=== PATIENT | male | born 2000 | race Caucasian/White ===

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

== ENCOUNTER 2020-02-19 11:04 | Inpatient (IN) | payer MEDICAID, SELFPAY ==
[2020-02-19 11:08] VITALS: BP 160/73; PULSE 89; RESP 16; TEMP 36.8; O2SAT 99
--- NOTE | 2020-02-19 11:28 | CMSP_ITS ---
- If Service Date Differs Date of service: 02/19/20 Time of Service: 11:28 Care Management Safety Plan Chief Complaint: Skyler is a 19 year old male who presents in the emergency department for suicidal and homicidal ideation. Skyler has diagnoses of record of conduct disorder, depressed mood, drug abuse, and insomnia. He was hospitalized at the [facility] for suicidal ideation in January of 2019. Skyler is pleasant and talkative when meets with him. He talks in great detail about his view of himself, others and the world. During the conversation, he mentions he was involved in a relationship with a young woman who recently moved out of state and shares that the loss of this relationship is contributing to his suicidal thoughts. Skyler was assessed by Jania [facility] crisis screener, and found to meet criteria for a voluntary psychiatric hospitalization. A referral is faxed to [facility] for review. All other [facility] are full at this time and not accepting referrals. VOLUNTARY FOR INPATIENT PSYCHIATRIC STABILIZATION. Patient is appropriate in all interactions since arriving at [facility]; Pt has demonstrated appropriate coping and communication skills, has articulated his needs and concerns and is fully engaged during staff interactions. Safety plan has been established with patient, and care team, to adhere to patient goals, identify restrictions based on behavioral status, address nutrition, and determine allowed personal belongings, tools for hygiene and personal care. Determine level of activity including ambulation, level of supervision, visitors, and determine privileges based on behaviors and level of engagement by pt. SAFETY PLAN: 1. Will remain on suicide precautions and in paper clothes. 2. Will remain in room under direct supervision of one-on-one staff at all times provided by CPSO, HOOKER LASTER, SUPPORT ASSOCIATE roll scale worker. 3. May have paper cups, plates, finger foods as well as a cardboard spoon with which to eat meals. 4. Follow [facility] Management of the Admitted Behavioral Health Patient policy. 5. Comfort bath system only while in the ED. If moved to Med/Surg, patient will be allowed to shower at nursing discretion. 6. No personal belongings 7. Visitors: No visitors at this time. 8. Activities: Soft tip markers, paper, television if available, and other activities at nursing discretion. He enjoys talking to people and likes to draw. 8. No telephone privileges at this time. 9. Due to VOLUNTARY status, if patient wishes to leave [facility], the [facility] plaster and stucco worker must be contacted to re-evaluate patient prior to patient exiting the building. If deemed appropriate for inpatient psychiatric care, safety plan will be established with patient, and care team, to adhere to patient goals, identify restrictions based on behavioral status, address nutrition, and determine allowed personal belongings, tools for hygiene and personal care. As well plan will determine level of activity including ambulation, level of supervision, visitors, and determine privileges based on level of acuity, behaviors and level of engagement by patient.
[2020-02-19 12:02] LABS: Abs Immature Grans 0.08 10^3/uL (0.0-0.06); Absolute Basophil Count 0.05 10^3/uL (0.0-0.2); Absolute Eosinophil Count 0.15 10^3/uL (0.0-0.7); Absolute Lymphocyte Count 1.96 10^3/uL (1.2-3.4); Absolute Monocyte Count 0.58 10^3/uL (0.1-0.8); Absolute Neutrophil Count 4.43 10^3/uL (1.2-6.7); Basophils % 0.7; Eosinophils % 2.1; HCT 47.9 % (40.0-50.0); HGB 16.1 g/dL (13.5-17.5); Immature Grans % 1.1; MCH 31.7 pg (27.0-33.0); MCHC 33.6 % (32.0-36.0); MCV 94.3 fL (80-95); MPV 9.6 fL (8.0-11.0); Neutrophils % 61.1; Nucleated RBC 0 %; Platelet Count 274 10^3/uL (130-400); RBC 5.08 10^6/uL (4.36-5.78); RDW 11.9 % (11.8-14.1); RDW-SD 42.1 fL; WBC 7.25 10^3/uL (4.4-10.8)
[2020-02-19 12:26] LABS: ALT 61 U/L (16-63); AST 30 U/L (15-37); Albumin 4.4 g/dL (3.4-5.0); Alkaline Phosphatase 78 U/L (46-116); Anion Gap 9.1 mmol/L (3-11); BUN 13 mg/dL (7-18); Bilirubin, Total 0.5 mg/dL (0.2-1.0); CO2 27.9 mmol/L (21.0-32.0); CREATININE 1.05 mg/dL (0.70-1.30); Calcium 9.6 mg/dL (8.5-10.1); Chloride 101 mmol/L (98-107); Glucose 106 mg/dL (74-106); Potassium 3.8 mmol/L (3.5-5.1); Sodium 138 mmol/L (136-145); TSH 2.15 uIU/mL (0.52-4.13); Total Protein 7.8 g/dL (6.4-8.2)
--- NOTE | 2020-02-19 12:34 | PDOC.MHCN_ITS ---
Date of service: 02/19/20 Time of Service: 12:00 Mental Health Crisis Note Presenting Issue How did you arrive at the ED and why did you come: Client arrived by himself to the ED Precipitating Factors Client endorsed SI and HI but describes them as intrusive thoughts and that he would not act on them. Disposition BEHAVIOR: Client was cooperative but presented with apprehension. EYE CONTACT: Client was able to maintain an appropriate level of eye contact. MOOD: Client presented with euthymic mood. AFFECT: Client presented with blunted affect APPETITE: Client stated he his appetite was okay. SLEEP(trouble falling/staying asleep: Client reported he had not slept for 2 days Plan Client is has agreed to go inpatient on voluntary status. Client is to stay at [facility] till he gets placement. Signature Clinician's Name/Title: Jania Mcdaniel Emergency Services Clinician
--- NOTE | 2020-02-19 12:34 | NUR.NOTE ---
Nursing Note: offered food. Pt states he is fasting and declines food at this time. Pt states he is gluten free and only eats meat or vegetables.
[2020-02-19 12:37] LABS: ETHANOL BLOOD < 3.0 mg/dL (<3)
[2020-02-19 12:43] LABS: Bilirubin Negative (Negative); Blood Negative (Negative); Clarity Clear (Clear); Glucose Negative (Negative); Ketones Negative (Negative); Leukocyte Esterase Negative (Negative); Nitrite Negative (Negative); Specific Gravity 1.025 (1.005-1.025); Urobilinogen 0.2 EU/dL (Up TO 0.2)
[2020-02-19 12:54] LABS: *AMPHETAMINES SCREEN URINE Negative (Negative); *BARBITURATES SCREEN URINE Negative (Negative); *BENZODIAZEPINES SCREEN URINE Negative (Negative); Cannabinoids THC POSITIVE (Negative); Cocaine Screen,Urine Negative (Negative); METHADONE URINE SCREEN Negative (Negative); OPIATES URINE SCREEN Negative (Negative); Tricyclic Antidepressants Negative (Negative)
--- NOTE | 2020-02-19 12:57 | PDOC.MHCN ---
Date of service: 02/23/20 Time of Service: 09:40 Mental Health Crisis Note Presenting Issue How did you arrive at the ED and why did you come: Client arrived to ED via self Precipitating Factors Client endorsed SI but no HI. Client described this as intrusive thoughts and that he would not act on them. Disposition BEHAVIOR: Client presented as cooperative but uninterested in talking EYE CONTACT: Client made no eye contact. Client had his eyes closed the whole time MOOD: Client presented with dysphoric mood AFFECT: Client presented with flat affect APPETITE: Client reported he had good appetite SLEEP(trouble falling/staying asleep: Client reported he had
--- NOTE | 2020-02-19 13:02 | W.ED.GENAD ---
Discharge Plan Disposition Patient Disposition: OTHER Condition: Serious Discharge Details Chief Complaint: PsychEval Clinical Impression: Suicidal ideation, Homicidal ideation Primary Care Provider: Laron Smith ED Provider: Neo Coles Home Meds and New Rx's Prescriptions: No Action omeprazole 20 mg capsule,delayed release(DR/EC) 20 mg PO DAILY Qty: 90 RF: 2 Medical Decision Making 18-year-old gentleman with slightly unclear psychiatric history, not taking any psychiatric medications, presents to the ER reporting suicidal and homicidal ideations. He reports that he is a high school dropout, lives on food stamps, a female friend recently moved away, all causing increased stress. He denies any self-harm today. He denies homicidal ideations to anyone in particular. Denies recent illness or trauma. No medical complaints at this time. I have placed a consultation to care management, mental health, and placed a CPSO. Patient is calm and cooperative here in the ER. Clinically I believe that he is medically cleared but given he is requesting inpatient hospitalization I will obtain laboratory values for medically clearing at a psychiatric facility. COVID also pending Laboratory values do not reveal any obvious emergent process. TSH 2.15 urine tox screen positive for THC, alcohol less than 3. [facility], [facility] human services, evaluated the patient. Please see their note. They are going to initiate a search for voluntary placement. He will need a negative COVID prior to placement. Given this we will speak with the hospitalist team to admit to our facility until psychiatric placement can be found. Medical Records Medical records reviewed: Yes I reviewed the patient's medical records. Lab Data Lab results reviewed: Yes I reviewed the patient's lab results. Lab results narrative: Laboratory Tests Range/Units 02/19/20 02/19/20 02/19/20 11:55 11:55 12:25 WBC (4.4-10.8) 10^3/uL 7.25 RBC (4.36-5.78) 10^6/uL 5.08 Hgb (13.5-17.5) g/dL 16.1 Hct (40.0-50.0) % 47.9 MCV (80-95) fL 94.3 MCH (27.0-33.0) pg 31.7 MCHC (32.0-36.0) % 33.6 RDW (11.8-14.1) % 11.9 Plt Count (130-400) 10^3/uL 274 MPV (8.0-11.0) fL 9.6 Immature Gran % 1.1 Neutrophils % 61.1 Lymphocytes % 27.0 Monocytes % 8.0 Eosinophils % 2.1 Basophils % 0.7 Nucleated RBC % % 0 Absolute Neutrophils (1.2-6.7) 10^3/uL 4.43 Absolute Lymphocytes (1.2-3.4) 10^3/uL 1.96 Absolute Monocytes (0.1-0.8) 10^3/uL 0.58 Absolute Eosinophils (0.0-0.7) 10^3/uL 0.15 Absolute Basophils (0.0-0.2) 10^3/uL 0.05 Sodium (136-145) mmol/L 138 Potassium (3.5-5.1) mmol/L 3.8 Chloride (98-107) mmol/L 101 Carbon Dioxide (21.0-32.0) mmol/L 27.9 Anion Gap (3-11) mmol/L 9.1 BUN (7-18) mg/dL 13 Creatinine (0.70-1.30) mg/dL 1.05 Estimated GFR/1.73 m2 (mL/min/1.73m2) >= 60.00 Glucose (74-106) mg/dL 106 Calcium (8.5-10.1) mg/dL 9.6 Total Bilirubin (0.2-1.0) mg/dL 0.5 AST (15-37) U/L 30 ALT (16-63) U/L 61 Alkaline Phosphatase (46-116) U/L 78 Total Protein (6.4-8.2) g/dL 7.8 Albumin (3.4-5.0) g/dL 4.4 TSH (0.52-4.13) uIU/mL 2.15 Urine Color (Yellow) Urine Clarity (Clear) Urine pH (5-8) Ur Specific [place] (1.005-1.025) Urine Protein (Negative) mg/dL Urine Ketones (Negative) mg/dL Urine Blood (Negative) Urine Nitrite (Negative) Urine Bilirubin (Negative) Urine Urobilinogen (Up TO 0.2) EU/dL Ur Leukocyte Esterase (Negative) Urine Glucose (Negative) mg/dL Urine Opiates Screen (Negative) Negative Urine Methadone Screen (Negative) Negative Ur Barbiturates Screen (Negative) Negative Ur Tricyclics Screen (Negative) Negative Ur Amphetamines Screen (Negative) Negative U Benzodiazepines Scrn (Negative) Negative Urine Cocaine Screen (Negative) Negative Ur THC Screen (Negative) Positive A Ethyl Alcohol (<3) mg/dL < 3.0 Range/Units 02/19/20 12:25 WBC (4.4-10.8) 10^3/uL RBC (4.36-5.78) 10^6/uL Hgb (13.5-17.5) g/dL Hct (40.0-50.0) % MCV (80-95) fL MCH (27.0-33.0) pg MCHC (32.0-36.0) % RDW (11.8-14.1) % Plt Count (130-400) 10^3/uL MPV (8.0-11.0) fL Immature Gran % Neutrophils % Lymphocytes % Monocytes % Eosinophils % Basophils % Nucleated RBC % % Absolute Neutrophils (1.2-6.7) 10^3/uL Absolute Lymphocytes (1.2-3.4) 10^3/uL Absolute Monocytes (0.1-0.8) 10^3/uL Absolute Eosinophils (0.0-0.7) 10^3/uL Absolute Basophils (0.0-0.2) 10^3/uL Sodium (136-145) mmol/L Potassium (3.5-5.1) mmol/L Chloride (98-107) mmol/L Carbon Dioxide (21.0-32.0) mmol/L Anion Gap (3-11) mmol/L BUN (7-18) mg/dL Creatinine (0.70-1.30) mg/dL Estimated GFR/1.73 m2 (mL/min/1.73m2) Glucose (74-106) mg/dL Calcium (8.5-10.1) mg/dL Total Bilirubin (0.2-1.0) mg/dL AST (15-37) U/L ALT (16-63) U/L Alkaline Phosphatase (46-116) U/L Total Protein (6.4-8.2) g/dL Albumin (3.4-5.0) g/dL TSH (0.52-4.13) uIU/mL Urine Color (Yellow) Yellow Urine Clarity (Clear) Clear Urine pH (5-8) 6.0 Ur Specific [place] (1.005-1.025) 1.025 Urine Protein (Negative) mg/dL Negative Urine Ketones (Negative) mg/dL Negative Urine Blood (Negative) Negative Urine Nitrite (Negative) Negative Urine Bilirubin (Negative) Negative Urine Urobilinogen (Up TO 0.2) EU/dL 0.2 Ur Leukocyte Esterase (Negative) Negative Urine Glucose (Negative) mg/dL Negative Urine Opiates Screen (Negative) Urine Methadone Screen (Negative) Ur Barbiturates Screen (Negative) Ur Tricyclics Screen (Negative) Ur Amphetamines Screen (Negative) U Benzodiazepines Scrn (Negative) Urine Cocaine Screen (Negative) Ur THC Screen (Negative) Ethyl Alcohol (<3) mg/dL HPI General Mode of arrival: ambulatory. Date/Time Provider Initiated Documentation: 02/19/20 11:18. Limitations to Documentation: no limitations. Information obtained by: patient. HPI Narrative: This is a 19-year-old male who presents to the ER feeling both suicidal and homicidal. He reports that has been going on for quite some time but worse over the last week. A female neighbor recently moved and this was a stressor. He admits to a history of anxiety, depression, possibly bipolar. He tells me that he questions if he may have ADHD. He is not on any medications for any psychiatric disorders. He denies recent illness or trauma. Although he is feeling both suicidal and homicidal he does not want to act upon either of these feelings. He admits to having self cut in the past but never a true suicide attempt. He admits to smoking cigarettes, occasional alcohol, and polysubstance abuse whenever he has the opportunity. He did not do anything today to harm himself. He is requesting a voluntary inpatient psychiatric placement. He does have an outpatient counselor but he has not talked to them today. He tells me that he has been doing some of his own research and wonders if gabapentin may be an appropriate medication for him. Related Data Home Medications Medication Instructions Recorded Confirmed omeprazole 20 mg capsule,delayed 20 mg PO DAILY #90 cap 12/21/19 02/19/20 release Previous Rx's Medication Instructions Recorded omeprazole 20 mg capsule,delayed 20 mg PO DAILY #90 cap 12/21/19 release Allergies Allergy/AdvReac Type Severity Reaction Status Date / Time ampicillin Allergy Skin Rash Verified 02/19/20 11:15 ampicillin sodium Allergy Skin Rash Verified 02/19/20 11:15 [From Unasyn] sulbactam sodium Allergy Skin Rash Verified 02/19/20 11:15 [From Unasyn] sulfamethoxazole Allergy Skin Rash Verified 02/19/20 11:15 [From Bactrim] trimethoprim [From Bactrim] Allergy Skin Rash Verified 02/19/20 11:15 acetaminophen [From Tylenol] AdvReac Intermediate head fog Verified 02/19/20 11:15 amitriptyline AdvReac Intermediate Agitation Verified 02/19/20 11:15 trazodone AdvReac Intermediate Agitation Verified 02/19/20 11:15 diphenhydramine AdvReac Other (See Verified 02/19/20 11:15 [From Benadryl] Comment) General Stated Complaint: PsychEval RADHA: 2 Review of Systems Constitutional Constitutional: Denies fatigue, Denies fever(s) and Denies headache(s) Eyes Eyes: Denies change in vision ENT Ears, Nose, Mouth, and Throat: Denies headache(s) and Denies neck pain Cardiovascular Cardiovascular: Denies chest pain and Denies dyspnea Respiratory Respiratory: Denies dyspnea Gastrointestinal Gastrointestinal: Denies abdominal pain, Denies nausea and Denies vomiting Musculoskeletal Musculoskeletal: Denies neck pain, Denies numbness and Denies tingling Integumentary/Breasts Skin/Breast: Denies rash Neurologic Neurologic: Denies headache(s), Denies numbness and Denies tingling Psychiatric Psychiatric: Reports anxiety, Reports depression, Reports homicidal ideation and Reports suicidal ideation Endocrine Endocrine: Denies fatigue [facility] Medical History Conduct disorder (Acute) Depressed mood (Chronic) Drug abuse (Acute) Primary insomnia (Acute) Surgical History S/P appendectomy (Acute ~06/17/10) Family History Father Substance abuse Depression Mother Anxiety Sister Anxiety Depression Social History Smoking/Tobacco Use Status: Current-Occasional Tobacco: How many years used: 1 Alcohol Intake: current Alcohol Intake frequency: a few times a month Drug use: Never Substance use type: marijuana and hallucinogens Details: Pt has used various illicit hallucinigens in the past but denies using them currently Adopted: No Caregiver/Support person: No Foster care: No Household members: none Housing: other Do you need help understanding health information?: Rarely current occupation: UnEmployed Sexually active: Yes Do you think of yourself as: straight/heterosexual Current gender identity: male Do you feel safe at home: No Do you feel safe in your relationship?: No Exam Const General: cooperative, healthy appearing, comfortable and no acute distress Orientation: alert, awake and oriented x3 HENMT Head: normal to inspection, normocephalic and atraumatic Face and sinus: normal facial exam Mouth: moist mucous membranes Throat: posterior oropharynx normal Eyes General: appearance normal, both eyes and all related structures Alignment and Position: alignment normal Periorbital: periorbital findings normal Eyelids: eyelids normal Conjunctivae: conjunctivae normal Sclera: sclerae normal Cornea: corneas normal Pupils: PERRL EOM: EOM intact bilaterally Direct ophthalmoscopy: normal light reflex Neck Neck: normal visual inspection, full ROM, no meningeal signs, trachea midline and supple Resp Effort & Inspection: normal respiratory effort and able to speak in complete sentences Auscultation: clear to auscultation bilaterally Cardio Rate: regular rate Rhythm: regular rhythm GI Palpation: soft and nontender Back/Spine/Pelvis Back: No back tenderness Skin General skin exam: no rashes or lesions noted Neuro General: patient alert, patient awake, patient oriented x3, moves all extremities and no focal motor deficits Cranial Nerves: CN's II-XI intact bilaterally Speech: speech normal Gait: normal gait Motor: muscle tone normal throughout Sensory Exam: no sensory deficits noted Extrem General: normal to inspection, full ROM and capillary refill normal Psych Appearance: grossly normal Mental Status: mental status grossly normal Speech and Movement: speech and movement normal Mood: dysthymic mood Affect: sad Attitude: cooperative Thought Content: homicidality and suicidality Insight: fair Judgment: fair Course Vital Signs Vital signs: Vital Signs Temperature 36.8 C 02/19/20 11:08 Pulse 89 02/19/20 11:08 Respiratory Rate 16 02/19/20 11:08 Blood Pressure 160/73 H 02/19/20 11:08 Pulse Oximetry 99 02/19/20 11:08 Temperature 36.8 C 02/19/20 11:08 Temperature Source Tympanic 02/19/20 11:08 Pulse 89 02/19/20 11:08 Respiratory Rate 16 02/19/20 11:08 Respiratory Effort Non-Labored 02/19/20 11:48 Blood Pressure 160/73 H 02/19/20 11:08 Blood Pressure Position Sitting 02/19/20 11:08 Pulse Oximetry 99 02/19/20 11:08 Oxygen Delivery Method Room Air 02/19/20 11:08 Oxygen Flow Rate 0 02/19/20 11:08 Pain Level 4 02/19/20 11:08 Comment 02/19/20 11:08 Lab/Test Results Lab/Test Results: Laboratory Tests Range/Units 02/19/20 02/19/20 02/19/20 11:55 11:55 12:25 WBC (4.4-10.8) 10^3/uL 7.25 RBC (4.36-5.78) 10^6/uL 5.08 Hgb (13.5-17.5) g/dL 16.1 Hct (40.0-50.0) % 47.9 MCV (80-95) fL 94.3 MCH (27.0-33.0) pg 31.7 MCHC (32.0-36.0) % 33.6 RDW (11.8-14.1) % 11.9 Plt Count (130-400) 10^3/uL 274 MPV (8.0-11.0) fL 9.6 Immature Gran % 1.1 Neutrophils % 61.1 Lymphocytes % 27.0 Monocytes % 8.0 Eosinophils % 2.1 Basophils % 0.7 Nucleated RBC % % 0 Absolute Neutrophils (1.2-6.7) 10^3/uL 4.43 Absolute Lymphocytes (1.2-3.4) 10^3/uL 1.96 Absolute Monocytes (0.1-0.8) 10^3/uL 0.58 Absolute Eosinophils (0.0-0.7) 10^3/uL 0.15 Absolute Basophils (0.0-0.2) 10^3/uL 0.05 Sodium (136-145) mmol/L 138 Potassium (3.5-5.1) mmol/L 3.8 Chloride (98-107) mmol/L 101 Carbon Dioxide (21.0-32.0) mmol/L 27.9 Anion Gap (3-11) mmol/L 9.1 BUN (7-18) mg/dL 13 Creatinine (0.70-1.30) mg/dL 1.05 Estimated GFR/1.73 m2 (mL/min/1.73m2) >= 60.00 Glucose (74-106) mg/dL 106 Calcium (8.5-10.1) mg/dL 9.6 Total Bilirubin (0.2-1.0) mg/dL 0.5 AST (15-37) U/L 30 ALT (16-63) U/L 61 Alkaline Phosphatase (46-116) U/L 78 Total Protein (6.4-8.2) g/dL 7.8 Albumin (3.4-5.0) g/dL 4.4 TSH (0.52-4.13) uIU/mL 2.15 Urine Color (Yellow) Urine Clarity (Clear) Urine pH (5-8) Ur Specific [place] (1.005-1.025) Urine Protein (Negative) mg/dL Urine Ketones (Negative) mg/dL Urine Blood (Negative) Urine Nitrite (Negative) Urine Bilirubin (Negative) Urine Urobilinogen (Up TO 0.2) EU/dL Ur Leukocyte Esterase (Negative) Urine Glucose (Negative) mg/dL Urine Opiates Screen (Negative) Negative Urine Methadone Screen (Negative) Negative Ur Barbiturates Screen (Negative) Negative Ur Tricyclics Screen (Negative) Negative Ur Amphetamines Screen (Negative) Negative U Benzodiazepines Scrn (Negative) Negative Urine Cocaine Screen (Negative) Negative Ur THC Screen (Negative) Positive A Ethyl Alcohol (<3) mg/dL < 3.0 Range/Units 02/19/20 12:25 WBC (4.4-10.8) 10^3/uL RBC (4.36-5.78) 10^6/uL Hgb (13.5-17.5) g/dL Hct (40.0-50.0) % MCV (80-95) fL MCH (27.0-33.0) pg MCHC (32.0-36.0) % RDW (11.8-14.1) % Plt Count (130-400) 10^3/uL MPV (8.0-11.0) fL Immature Gran % Neutrophils % Lymphocytes % Monocytes % Eosinophils % Basophils % Nucleated RBC % % Absolute Neutrophils (1.2-6.7) 10^3/uL Absolute Lymphocytes (1.2-3.4) 10^3/uL Absolute Monocytes (0.1-0.8) 10^3/uL Absolute Eosinophils (0.0-0.7) 10^3/uL Absolute Basophils (0.0-0.2) 10^3/uL Sodium (136-145) mmol/L Potassium (3.5-5.1) mmol/L Chloride (98-107) mmol/L Carbon Dioxide (21.0-32.0) mmol/L Anion Gap (3-11) mmol/L BUN (7-18) mg/dL Creatinine (0.70-1.30) mg/dL Estimated GFR/1.73 m2 (mL/min/1.73m2) Glucose (74-106) mg/dL Calcium (8.5-10.1) mg/dL Total Bilirubin (0.2-1.0) mg/dL AST (15-37) U/L ALT (16-63) U/L Alkaline Phosphatase (46-116) U/L Total Protein (6.4-8.2) g/dL Albumin (3.4-5.0) g/dL TSH (0.52-4.13) uIU/mL Urine Color (Yellow) Yellow Urine Clarity (Clear) Clear Urine pH (5-8) 6.0 Ur Specific [place] (1.005-1.025) 1.025 Urine Protein (Negative) mg/dL Negative Urine Ketones (Negative) mg/dL Negative Urine Blood (Negative) Negative Urine Nitrite (Negative) Negative Urine Bilirubin (Negative) Negative Urine Urobilinogen (Up TO 0.2) EU/dL 0.2 Ur Leukocyte Esterase (Negative) Negative Urine Glucose (Negative) mg/dL Negative Urine Opiates Screen (Negative) Urine Methadone Screen (Negative) Ur Barbiturates Screen (Negative) Ur Tricyclics Screen (Negative) Ur Amphetamines Screen (Negative) U Benzodiazepines Scrn (Negative) Urine Cocaine Screen (Negative) Ur THC Screen (Negative) Ethyl Alcohol (<3) mg/dL
[2020-02-19 14:00] VITALS: BP 127/82; PULSE 69; RESP 18; TEMP 35.8; O2SAT 100
--- NOTE | 2020-02-19 14:54 | HPE_ITS ---
Date of service: 02/19/20 Time of Service: 14:55 Assessment and Plan Assessment and plan (1) Depressed mood: Start date: 02/19/20 Start time: 15:14 Status: Chronic Assessment and plan: Reports to ED for thoughts of harming self and others, no active plans. Worsening depression from recent stressors. Not actively suicidal at this time. He is awaiting placement with COVID pending. Clinical observer present, cleared by the ED, made him voluntary for admission. Not currently on any medications for mood. (2) Homicidal ideation: Start date: 02/19/20 Start time: 15:15 Status: Acute Assessment and plan: As above Above case discussed with Dr. Ta who is in agreement. History of Present Illness History of Present Illness Chief Complaint: Psych Narrative: 19 y.o male presents to ED today with thoughts of Suicide and Homicide. Unclear on psychiatric history he does endorse previous stay at [facility] though he is not on any medications at this time. He denies self harm at this time. In the past he states he has been on an SSRI, other antonio he noah with stressors by using ketamin and LSD, last use was last week. Smokes marijuana and cigarettes daily. Currently he is not receiving psych assistance per him but has in the past. In the ED labs obtained unremarkable, urine tox screen positive for THC. COVID pending. He was asked to be admitted under hospitalist service while waiting bed placement. Review of Systems All systems reviewed & are unremarkable except as noted in HPI and below PFSH Medical History (Updated 02/19/20 @ 15:11 by Gypsy Boyce NP) Acne (Inactive) Anxiety (Inactive) Conduct disorder (Inactive) Depressed mood (Chronic) Drug abuse (Inactive) Encounter to establish care (Inactive) Poor appetite (Inactive) Primary insomnia (Inactive) Suicidal ideation (Inactive) Surgical History S/P appendectomy (Acute ~06/17/10) Family History Father Substance abuse Depression Mother Anxiety Sister Anxiety Depression Social History Smoking/Tobacco Use Status: Current-Occasional Tobacco: How many years used: 1 Alcohol Intake: current Alcohol Intake frequency: a few times a month Drug use: Never Substance use type: marijuana and hallucinogens Details: Pt has used various illicit hallucinigens in the past but denies using them currently Adopted: No Caregiver/Support person: No Foster care: No Household members: none Housing: other Do you need help understanding health information?: Rarely current occupation: UnEmployed Sexually active: Yes Do you think of yourself as: straight/heterosexual Current gender identity: male Do you feel safe at home: No Do you feel safe in your relationship?: No Meds Home Medications and Allergies Home Medications Medication Instructions Recorded Confirmed Type omeprazole 20 mg capsule,delayed 20 mg PO DAILY #90 cap 12/21/19 02/19/20 Rx release Allergies Allergy/AdvReac Type Severity Reaction Status Date / Time ampicillin Allergy Skin Rash Verified 02/19/20 11:15 ampicillin sodium Allergy Skin Rash Verified 02/19/20 11:15 [From Unasyn] sulbactam sodium Allergy Skin Rash Verified 02/19/20 11:15 [From Unasyn] sulfamethoxazole Allergy Skin Rash Verified 02/19/20 11:15 [From Bactrim] trimethoprim [From Bactrim] Allergy Skin Rash Verified 02/19/20 11:15 acetaminophen [From Tylenol] AdvReac Intermediate head fog Verified 02/19/20 11:15 amitriptyline AdvReac Intermediate Agitation Verified 02/19/20 11:15 trazodone AdvReac Intermediate Agitation Verified 02/19/20 11:15 diphenhydramine AdvReac Other (See Verified 02/19/20 11:15 [From Benadryl] Comment) Exam Const General: cooperative and no acute distress Nutritional Appearance: thin Orientation: alert, awake and oriented x3 HENMT Head: normal to inspection, normocephalic and atraumatic Mouth: moist mucous membranes Eyes General: appearance normal, both eyes and all related structures Conjunctivae: conjunctivae normal Sclera: sclerae normal Cornea: corneas normal Pupils: PERRL EOM: EOM intact bilaterally Neck Neck: normal visual inspection, full ROM and no JVD Chest Chest: normal inspection of the chest Resp Effort & Inspection: normal respiratory effort and able to speak in complete sentences Auscultation: clear to auscultation bilaterally Cardio Jugular venous pressure: no JVD Rate: regular rate Rhythm: regular rhythm Heart Sounds: S1 normal and S2 normal GI Inspection: normal to inspection Palpation: soft and no hepatosplenomegaly General: deferred Back/Spine/Pelvis Back: no CVA tenderness Thoracic/Lumbar Spine: thoracic and lumbar spine normal to inspection Skin General skin exam: no rashes or lesions noted Neuro General: patient alert, patient awake and patient oriented x3 Extrem General: normal to inspection, full ROM and no clubbing, cyanosis or edema Psych Speech and Movement: speech and movement normal Mood: expansive Affect: animated Attitude: avoids eye contact Thought Process: illogical Thought Content: ideas of reference Insight: poor Judgment: poor Results Labs Result diagrams: 02/19/20 11:55 02/19/20 11:55 Labs: Laboratory Results - last 24 hr 02/19/20 02/19/20 02/19/20 11:55 11:55 12:25 WBC 7.25 RBC 5.08 Hgb 16.1 Hct 47.9 MCV 94.3 MCH 31.7 MCHC 33.6 RDW 11.9 Plt Count 274 MPV 9.6 Immature Gran % 1.1 Neutrophils % 61.1 Lymphocytes % 27.0 Monocytes % 8.0 Eosinophils % 2.1 Basophils % 0.7 Nucleated RBC % 0 Absolute Neutrophils 4.43 Absolute Lymphocytes 1.96 Absolute Monocytes 0.58 Absolute Eosinophils 0.15 Absolute Basophils 0.05 Sodium 138 Potassium 3.8 Chloride 101 Carbon Dioxide 27.9 Anion Gap 9.1 BUN 13 Creatinine 1.05 Estimated GFR/1.73 m2 >= 60.00 Glucose 106 Calcium 9.6 Total Bilirubin 0.5 AST 30 ALT 61 Alkaline Phosphatase 78 Total Protein 7.8 Albumin 4.4 TSH 2.15 Urine Color Urine Clarity Urine pH Ur Specific [place] Urine Protein Urine Ketones Urine Blood Urine Nitrite Urine Bilirubin Urine Urobilinogen Ur Leukocyte Esterase Urine Glucose Urine Opiates Screen Negative Urine Methadone Screen Negative Ur Barbiturates Screen Negative Ur Tricyclics Screen Negative Ur Amphetamines Screen Negative U Benzodiazepines Scrn Negative Urine Cocaine Screen Negative Ur THC Screen Positive A Ethyl Alcohol < 3.0 02/19/20 12:25 WBC RBC Hgb Hct MCV MCH MCHC RDW Plt Count MPV Immature Gran % Neutrophils % Lymphocytes % Monocytes % Eosinophils % Basophils % Nucleated RBC % Absolute Neutrophils Absolute Lymphocytes Absolute Monocytes Absolute Eosinophils Absolute Basophils Sodium Potassium Chloride Carbon Dioxide Anion Gap BUN Creatinine Estimated GFR/1.73 m2 Glucose Calcium Total Bilirubin AST ALT Alkaline Phosphatase Total Protein Albumin TSH Urine Color Yellow Urine Clarity Clear Urine pH 6.0 Ur Specific [place] 1.025 Urine Protein Negative Urine Ketones Negative Urine Blood Negative Urine Nitrite Negative Urine Bilirubin Negative Urine Urobilinogen 0.2 Ur Leukocyte Esterase Negative Urine Glucose Negative Urine Opiates Screen Urine Methadone Screen Ur Barbiturates Screen Ur Tricyclics Screen Ur Amphetamines Screen U Benzodiazepines Scrn Urine Cocaine Screen Ur THC Screen Ethyl Alcohol Last Vital Signs Temp 35.8 C L 02/19/20 14:00 Pulse 69 02/19/20 14:00 Resp 18 02/19/20 14:00 BP 127/82 02/19/20 14:00 Pulse Ox 100 02/19/20 14:00 COVID-19 Screening Have you,or household,traveled outside [place] in last 14 days?: No Had IN PERSON contact w/suspected or confirmed C-19 person: No
[2020-02-19 22:13] LABS: COVID-19 RT-PCR UVMMC Result Negative (Negative)
[2020-02-20 00:08] VITALS: BP 117/73; PULSE 72; RESP 18; TEMP 36.9; O2SAT 99
[2020-02-20] MEDS: busPIRone 5 MG TAB (01:05)
[2020-02-20 08:36] VITALS: BP 110/68; PULSE 67; RESP 16; TEMP 35.7; O2SAT 98
--- NOTE | 2020-02-20 09:34 | PGE_ITS ---
Date of Service Date of service: 02/20/20 Time of Service: 09:34 Assessment and Plan Assessment and plan (1) Depressed mood: Start date: 02/20/20 Start time: 09:34 Status: Chronic Assessment and plan: Did request something for anxiety last night, specifically klonipin. He was given a dose of buspar. No anxious at this time. He is not having active thoughts of SI/HI 1:1 patient observer Awaiting bed placement. (2) Homicidal ideation: Start date: 02/20/20 Start time: 09:45 Status: Acute Assessment and plan: As above Above case discussed with Dr. Wharton who is in agreement. Subjective Subjective Patient reports: no new complaints Interval history since last seen: Lying in bed, no active thought SI/HI Exam Const General: cooperative and no acute distress Nutritional Appearance: thin Orientation: alert, awake and oriented x3 HENMT Head: normal to inspection, normocephalic and atraumatic Mouth: moist mucous membranes Eyes General: appearance normal, both eyes and all related structures Conjunctivae: conjunctivae normal Sclera: sclerae normal Cornea: corneas normal Pupils: PERRL EOM: EOM intact bilaterally Neck Neck: normal visual inspection, full ROM and no JVD Chest Chest: normal inspection of the chest Resp Effort & Inspection: normal respiratory effort and able to speak in complete sentences Auscultation: clear to auscultation bilaterally Cardio Jugular venous pressure: no JVD Rate: regular rate Rhythm: regular rhythm Heart Sounds: S1 normal and S2 normal GI Inspection: normal to inspection Palpation: soft and no hepatosplenomegaly General: deferred Back/Spine/Pelvis Back: no CVA tenderness Thoracic/Lumbar Spine: thoracic and lumbar spine normal to inspection Skin General skin exam: no rashes or lesions noted Neuro General: patient alert, patient awake and patient oriented x3 Extrem General: normal to inspection, full ROM and no clubbing, cyanosis or edema Psych Speech and Movement: speech and movement normal Mood: expansive Affect: animated Attitude: avoids eye contact Thought Process: illogical Thought Content: ideas of reference Insight: poor Judgment: poor Objective Objective Clinical Data: Abnormal lab results 02/19/20 Range/Units 12:25 Ur THC Screen Positive A (Negative) Vital Signs Temperature 35.7 C L 02/20/20 08:36 Temperature Source Tympanic 02/20/20 08:36 Pulse 67 02/20/20 08:36 Pulse Rhythm Regular 02/20/20 00:00 Respiratory Rate 16 02/20/20 08:36 Respiratory Effort 02/20/20 00:00 Respiratory Depth Normal 02/20/20 00:00 Respiratory Pattern Normal 02/20/20 00:00 Blood Pressure 110/68 02/20/20 08:36 Blood Pressure Position Sitting 02/19/20 11:08 Pulse Oximetry 98 02/20/20 08:36 Oxygen Delivery Method Room Air 02/20/20 08:36 Oxygen Flow Rate 0 02/20/20 08:36 Pain Level 0 02/20/20 08:36 Comment 02/19/20 11:08 Intake & Output 02/19/20 02/19/20 02/20/20 11:59 23:59 11:59 Intake Total 150 / 150 Balance 150 / 150 Weight 66.678 kg 66.678 kg Intake: Oral 150 / 150 Other: Voiding Methods Toilet Laboratory Results WBC 7.25 10^3/uL (4.4-10.8) 02/19/20 11:55 RBC 5.08 10^6/uL (4.36-5.78) 02/19/20 11:55 Hgb 16.1 g/dL (13.5-17.5) 02/19/20 11:55 Hct 47.9 % (40.0-50.0) 02/19/20 11:55 MCV 94.3 fL (80-95) 02/19/20 11:55 MCH 31.7 pg (27.0-33.0) 02/19/20 11:55 MCHC 33.6 % (32.0-36.0) 02/19/20 11:55 RDW 11.9 % (11.8-14.1) 02/19/20 11:55 Plt Count 274 10^3/uL (130-400) 02/19/20 11:55 MPV 9.6 fL (8.0-11.0) 02/19/20 11:55 Immature Gran % 1.1 02/19/20 11:55 Neutrophils % 61.1 02/19/20 11:55 Lymphocytes % 27.0 02/19/20 11:55 Monocytes % 8.0 02/19/20 11:55 Eosinophils % 2.1 02/19/20 11:55 Basophils % 0.7 02/19/20 11:55 Nucleated RBC % 0 % 02/19/20 11:55 Absolute Neutrophils 4.43 10^3/uL (1.2-6.7) 02/19/20 11:55 Absolute Lymphocytes 1.96 10^3/uL (1.2-3.4) 02/19/20 11:55 Absolute Monocytes 0.58 10^3/uL (0.1-0.8) 02/19/20 11:55 Absolute Eosinophils 0.15 10^3/uL (0.0-0.7) 02/19/20 11:55 Absolute Basophils 0.05 10^3/uL (0.0-0.2) 02/19/20 11:55 Sodium 138 mmol/L (136-145) 02/19/20 11:55 Potassium 3.8 mmol/L (3.5-5.1) 02/19/20 11:55 Chloride 101 mmol/L (98-107) 02/19/20 11:55 Carbon Dioxide 27.9 mmol/L (21.0-32.0) 02/19/20 11:55 Anion Gap 9.1 mmol/L (3-11) 02/19/20 11:55 BUN 13 mg/dL (7-18) 02/19/20 11:55 Creatinine 1.05 mg/dL (0.70-1.30) 02/19/20 11:55 Estimated GFR/1.73 m2 >= 60.00 (mL/min/1.73m2) 02/19/20 11:55 Glucose 106 mg/dL (74-106) 02/19/20 11:55 Calcium 9.6 mg/dL (8.5-10.1) 02/19/20 11:55 Total Bilirubin 0.5 mg/dL (0.2-1.0) 02/19/20 11:55 AST 30 U/L (15-37) 02/19/20 11:55 ALT 61 U/L (16-63) 02/19/20 11:55 Alkaline Phosphatase 78 U/L (46-116) 02/19/20 11:55 Total Protein 7.8 g/dL (6.4-8.2) 02/19/20 11:55 Albumin 4.4 g/dL (3.4-5.0) 02/19/20 11:55 TSH 2.15 uIU/mL (0.52-4.13) 02/19/20 11:55 Urine Color Yellow (Yellow) 02/19/20 12:25 Urine Clarity Clear (Clear) 02/19/20 12:25 Urine pH 6.0 (5-8) 02/19/20 12:25 Ur Specific [place] 1.025 (1.005-1.025) 02/19/20 12:25 Urine Protein Negative mg/dL (Negative) 02/19/20 12:25 Urine Ketones Negative mg/dL (Negative) 02/19/20 12:25 Urine Blood Negative (Negative) 02/19/20 12:25 Urine Nitrite Negative (Negative) 02/19/20 12:25 Urine Bilirubin Negative (Negative) 02/19/20 12:25 Urine Urobilinogen 0.2 EU/dL (Up TO 0.2) 02/19/20 12:25 Ur Leukocyte Esterase Negative (Negative) 02/19/20 12:25 Urine Glucose Negative mg/dL (Negative) 02/19/20 12:25 Urine Opiates Screen Negative (Negative) 02/19/20 12:25 Urine Methadone Screen Negative (Negative) 02/19/20 12:25 Ur Barbiturates Screen Negative (Negative) 02/19/20 12:25 Ur Tricyclics Screen Negative (Negative) 02/19/20 12:25 Ur Amphetamines Screen Negative (Negative) 02/19/20 12:25 U Benzodiazepines Scrn Negative (Negative) 02/19/20 12:25 Urine Cocaine Screen Negative (Negative) 02/19/20 12:25 Ur THC Screen Positive (Negative) A 02/19/20 12:25 Ethyl Alcohol < 3.0 mg/dL (<3) 02/19/20 11:55 COVID-19 PCR Negative (Negative) 02/19/20 12:35 Nasopharyn COVID-19 PCR Not Applicable 02/19/20 12:35 Ref Test Perform Site [facility] 02/19/20 12:35
--- NOTE | 2020-02-20 10:27 | PDOC.MHCN ---
Date of service: 02/20/20 Time of Service: 10:27 Mental Health Crisis Note Presenting Issue How did you arrive at the ED and why did you come: Skyler came to the ER yesterday seeking a voluntary placement for thoughts of SI and HI. Precipitating Factors Skyler reported that he still has SI and HI when he is awake. Disposition BEHAVIOR: Skyler is asleep when I arrive. He wakes slightly to interact but is not real engaged. He is reported to be asking for Valium. EYE CONTACT: Eye contact is minimal. MOOD: Skyler reports he is still depressed. AFFECT: Skyler's affect is flat and tired. APPETITE: Skyler reported that he is eating. SLEEP(trouble falling/staying asleep: Skyler reported that he just wants to catch up on his sleep that he has not been getting. Plan Skyler is still seeking a voluntary placement. [facility] will continue to seek placement. Signature Clinician's Name/Title: Anabel Erickson MS, [facility] Emergency Services Clinician
--- NOTE | 2020-02-20 11:55 | PHA.REVIEW ---
Pharmacy Admission Review - Admission Clinical Review (Last Updated 02/19/20 @ 15:11 by Gypsy Boyce NP) Homicidal ideation (Acute) ampicillin Allergy (Verified 02/19/20 11:15) Skin Rash ampicillin sodium [From Unasyn] Allergy (Verified 02/19/20 11:15) Skin Rash sulbactam sodium [From Unasyn] Allergy (Verified 02/19/20 11:15) Skin Rash sulfamethoxazole [From Bactrim] Allergy (Verified 02/19/20 11:15) Skin Rash trimethoprim [From Bactrim] Allergy (Verified 02/19/20 11:15) Skin Rash acetaminophen [From Tylenol] Adverse Reaction (Intermediate, Verified 02/19/20 11:15) head fog amitriptyline Adverse Reaction (Intermediate, Verified 02/19/20 11:15) Agitation trazodone Adverse Reaction (Intermediate, Verified 02/19/20 11:15) Agitation diphenhydramine [From Benadryl] Adverse Reaction (Verified 02/19/20 11:15) Other (See Comment) Height 6 ft Weight 66.678 kg - Renal Dosing Renal Dosing: BUN 13 mg/dL (7-18) 02/19/20 11:55 Creatinine 1.05 mg/dL (0.70-1.30) 02/19/20 11:55 Medications needing adjustments: Reviewed (Crcl ~106.7 mL/min current meds okay) - Anticoagulation Anticoagulation: Hgb 16.1 g/dL (13.5-17.5) 02/19/20 11:55 Hct 47.9 % (40.0-50.0) 02/19/20 11:55 Plt Count 274 10^3/uL (130-400) 02/19/20 11:55 Creatinine 1.05 mg/dL (0.70-1.30) 02/19/20 11:55 DVT Prohphylaxis: N/A Therapeutic Anticoagulation: N/A - Opiate Usage Evaluate Pain Scale/Pains Meds: N/A - Relevant Labs Sodium 138 mmol/L (136-145) 02/19/20 11:55 Potassium 3.8 mmol/L (3.5-5.1) 02/19/20 11:55 Chloride 101 mmol/L (98-107) 02/19/20 11:55 Electrolytes, C-Reactive P, ESR: Reviewed - DM Control DM Control: Glucose 106 mg/dL (74-106) 02/19/20 11:55 Insulin Dosing: N/A - Heart Failure/[place] EF%, JA's, B-Blockers, Diuretics: N/A - BP Control BP Control: Blood Pressure 110/68 Blood Pressure 117/73 If elevated: N/A - Qtc Review If Elevated: N/A - IV to PO Switch IV Medications: Reviewed - Home Meds Home Med List reviewed: Reviewed Relevent Home Meds Not ordered & why?: home med ordered - Current meds Current Medication Order Review: Reviewed - Comments Comments/Follow Ups: Waiting for placement. Watch VS, labs and for med changes.
--- NOTE | 2020-02-20 17:26 | CMSP_ITS ---
- If Service Date Differs Date of service: 02/20/20 Time of Service: 17:27 Care Management Safety Plan VOLUNTARY FOR INPATIENT PSYCHIATRIC STABILIZATION. Patient is appropriate in all interactions since arriving at [facility]; Pt has demonstrated appropriate coping and communication skills, has articulated his needs and concerns and is fully engaged during staff interactions. Safety plan has been established with patient, and care team, to adhere to patient goals, identify restrictions based on behavioral status, address nutrition, and determine allowed personal belongings, tools for hygiene and personal care. Determine level of activity including ambulation, level of supervision, visitors, and determine privileges based on behaviors and level of engagement by pt. Huddle individually with CPSO, primary nurse, provider and [facility], review of safety plan. CM updated RN supervisor dimension warehouse. Referrals to [facility]. SAFETY PLAN: 1. Will remain on suicide precautions and in paper clothes. 2. Will remain in room under direct supervision of one-on-one staff at all times provided by CPSO, RESIDENT BUYER, ASSET RECOVERY SPECIALIST supervisor coin machine. 3. May have paper cups, plates, finger foods as well as a cardboard spoon with which to eat meals. 4. Follow [facility] Management of the Admitted Behavioral Health Patient policy. 5. Comfort wipes, or shower with appropriate supervision. 6. Skyler may have his deodorant, books, note pad, sketch pad, soft tip markers and playing cards. 7. Visitors: Skyler does not identify any support people at this time. 8. Activities: Soft tip markers, paper, books, cards, television if available, and other activities at nursing discretion. He enjoys talking to people and likes to draw. 8. With supervision. 9. Due to VOLUNTARY status, if patient wishes to leave [facility], the [facility] convention worker must be contacted to re-evaluate patient prior to patient exiting the building. If deemed appropriate for inpatient psychiatric care, safety plan will be established with patient, and care team, to adhere to patient goals, identify restrictions based on behavioral status, address nutrition, and determine allowed personal belongings, tools for hygiene and personal care. As well plan will determine level of activity including ambulation, level of supervision, visitors, and determine privileges based on level of acuity, behaviors and level of engagement by patient.
--- NOTE | 2020-02-20 17:31 | CMPROGNOTE_ITS ---
- If Service Date Differs Date of service: 02/20/20 Time of Service: 17:31 Care Management Progress Note S/O: CM met with Skyler at length, he is an intelligent young man able to carry on a conversation and describe insight into his current situation. Skyler lives in youth housing with a roommate through the [employer] program. He has been there less than a year. He describes his difficult relationship with his Mother and his Father and not feeling supportive throughout his life. Skyler has been in foster care in the past, he does have a therapist in the community. He is concerned that he may have ADHD, he states he has difficulty completing task and finishing projects. He describes his struggles throughout his school years which became much worse as he got older to the point of not finishing high school. Skyler struggles with relationships and finding others with common values. He is hopeful that if he can learn to control his thoughts he would like to be an artist and is interested in the abstract art. Early in the afternoon he was restless in the room and began doing push ups and chanting. He admits that there is not enough stimulation for him in the room. CM did request maintenance fix the television which is not currently working. CM reviewed the plan with Skyler and updates on bed status. Skyler is open and honest with this investment underwriter, he talks about his friend that by suicide and his feelings related to his friends . Skyler is polite, engaged and appropriate throughout the interaction with CM. He discusses his housing goals and feel that if he can have his own place and manage his symptoms he will be able to do what he enjoys including art, music and dance. A: Skyler is a 19 year old male admitted with SI and symptoms of depression P: Referrals pending at [facility]. CM reviewed the safety plan with Skyler and made requested changes after review with the care team. Skyler will be transported via credit assessment analyst at time of discharge. Disposition to be determined.
[2020-02-20 21:30] VITALS: BP 122/70; PULSE 63; RESP 17; TEMP 35.8; O2SAT 98
[2020-02-21] MEDS: busPIRone 5 MG TAB 10 MG PO (01:49)
[2020-02-21 08:35] VITALS: BP 97/60; PULSE 73; RESP 16; TEMP 36.7; O2SAT 98
--- NOTE | 2020-02-21 11:53 | PGE_ITS ---
Date of Service Date of service: 02/21/20 Time of Service: 11:53 Assessment and Plan Assessment and plan (1) Depressed mood: Start date: 02/21/20 Start time: 12:06 Status: Chronic Assessment and plan: Did request something for anxiety last night. He was given a dose of buspar. Not anxious at this time. He is not having active thoughts of SI/HI 1:1 patient observer Awaiting bed placement. (2) Homicidal ideation: Start date: 02/21/20 Start time: 12:07 Status: Acute Assessment and plan: As above Above case discussed with Dr. Wharton who is in agreement. Subjective Subjective Patient reports: other Interval history since last seen: Continues to have racing thoughts. Wants treatment for ADHD. Will defer for further treatment to for ADHD Exam Const General: cooperative and no acute distress Nutritional Appearance: thin Orientation: alert, awake and oriented x3 HENMT Head: normal to inspection, normocephalic and atraumatic Mouth: moist mucous membranes Eyes General: appearance normal, both eyes and all related structures Conjunctivae: conjunctivae normal Sclera: sclerae normal Cornea: corneas normal Pupils: PERRL EOM: EOM intact bilaterally Neck Neck: normal visual inspection, full ROM and no JVD Chest Chest: normal inspection of the chest Resp Effort & Inspection: normal respiratory effort and able to speak in complete sentences Auscultation: clear to auscultation bilaterally Cardio Jugular venous pressure: no JVD Rate: regular rate Rhythm: regular rhythm Heart Sounds: S1 normal and S2 normal GI Inspection: normal to inspection Palpation: soft and no hepatosplenomegaly General: deferred Back/Spine/Pelvis Back: no CVA tenderness Thoracic/Lumbar Spine: thoracic and lumbar spine normal to inspection Skin General skin exam: no rashes or lesions noted Neuro General: patient alert, patient awake and patient oriented x3 Extrem General: normal to inspection, full ROM and no clubbing, cyanosis or edema Psych Speech and Movement: speech and movement normal Mood: expansive Affect: animated Attitude: avoids eye contact Thought Process: illogical Thought Content: ideas of reference Insight: poor Judgment: poor Objective Objective Clinical Data: Vital Signs Temperature 35.8 C L 02/20/20 21:30 Temperature Source Tympanic 02/20/20 21:30 Pulse 63 02/20/20 21:30 Pulse Rhythm Regular 02/20/20 00:00 Respiratory Rate 17 02/20/20 21:30 Respiratory Effort Non-Labored 02/21/20 01:26 Respiratory Depth Normal 02/21/20 01:26 Respiratory Pattern Normal 02/21/20 01:26 Blood Pressure 122/70 02/20/20 21:30 Blood Pressure Position Sitting 02/19/20 11:08 Pulse Oximetry 98 02/20/20 21:30 Oxygen Delivery Method Room Air 02/20/20 21:30 Oxygen Flow Rate 0 02/20/20 21:30 Pain Level 0 02/20/20 21:30 Comment 02/19/20 11:08 Intake & Output 02/20/20 02/20/20 02/21/20 11:59 23:59 11:59 Intake Total 150 / 780 630 / 780 Balance 150 / 780 630 / 780 Intake: Oral 150 / 780 630 / 780 Laboratory Results WBC 7.25 10^3/uL (4.4-10.8) 02/19/20 11:55 RBC 5.08 10^6/uL (4.36-5.78) 02/19/20 11:55 Hgb 16.1 g/dL (13.5-17.5) 02/19/20 11:55 Hct 47.9 % (40.0-50.0) 02/19/20 11:55 MCV 94.3 fL (80-95) 02/19/20 11:55 MCH 31.7 pg (27.0-33.0) 02/19/20 11:55 MCHC 33.6 % (32.0-36.0) 02/19/20 11:55 RDW 11.9 % (11.8-14.1) 02/19/20 11:55 Plt Count 274 10^3/uL (130-400) 02/19/20 11:55 MPV 9.6 fL (8.0-11.0) 02/19/20 11:55 Immature Gran % 1.1 02/19/20 11:55 Neutrophils % 61.1 02/19/20 11:55 Lymphocytes % 27.0 02/19/20 11:55 Monocytes % 8.0 02/19/20 11:55 Eosinophils % 2.1 02/19/20 11:55 Basophils % 0.7 02/19/20 11:55 Nucleated RBC % 0 % 02/19/20 11:55 Absolute Neutrophils 4.43 10^3/uL (1.2-6.7) 02/19/20 11:55 Absolute Lymphocytes 1.96 10^3/uL (1.2-3.4) 02/19/20 11:55 Absolute Monocytes 0.58 10^3/uL (0.1-0.8) 02/19/20 11:55 Absolute Eosinophils 0.15 10^3/uL (0.0-0.7) 02/19/20 11:55 Absolute Basophils 0.05 10^3/uL (0.0-0.2) 02/19/20 11:55 Sodium 138 mmol/L (136-145) 02/19/20 11:55 Potassium 3.8 mmol/L (3.5-5.1) 02/19/20 11:55 Chloride 101 mmol/L (98-107) 02/19/20 11:55 Carbon Dioxide 27.9 mmol/L (21.0-32.0) 02/19/20 11:55 Anion Gap 9.1 mmol/L (3-11) 02/19/20 11:55 BUN 13 mg/dL (7-18) 02/19/20 11:55 Creatinine 1.05 mg/dL (0.70-1.30) 02/19/20 11:55 Estimated GFR/1.73 m2 >= 60.00 (mL/min/1.73m2) 02/19/20 11:55 Glucose 106 mg/dL (74-106) 02/19/20 11:55 Calcium 9.6 mg/dL (8.5-10.1) 02/19/20 11:55 Total Bilirubin 0.5 mg/dL (0.2-1.0) 02/19/20 11:55 AST 30 U/L (15-37) 02/19/20 11:55 ALT 61 U/L (16-63) 02/19/20 11:55 Alkaline Phosphatase 78 U/L (46-116) 02/19/20 11:55 Total Protein 7.8 g/dL (6.4-8.2) 02/19/20 11:55 Albumin 4.4 g/dL (3.4-5.0) 02/19/20 11:55 TSH 2.15 uIU/mL (0.52-4.13) 02/19/20 11:55 Urine Color Yellow (Yellow) 02/19/20 12:25 Urine Clarity Clear (Clear) 02/19/20 12:25 Urine pH 6.0 (5-8) 02/19/20 12:25 Ur Specific [place] 1.025 (1.005-1.025) 02/19/20 12:25 Urine Protein Negative mg/dL (Negative) 02/19/20 12:25 Urine Ketones Negative mg/dL (Negative) 02/19/20 12:25 Urine Blood Negative (Negative) 02/19/20 12:25 Urine Nitrite Negative (Negative) 02/19/20 12:25 Urine Bilirubin Negative (Negative) 02/19/20 12:25 Urine Urobilinogen 0.2 EU/dL (Up TO 0.2) 02/19/20 12:25 Ur Leukocyte Esterase Negative (Negative) 02/19/20 12:25 Urine Glucose Negative mg/dL (Negative) 02/19/20 12:25 Urine Opiates Screen Negative (Negative) 02/19/20 12:25 Urine Methadone Screen Negative (Negative) 02/19/20 12:25 Ur Barbiturates Screen Negative (Negative) 02/19/20 12:25 Ur Tricyclics Screen Negative (Negative) 02/19/20 12:25 Ur Amphetamines Screen Negative (Negative) 02/19/20 12:25 U Benzodiazepines Scrn Negative (Negative) 02/19/20 12:25 Urine Cocaine Screen Negative (Negative) 02/19/20 12:25 Ur THC Screen Positive (Negative) A 02/19/20 12:25 Ethyl Alcohol < 3.0 mg/dL (<3) 02/19/20 11:55 COVID-19 PCR Negative (Negative) 02/19/20 12:35 Nasopharyn COVID-19 PCR Not Applicable 02/19/20 12:35 Ref Test Perform Site [place] [facility] 02/19/20 12:35
--- NOTE | 2020-02-21 12:03 | MHPN_ITS ---
Date of service: 02/21/20 Time of Service: 12:03 Mental Health Crisis Note Presenting Issue How did you arrive at the ED and why did you come: Skyler arrived to the ER this past Saturday for SI and HI. Precipitating Factors Skyler reported that he has not been able to stay awake enough to think about SI or HI. There are no signs of delusions observed today. Disposition BEHAVIOR: Skyler has not been a behavior since being at the hospital but cooperative and respectful. He is asleep today when I arrive but wakes without issue when I arrive. He stated that circadian rhythm is way off since being here. He is pleasant and answers questions although answers are short without a lot of detail. EYE CONTACT: Eye contact is not good today. MOOD: Skyler presents as depressed and low energy. AFFECT: Skyler's affect appears depressed and tired. APPETITE: Skyler reports that he is eating. SLEEP(trouble falling/staying asleep: Skyler reports that his circadian rhythm id off and he feels he can not get enough sleep. Plan We will continue to seek placement for Skyler. He continues to be voluntary. Signature Clinician's Name/Title: Anabel Erickson MS, [facility] Emergency Services Clinician
--- NOTE | 2020-02-21 12:56 | PDOC.CMSAFE ---
- If Service Date Differs Date of service: 02/21/20 Time of Service: 12:56 Care Management Safety Plan VOLUNTARY FOR INPATIENT PSYCHIATRIC STABILIZATION. Patient is appropriate in all interactions since arriving at [facility]; Pt has demonstrated appropriate coping and communication skills, has articulated his needs and concerns and is fully engaged during staff interactions. Safety plan has been established with patient, and care team, to adhere to patient goals, identify restrictions based on behavioral status, address nutrition, and determine allowed personal belongings, tools for hygiene and personal care. Determine level of activity including ambulation, level of supervision, visitors, and determine privileges based on behaviors and level of engagement by pt. Referrals to [facility]. SAFETY PLAN: 1. Will remain on suicide precautions and in paper clothes. 2. Will remain in room under direct supervision of one-on-one staff at all times provided by CPSO, SEAM RUBBING MACHINE OPERATOR, PREPARATOR oral and maxillofacial surgery resident. 3. May have paper cups, plates, finger foods as well as a cardboard spoon with which to eat meals. 4. Follow [facility] Management of the Admitted Behavioral Health Patient policy. 5. Comfort wipes, or shower with appropriate supervision. 6. Skyler may have his deodorant, books, note pad, sketch pad, soft tip markers and playing cards. 7. Visitors: Skyler does not identify any support people at this time. 8. Activities: Soft tip markers, paper, books, cards, television if available, and other activities at nursing discretion. He enjoys talking to people and likes to draw. 8. With supervision. 9. Due to VOLUNTARY status, if patient wishes to leave [facility], the [facility] drug abuse social worker must be contacted to re-evaluate patient prior to patient exiting the building. If deemed appropriate for inpatient psychiatric care, safety plan will be established with patient, and care team, to adhere to patient goals, identify restrictions based on behavioral status, address nutrition, and determine allowed personal belongings, tools for hygiene and personal care. As well plan will determine level of activity including ambulation, level of supervision, visitors, and determine privileges based on level of acuity, behaviors and level of engagement by patient.
--- NOTE | 2020-02-21 14:52 | PDOC.CMPRO ---
- If Service Date Differs Date of service: 02/21/20 Time of Service: 14:52 Care Management Progress Note S/O: No change in status today [place] continues to review referral as well as [place]. CM faxed updates to [facility] including updated COVID results. Skyler has been sleeping a lot today he did meet with [facility] and remains voluntary at this time. A: Skyler is a 19 year old male admitted with SI and symptoms of depression P: [facility] [place] [facility] CM reviewed the safety plan with Skyler and made requested changes after review with the care team. Skyler will be transported via step down specialist at time of discharge. Disposition to be determined.
[2020-02-21 15:57] VITALS: BP 116/70; PULSE 74; RESP 18; TEMP 37; O2SAT 99
--- NOTE | 2020-02-21 16:04 | W.NUTRFU ---
Date of service: 02/21/20 Time of Service: 16:04 Nutritional Follow up NOTE: Met with Skyler today after reviewing in chart that he has hx of eating disorder. Skyler admitted voluntarily for mental health issues, awaiting transfer to [place]. Estimated needs: [id number] kcal, 70-75 g protein. BMI wnl, on lower end. Skyler reports he follows a ketogenic diet and that he suffering from binge eating disorder. Reviewed nutrient needs and encouraged that he consider a less restrictive eating pattern to provide 100% nutrient and explained the relationship between restrictive diets/binging. Explained how ketogenic diet are not recommended, especially for thin individuals as himself. Skyler states he has more clarity when he avoids carbohydrates, however, tends to have episodes of binging on carbohydrates. At this time, Cherri did not want more information on adequate nutrient needs for his age, weight. Will provide meal preferences and will provide carbohydrates in forms of milk, cottage cheese, yogurt, fruit. Following regular meal plan with 100% meal completion. will continue to follow. Time Spent in Nutritional Counseling and Treatment: 20 min face to face
[2020-02-21] MEDS: hydrOXYzine HCL 50 MG TAB PO (18:20)
[2020-02-21 20:57] VITALS: BP 118/75; PULSE 79; RESP 16; TEMP 36.5; O2SAT 95
[2020-02-22] MEDS: busPIRone 5 MG TAB 20 MG PO (00:42)
[2020-02-22 07:37] VITALS: BP 118/57; PULSE 57; RESP 17; TEMP 36.8; O2SAT 96
--- NOTE | 2020-02-22 11:18 | PGE_ITS ---
Date of Service Date of service: 02/22/20 Time of Service: 11:33 Assessment and Plan Assessment and plan (1) Depressed mood: Start date: 02/22/20 Start time: 11:35 Status: Chronic Assessment and plan: He is not having active thoughts of SI/HI 1:1 patient observer Awaiting bed placement. (2) Homicidal ideation: Start date: 02/22/20 Start time: 11:36 Status: Acute Assessment and plan: As above Above case discussed with Dr. Wharton who is in agreement. Subjective Subjective Patient reports: no new complaints Interval history since last seen: Had an outburst last night threw food on floor. No outbursts today cooperative. Continues to await placement. 1:1 patient observer. Exam Const General: cooperative and no acute distress Nutritional Appearance: thin Orientation: alert, awake and oriented x3 HENMT Head: normal to inspection, normocephalic and atraumatic Mouth: moist mucous membranes Eyes General: appearance normal, both eyes and all related structures Conjunctivae: conjunctivae normal Sclera: sclerae normal Cornea: corneas normal Pupils: PERRL EOM: EOM intact bilaterally Neck Neck: normal visual inspection, full ROM and no JVD Chest Chest: normal inspection of the chest Resp Effort & Inspection: normal respiratory effort and able to speak in complete sentences Auscultation: clear to auscultation bilaterally Cardio Jugular venous pressure: no JVD Rate: regular rate Rhythm: regular rhythm Heart Sounds: S1 normal and S2 normal GI Inspection: normal to inspection Palpation: soft and no hepatosplenomegaly General: deferred Back/Spine/Pelvis Back: no CVA tenderness Thoracic/Lumbar Spine: thoracic and lumbar spine normal to inspection Skin General skin exam: no rashes or lesions noted Neuro General: patient alert, patient awake and patient oriented x3 Extrem General: normal to inspection, full ROM and no clubbing, cyanosis or edema Psych Speech and Movement: speech and movement normal Mood: expansive Affect: animated Attitude: avoids eye contact Thought Process: illogical Thought Content: ideas of reference Insight: poor Judgment: poor Objective Objective Clinical Data: Vital Signs Temperature 36.8 C 02/22/20 07:37 Temperature Source Temporal Artery Scan 02/22/20 07:37 Pulse 57 L 02/22/20 07:37 Pulse Rhythm Regular 02/20/20 00:00 Respiratory Rate 17 02/22/20 07:37 Respiratory Effort Non-Labored 02/22/20 02:26 Respiratory Depth Normal 02/22/20 02:26 Respiratory Pattern Normal 02/22/20 02:26 Blood Pressure 118/57 L 02/22/20 07:37 Blood Pressure Position Sitting 02/19/20 11:08 Pulse Oximetry 96 02/22/20 07:37 Oxygen Delivery Method Room Air 02/22/20 07:37 Oxygen Flow Rate 0 02/22/20 07:37 Pain Level 0 02/22/20 07:37 Comment 02/19/20 11:08 Intake & Output 02/21/20 02/21/20 02/22/20 11:59 23:59 11:59 Other: Voiding Methods Toilet Laboratory Results WBC 7.25 10^3/uL (4.4-10.8) 02/19/20 11:55 RBC 5.08 10^6/uL (4.36-5.78) 02/19/20 11:55 Hgb 16.1 g/dL (13.5-17.5) 02/19/20 11:55 Hct 47.9 % (40.0-50.0) 02/19/20 11:55 MCV 94.3 fL (80-95) 02/19/20 11:55 MCH 31.7 pg (27.0-33.0) 02/19/20 11:55 MCHC 33.6 % (32.0-36.0) 02/19/20 11:55 RDW 11.9 % (11.8-14.1) 02/19/20 11:55 Plt Count 274 10^3/uL (130-400) 02/19/20 11:55 MPV 9.6 fL (8.0-11.0) 02/19/20 11:55 Immature Gran % 1.1 02/19/20 11:55 Neutrophils % 61.1 02/19/20 11:55 Lymphocytes % 27.0 02/19/20 11:55 Monocytes % 8.0 02/19/20 11:55 Eosinophils % 2.1 02/19/20 11:55 Basophils % 0.7 02/19/20 11:55 Nucleated RBC % 0 % 02/19/20 11:55 Absolute Neutrophils 4.43 10^3/uL (1.2-6.7) 02/19/20 11:55 Absolute Lymphocytes 1.96 10^3/uL (1.2-3.4) 02/19/20 11:55 Absolute Monocytes 0.58 10^3/uL (0.1-0.8) 02/19/20 11:55 Absolute Eosinophils 0.15 10^3/uL (0.0-0.7) 02/19/20 11:55 Absolute Basophils 0.05 10^3/uL (0.0-0.2) 02/19/20 11:55 Sodium 138 mmol/L (136-145) 02/19/20 11:55 Potassium 3.8 mmol/L (3.5-5.1) 02/19/20 11:55 Chloride 101 mmol/L (98-107) 02/19/20 11:55 Carbon Dioxide 27.9 mmol/L (21.0-32.0) 02/19/20 11:55 Anion Gap 9.1 mmol/L (3-11) 02/19/20 11:55 BUN 13 mg/dL (7-18) 02/19/20 11:55 Creatinine 1.05 mg/dL (0.70-1.30) 02/19/20 11:55 Estimated GFR/1.73 m2 >= 60.00 (mL/min/1.73m2) 02/19/20 11:55 Glucose 106 mg/dL (74-106) 02/19/20 11:55 Calcium 9.6 mg/dL (8.5-10.1) 02/19/20 11:55 Total Bilirubin 0.5 mg/dL (0.2-1.0) 02/19/20 11:55 AST 30 U/L (15-37) 02/19/20 11:55 ALT 61 U/L (16-63) 02/19/20 11:55 Alkaline Phosphatase 78 U/L (46-116) 02/19/20 11:55 Total Protein 7.8 g/dL (6.4-8.2) 02/19/20 11:55 Albumin 4.4 g/dL (3.4-5.0) 02/19/20 11:55 TSH 2.15 uIU/mL (0.52-4.13) 02/19/20 11:55 Urine Color Yellow (Yellow) 02/19/20 12:25 Urine Clarity Clear (Clear) 02/19/20 12:25 Urine pH 6.0 (5-8) 02/19/20 12:25 Ur Specific [place] 1.025 (1.005-1.025) 02/19/20 12:25 Urine Protein Negative mg/dL (Negative) 02/19/20 12:25 Urine Ketones Negative mg/dL (Negative) 02/19/20 12:25 Urine Blood Negative (Negative) 02/19/20 12:25 Urine Nitrite Negative (Negative) 02/19/20 12:25 Urine Bilirubin Negative (Negative) 02/19/20 12:25 Urine Urobilinogen 0.2 EU/dL (Up TO 0.2) 02/19/20 12:25 Ur Leukocyte Esterase Negative (Negative) 02/19/20 12:25 Urine Glucose Negative mg/dL (Negative) 02/19/20 12:25 Urine Opiates Screen Negative (Negative) 02/19/20 12:25 Urine Methadone Screen Negative (Negative) 02/19/20 12:25 Ur Barbiturates Screen Negative (Negative) 02/19/20 12:25 Ur Tricyclics Screen Negative (Negative) 02/19/20 12:25 Ur Amphetamines Screen Negative (Negative) 02/19/20 12:25 U Benzodiazepines Scrn Negative (Negative) 02/19/20 12:25 Urine Cocaine Screen Negative (Negative) 02/19/20 12:25 Ur THC Screen Positive (Negative) A 02/19/20 12:25 Ethyl Alcohol < 3.0 mg/dL (<3) 02/19/20 11:55 COVID-19 PCR Negative (Negative) 02/19/20 12:35 Nasopharyn COVID-19 PCR Not Applicable 02/19/20 12:35 Ref Test Perform Site [place] [facility] 02/19/20 12:35
--- NOTE | 2020-02-22 11:37 | W.INMHPGNOTE ---
Date of service: 02/22/20 Time of Service: 11:38 Mental Health Crisis Note Presenting Issue How did you arrive at the ED and why did you come: Skyler brought himself to the ER Saturday wiht persistent thoughts of SI and HI. Precipitating Factors Skyler reported that his thoughts are less this am but states that last night they were overwhelming. He does not seem to show signs of delusions. Disposition BEHAVIOR: Skyler has been cooperative and engaged more so today than in day's past. He has showered and communicates much more effectively. EYE CONTACT: Skyler makes good eye contact. MOOD: Skyler still presents slightly depressed. AFFECT: Skyler's affect is a little more appropriate today than it has been in the last two days. APPETITE: Skyler reports that he does not typically eat in the am and tends to eat later in the evenings as a norm so the schedule for meals at the hospital are not his typical cycle. SLEEP(trouble falling/staying asleep: Skyler reported that his circadian rhythm seems to be improving. Plan Skyler is still seeking a voluntary admission to help him figure out what is going on and get him back on track. Signature Clinician's Name/Title: Anabel Erickson MS, [facility] Emergency Services Clinician
[2020-02-22 16:12] VITALS: BP 117/70; PULSE 78; RESP 17; TEMP 37; O2SAT 99
--- NOTE | 2020-02-22 17:00 | PDOC.CMSAFE ---
- If Service Date Differs Date of service: 02/22/20 Time of Service: 17:00 Care Management Safety Plan VOLUNTARY FOR INPATIENT PSYCHIATRIC STABILIZATION. Patient is appropriate in all interactions since arriving at [facility]; Pt has demonstrated appropriate coping and communication skills, has articulated his needs and concerns and is fully engaged during staff interactions. Safety plan has been established with patient, and care team, to adhere to patient goals, identify restrictions based on behavioral status, address nutrition, and determine allowed personal belongings, tools for hygiene and personal care. Determine level of activity including ambulation, level of supervision, visitors, and determine privileges based on behaviors and level of engagement by pt. Referrals to [place] and [facility] [place]. [facility] has no beds and [facility] has declined Skyler as they do not feel he meets [facility] level of care based on clinicals sent. SAFETY PLAN: 1. Will remain on suicide precautions and in paper clothes. 2. Will remain in room under direct supervision of one-on-one staff at all times provided by CPSO, CARE PROGRAM RESIDENT, BRIQUETTE MOLDER consumer studies professor. 3. May have paper cups, plates, finger foods as well as a cardboard spoon with which to eat meals. 4. Follow [facility] Management of the Admitted Behavioral Health Patient policy. 5. Comfort wipes, or shower with appropriate supervision. 6. Skyler may have his deodorant, books, note pad, sketch pad, soft tip markers and playing cards. 7. Visitors: Skyler does not identify any support people at this time. 8. Activities: Soft tip markers, paper, books, cards, television if available, and other activities at nursing discretion. He enjoys talking to people and likes to draw. 8. With supervision. 9. Due to VOLUNTARY status, if patient wishes to leave [facility], the [facility] hot worker must be contacted to re-evaluate patient prior to patient exiting the building. If deemed appropriate for inpatient psychiatric care, safety plan will be established with patient, and care team, to adhere to patient goals, identify restrictions based on behavioral status, address nutrition, and determine allowed personal belongings, tools for hygiene and personal care. As well plan will determine level of activity including ambulation, level of supervision, visitors, and determine privileges based on level of acuity, behaviors and level of engagement by patient. cc:
--- NOTE | 2020-02-22 17:02 | CMPROGNOTE_ITS ---
- If Service Date Differs Date of service: 02/22/20 Time of Service: 17:02 Care Management Progress Note S/O: [facility] continues to review referral but has no beds and [facility] has determined that Skyler does not meet [facility] level of care. Skyler met with [facility] and remains voluntary at this time. This afternoon met with Skyler and he shared a lot of information about his feelings of poor self worth and the high expectations his parents have had for him. He describes his thoughts as being chaotic and his emotional pain as severe. He denies depression but states that he has been suicidal since age 13. Skyler also shared the fact that his best friend committed suicide on 02/25/17 and cited the fact that no one listened to him. He also stated that he feels that no one takes his SI seriously because he presents so well. He admitted that he has no support in the community. It appears that he does not have a close relationship with his parents or step sister and states he has no friends with whom he can talk. He identified that he feels he needs intensive psychotherapy to get at the root of his emotional issues and feelings. A: Skyler is a 19 year old male admitted with SI and symptoms of depression P: VOLUNTARY FOR INPATIENT PSYCHIATRIC STABILIZATION. Patient is appropriate in all interactions since arriving at [facility]; Pt has demonstrated appropriate coping and communication skills, has articulated his needs and concerns and is fully engaged during staff interactions. Safety plan has been established with patient, and care team, to adhere to patient goals, identify restrictions based on behavioral status, address nutrition, and determine allowed personal belongings, tools for hygiene and personal care. Determine level of activity including ambulation, level of supervision, visitors, and determine privileges based on behaviors and level of engagement by pt. Referrals to [facility] and [facility] [place]. [facility] has no beds and [facility] has declined Skyler as they do not feel he meets [facility] level of care based on clinicals sent. SAFETY PLAN: 1. Will remain on suicide precautions and in paper clothes. 2. Will remain in room under direct supervision of one-on-one staff at all times provided by CPSO, RUG CUTTER HELPER, FEDERAL JUDGE painter decorator. 3. May have paper cups, plates, finger foods as well as a cardboard spoon with which to eat meals. 4. Follow [facility] Management of the Admitted Behavioral Health Patient policy. 5. Comfort wipes, or shower with appropriate supervision. 6. Skyler may have his deodorant, books, note pad, sketch pad, soft tip markers and playing cards. 7. Visitors: Skyler does not identify any support people at this time. 8. Activities: Soft tip markers, paper, books, cards, television if available, and other activities at nursing discretion. He enjoys talking to people and likes to draw. 8. With supervision. 9. Due to VOLUNTARY status, if patient wishes to leave [facility], the [facility] repack room worker must be contacted to re-evaluate patient prior to patient exiting the building. If deemed appropriate for inpatient psychiatric care, safety plan will be established with patient, and care team, to adhere to patient goals, identify restrictions based on behavioral status, address nutrition, and determine allowed personal belongings, tools for hygiene and personal care. As well plan will determine level of activity including ambulation, level of supervision, visitors, and determine privileges based on level of acuity, behaviors and level of engagement by patient.
[2020-02-22] MEDS: hydrOXYzine HCL 50 MG TAB PO (20:23)
[2020-02-22 20:29] VITALS: BP 117/75; PULSE 79; RESP 16; TEMP 37.1; O2SAT 97
[2020-02-22] MEDS: Nicotine 2 MG GUM CH (20:44)
[2020-02-23 08:25] VITALS: BP 100/63; PULSE 69; RESP 18; TEMP 36.4; O2SAT 100
--- NOTE | 2020-02-23 10:09 | CMPROGNOTE_ITS ---
- If Service Date Differs Date of service: 02/23/20 Time of Service: 10:09 Care Management Progress Note S/O: A: Skyler is a 19 year old male admitted with SI and symptoms of depression P: Referrals pending at [facility]. CM reviewed the safety plan with Skyler and made requested changes after review with the care team. Skyler will be transported via transmitter engineer in charge at time of discharge. Disposition to be determined.
--- NOTE | 2020-02-23 11:54 | W.PM.DS.N ---
Date of service: 02/23/20 Time of Service: 11:54 DS: Diagnosis Discharge Diagnosis (1) Depressed mood: Status: Chronic (2) Homicidal ideation: Status: Acute Discharge Plan Disposition Patient Disposition: [facility] Condition: Poor Discharge Details Chief Complaint: PsychEval Clinical Impression: Suicidal ideation, Homicidal ideation Reason For Visit: PSYCH ADMISSION Admit Date/Time: 02/20/20 13:55 Admit Provider: Heather Ta Attending Provider: Heather Ta Primary Care Provider: Laron Smith ED Provider: Neo Coles Hospital Course Hospital Course: This is a 19-year-old male patient with a past medical history of substance abuse anxiety and depression suicidal ideation with previous inpatient psychiatric admissions who presents to the emergency department with thoughts of suicide and homicide. He admits to using ketamine and LSD last week. He smokes marijuana and cigarettes daily. He is not currently under psychiatric care but has been in the past. His medical screening in the emergency department was unremarkable urine tox did show positive for THC. Mental health has been consulted and initially the plan was for him to discharge home with an outpatient follow-up appointment but he became disruptive when he realized he was not going to be treated inpatient. His COVID screening was negative. Referrals have been placed and [facility] was [facility]. He has remained medically stable and had not been a behavioral issue up until right before discharge. He now is calm and cooperative and in agreement with the transfer. discharge plan discussed with DR Wharton. Home Meds and New Rx's Prescriptions: Continued omeprazole 20 mg capsule,delayed release(DR/EC) 20 mg PO DAILY Qty: 90 RF: 2 Discharge Instructions Instructions: Depression (DC), Suicide Prevention (DC) Additional Instructions: Continue safety plan as discussed. Keep scheduled follow up appointment. Call sooner for worsening symptoms. Referrals: Davie Martinez [ NON-[facility] STAFF PHYSICIAN] - 03/01/20 10:30 am Activity:: Activity as Tolerated Equipment/Supplies:: No Equipment Needed Diet:: As Tolerated Discharge Orders Discharge Orders: Discharge Order (Routine); Ordered 02/23/20 Ordered By: Bridgette Ramirez DS: Summary Status at Discharge Functional status at discharge: independent ambulation Overall status at discharge: patient is not back to baseline Mental Status: other (agitated) Speech and Movement: agitated and pressured speech Mood: labile mood, angry, irritable mood and other (agitated) Affect: hostile Exam Const General: in distress other (Agitated, throwing lunch tray and bedding in the room. ), anxious and frail appearing Nutritional Appearance: thin Orientation: alert and awake Limitations: behavioral limitations HENMT Head: normal to inspection, normocephalic and atraumatic Mouth: oral mucosae normal Resp Effort & Inspection: normal respiratory effort Cardio Jugular venous pressure: other Other: Appears pink dry and well perfused Neuro General: moves all extremities Extrem General: normal to inspection, full ROM and no pedal edema Psych Mental Status: other (agitated) Speech and Movement: agitated and pressured speech Mood: labile mood, angry, irritable mood and other (agitated) Affect: hostile DS: Data Vitals/I&O Vitals and I&O: Vital Signs Temperature 36.4 C L 02/23/20 08:25 Temperature Source Tympanic 02/23/20 08:25 Pulse 69 02/23/20 08:25 Pulse Rhythm Regular 02/20/20 00:00 Respiratory Rate 18 02/23/20 08:25 Respiratory Effort Non-Labored 02/22/20 20:48 Respiratory Depth Normal 02/22/20 20:48 Respiratory Pattern Normal 02/22/20 20:48 Blood Pressure 100/63 02/23/20 08:25 Blood Pressure Position Sitting 02/19/20 11:08 Pulse Oximetry 100 02/23/20 08:25 Oxygen Delivery Method Room Air 02/23/20 08:25 Oxygen Flow Rate 0 02/23/20 08:25 Pain Level 0 02/23/20 08:25 Comment 02/23/20 09:06 Intake & Output 02/22/20 02/22/20 02/23/20 11:59 23:59 11:59 Other: Comment independant Voiding Methods Toilet [facility] Medical History (Updated 02/19/20 @ 15:11 by Gypsy Boyce NP) Acne (Inactive) Anxiety (Inactive) Conduct disorder (Inactive) Depressed mood (Chronic) Drug abuse (Inactive) Encounter to establish care (Inactive) Poor appetite (Inactive) Primary insomnia (Inactive) Suicidal ideation (Inactive) Surgical History S/P appendectomy (Acute ~06/17/10) Family History Father Substance abuse Depression Mother Anxiety Sister Anxiety Depression Social History Smoking/Tobacco Use Status: Current-Occasional Tobacco: How many years used: 1 Alcohol Intake: current Alcohol Intake frequency: a few times a month Drug use: Never Substance use type: marijuana and hallucinogens Details: Pt has used various illicit hallucinigens in the past but denies using them currently Adopted: No Caregiver/Support person: No Foster care: No Household members: none Housing: other Do you need help understanding health information?: Rarely current occupation: UnEmployed Sexually active: Yes Do you think of yourself as: straight/heterosexual Current gender identity: male Do you feel safe at home: No Do you feel safe in your relationship?: No
--- NOTE | 2020-02-23 14:07 | NUR.NOTE ---
report called to F[facility]. Nursing Note:
--- NOTE | 2020-02-23 15:19 | CMDISCH_ITS ---
- If Service Date Differs Date of service: 02/23/20 Time of Service: 14:00 LACE Index Scoring Tool - Questions: Length of Stay (in days): 4 - 6 Acuity (Admit via E.D.?): Yes E.D. Visits: 1 - Answers: Total Score: 8 Risk of Readmission: Low Risk Care Management Discharge Reason for Hospitalization: Psychiatric placement for SI Discharge Plan: Skyler is being discharged to [facility] by [employer] Sur[employer] Cal[employer]. [facility] was told the patient agreed to safety plan and return home. However when CM met with Skyler he did not know he was being discharged home and became upset. When CM left the room Skyler began yelling and throwing his food and bedding around the room. Skyler yells I am going to fucking kill myself. a code tramaine was called [facility]MO ws able to desculate the patient and called mental health. Per mental health patient was not told during assessment that he would be going home with a safety plan. CM requested mental health do another assessment, contacted [facility] and confirmed that patient still needed a psychiatric bed and is ready for transfer. [facility] agreed to take the patient in transfer. Patient/Family Education Needs: Discharge information, transfer and education realted to transfer. Services Needed at Discharge: Psychiatric Facility, Transportation - MH Services (Omit if N/A) Current MH Services: Psychiatric Inp
[2020-02-24 08:30] LABS: COVID-19 RT-PCR UVMMC Result Negative (Negative)
== END 2020-02-23 13:48 | disposition short-term general hospital (02) | DRG 881 ==
LOC: ER 13:42 → MS 13:57
PROVIDERS: Nurse Practitioner Acute Care; Admitting Provider Internal Medicine; Emergency Provider Physician Assistant; PCP Family Medicine; Visit Provider Internal Medicine
DX: F32.9 Major depressive disorder, single episode, unspecified (principal); R45.851 Suicidal ideations; R45.850 Homicidal ideations; Z11.59 Encounter for screening for other viral diseases; F41.9 Anxiety disorder, unspecified; F91.9 Conduct disorder, unspecified; F51.01 Primary insomnia; F19.10 Other psychoactive substance abuse, uncomplicated
CPT/HCPCS: 36415; 80053; 80307; 99220; 99233; 99239; 99285; U0003; 80320; 81003; 84443; 85025; 99284; G0378; J3490

== ENCOUNTER 2021-01-12 19:25 | Emergency (ER) | payer MEDICAID, SELFPAY ==
[2021-01-12 19:27] VITALS: BP 150/79; PULSE 107; RESP 24; TEMP 36.6; O2SAT 98
[2021-01-12 20:02] LABS: Abs Immature Grans 0.03 10^3/uL (0.0-0.06); Absolute Basophil Count 0.05 10^3/uL (0.0-0.2); Absolute Eosinophil Count 0.07 10^3/uL (0.0-0.7); Absolute Lymphocyte Count 2.43 10^3/uL (1.2-3.4); Absolute Monocyte Count 0.72 10^3/uL (0.1-0.8); Absolute Neutrophil Count 6.24 10^3/uL (1.2-6.7); Basophils % 0.5; Eosinophils % 0.7; HCT 44.1 % (40.0-50.0); HGB 14.7 g/dL (13.5-17.5); Immature Grans % 0.3; Lymphocytes % 25.5; MCH 31.1 pg (27.0-33.0); MCHC 33.3 % (32.0-36.0); MCV 93.2 fL (80-95); MPV 9.6 fL (8.0-11.0); Monocytes % 7.5; Neutrophils % 65.5; Nucleated RBC 0 %; Platelet Count 301 10^3/uL (130-400); RBC 4.73 10^6/uL (4.36-5.78); RDW 11.9 % (11.8-14.1); RDW-SD 41.2 fL; WBC 9.54 10^3/uL (4.4-10.8)
[2021-01-12 20:20] LABS: ALT 19 U/L (16-63); AST 10 U/L (15-37); Albumin 4.6 g/dL (3.4-5.0); Alkaline Phosphatase 72 U/L (46-116); Anion Gap 11.1 mmol/L (3-11); BUN 15 mg/dL (7-18); Bilirubin, Total 0.4 mg/dL (0.2-1.0); CO2 26.9 mmol/L (21.0-32.0); CREATININE 0.9 mg/dL (0.70-1.30); Calcium 9.1 mg/dL (8.5-10.1); Chloride 105 mmol/L (98-107); Glucose 101 mg/dL (74-106); Potassium 3.6 mmol/L (3.5-5.1); Sodium 143 mmol/L (136-145); TSH (W/Ref FT4) 0.54 uIU/mL (0.36-3.74); Total Protein 7.6 g/dL (6.4-8.2)
[2021-01-12 20:32] LABS: ETHANOL BLOOD < 3.0 mg/dL (<3)
[2021-01-12 20:33] LABS: Salicylate < 2.8 mg/dL (<2.8)
[2021-01-12 20:41] LABS: Acetaminophen < 2 ug/mL (10-30)
--- NOTE | 2021-01-12 20:44 | ED.GENADUL_ITS ---
Discharge Plan Disposition Patient Disposition: [facility] Condition: Serious Discharge Details Clinical Impression: Bipolar disorder with severe hayder Primary Care Provider: Laron Smith ED Provider: Marty Alves Home Meds and New Rx's Prescriptions: No Action quetiapine 25 mg tablet 25 mg PO QHS Qty: 60 RF: 1 gabapentin 600 mg tablet 600 mg PO TID RF: 0 trazodone 50 mg tablet 50 mg PO HS RF: 0 lamotrigine [Lamictal] 100 mg tablet 100 mg PO BID RF: 0 Discharge Data Discharge Date/Time-TO BE ENTERED AT DEPARTURE: 01/17/21 11:42 Medical Decision Making <JOHNATHAN Acosta - Last Filed: 01/16/21 09:43> This is a 20-year-old male brought to the ER via local law enforcement on a warrant. Patient has no acute medical concerns or complaints. He admits to marijuana use but denies any drugs or alcohol. Patient appears delusional, paranoid, tangential thinking. HPI and examination are limited secondary to his presentation. He is willing to let us obtain laboratory values. I will place a care plan, mental health consultation, CPSO, and obtain laboratory values for mental health placement. Mental health evaluation has taken place, please see their note. They are requ esting that he be an involuntary hold and they will begin placement search. Laboratory values do not reveal any obvious emergent process, pending drug screen and urinalysis. Patient remains talkative in exam room 9 but is cooperative. Offered dinner, only ate a small amount. Requesting a nicotine lozenge, ordered 2 mg. It is now 10 PM, patient is awake, pressured speech, shows no signs of slowing down, tiredness, etc. Plan is to provide the patient with 10 p.o. Zyprexa. Patient initially declined any oral medication, only wants a nicotine lozenge Medical Records Medical records reviewed: Yes I reviewed the patient's medical records. Lab Data Lab results reviewed: Yes I reviewed the patient's lab results. Labs: Laboratory Tests Range/Units 01/12/21 01/12/21 01/12/21 19:55 19:55 19:55 WBC (4.4-10.8) 10^3/uL 9.54 RBC (4.36-5.78) 10^6/uL 4.73 Hgb (13.5-17.5) g/dL 14.7 Hct (40.0-50.0) % 44.1 MCV (80-95) fL 93.2 MCH (27.0-33.0) pg 31.1 MCHC (32.0-36.0) % 33.3 RDW (11.8-14.1) % 11.9 Plt Count (130-400) 10^3/uL 301 MPV (8.0-11.0) fL 9.6 Immature Gran % 0.3 Neutrophils % 65.5 Lymphocytes % 25.5 Monocytes % 7.5 Eosinophils % 0.7 Basophils % 0.5 Nucleated RBC % % 0 Absolute Neutrophils (1.2-6.7) 10^3/uL 6.24 Absolute Lymphocytes (1.2-3.4) 10^3/uL 2.43 Absolute Monocytes (0.1-0.8) 10^3/uL 0.72 Absolute Eosinophils (0.0-0.7) 10^3/uL 0.07 Absolute Basophils (0.0-0.2) 10^3/uL 0.05 Sodium (136-145) mmol/L 143 Potassium (3.5-5.1) mmol/L 3.6 Chloride (98-107) mmol/L 105 Carbon Dioxide (21.0-32.0) mmol/L 26.9 Anion Gap (3-11) mmol/L 11.1 H BUN (7-18) mg/dL 15 Creatinine (0.70-1.30) mg/dL 0.9 Estimated GFR/1.73 m2 (mL/min/1.73m2) >= 60.00 Glucose (74-106) mg/dL 101 Calcium (8.5-10.1) mg/dL 9.1 Total Bilirubin (0.2-1.0) mg/dL 0.4 AST (15-37) U/L 10 L ALT (16-63) U/L 19 Alkaline Phosphatase (46-116) U/L 72 Total Protein (6.4-8.2) g/dL 7.6 Albumin (3.4-5.0) g/dL 4.6 TSH (0.36-3.74) uIU/mL 0.54 Salicylates (<2.8) mg/dL < 2.8 Acetaminophen (10-30) ug/mL < 2 Ethyl Alcohol (<3) mg/dL < 3.0 COVID-19 Source Range/Units 01/12/21 20:35 WBC (4.4-10.8) 10^3/uL RBC (4.36-5.78) 10^6/uL Hgb (13.5-17.5) g/dL Hct (40.0-50.0) % MCV (80-95) fL MCH (27.0-33.0) pg MCHC (32.0-36.0) % RDW (11.8-14.1) % Plt Count (130-400) 10^3/uL MPV (8.0-11.0) fL Immature Gran % Neutrophils % Lymphocytes % Monocytes % Eosinophils % Basophils % Nucleated RBC % % Absolute Neutrophils (1.2-6.7) 10^3/uL Absolute Lymphocytes (1.2-3.4) 10^3/uL Absolute Monocytes (0.1-0.8) 10^3/uL Absolute Eosinophils (0.0-0.7) 10^3/uL Absolute Basophils (0.0-0.2) 10^3/uL Sodium (136-145) mmol/L Potassium (3.5-5.1) mmol/L Chloride (98-107) mmol/L Carbon Dioxide (21.0-32.0) mmol/L Anion Gap (3-11) mmol/L BUN (7-18) mg/dL Creatinine (0.70-1.30) mg/dL Estimated GFR/1.73 m2 (mL/min/1.73m2) Glucose (74-106) mg/dL Calcium (8.5-10.1) mg/dL Total Bilirubin (0.2-1.0) mg/dL AST (15-37) U/L ALT (16-63) U/L Alkaline Phosphatase (46-116) U/L Total Protein (6.4-8.2) g/dL Albumin (3.4-5.0) g/dL TSH (0.36-3.74) uIU/mL Salicylates (<2.8) mg/dL Acetaminophen (10-30) ug/mL Ethyl Alcohol (<3) mg/dL COVID-19 Source Nasal/Nares <Lillie Franco DO - Last Filed: 01/14/21 12:06> 01/13/21 0730 --please see previous providers notes for initial presentation, exam, course and plan. Case endorsed to follow-up with mental health this morning. 0930 --mental health evaluated patient at bedside and plan is for evaluation by psychiatrist for second certificate at 11 AM. 1145 --plan is for inpatient psychiatric hospitalization as second certificate was completed by psychiatrist. Discussed with mental health and likely no bed availability today. Patient will likely remain here over the weekend. 01/14/21 0900 --pt talkative with pressured speech. Noted to be talking to himself at times. Frequently walking toward the CPSO with pressured speech. Discussed patient's medication regimen with him and he states he has not taken medication for months. He is willing to take gabapentin but states he will not take the Lamictal. Discussed that trazodone is on his allergy list and also on his medication list. He states he will not take trazodone as he does not believe in SSRIs. 1130 --patient had a telehealth visit with [facility] psychiatrist Dr. Vanessa. The monitor screen for the video visit was not working and patient had a telephone eval I discussed with Dr. Vanessa over the phone and he states patient is having an acute manic episode in context of bipolar with psychotic features. He is recommending olanzapine 10 mg p.o. twice daily but is aware that patient will likely refuse this but recommends to continue offering it to patient. In terms of emergency medication, agrees with plan for IM Haldol and IM Ativan, or solely IM Zyprexa. He states that of subdissociative doses of ketamine can actually make psychosis worse and does not recommend this. He states that patient does have the right to access to legal billing coordinator through the [employer]. Patient can contact [place] Enforcement Manager to discuss this -- He will provide the number in his note but likely they will not be available over the weekend. Pt is refusing to take the olanzapine at this time and states there is nothing wrong with my thoughts and feelings. It is you people that do not feel comfortable with it. I am a fallen Bobby and I am not from this place. <Marty Alves MD - Last Filed: 01/18/21 16:27> 1700 --I contacted to request routine consultation. 1839 --while speaking with mental health electrical lineworker, patient became violent and aggressive throwing hot coffee in the room threatening staff, wilber giraldo called, de-escalation attempts were unsuccessful. Patient demanding to leave. Patient became extremely violent and aggressive. [facility] police did respond to assist in restraint application and ensure safety of staff and the patient. Patient was able to safely be transitioned to stretcher and physical restraints were applied for his own protection of the protection abundance. Chemical restraint also administered as antipsychotic and anxiolytic treatment. 1918 --patient continued to have agitation and observed by nursing that is twisting in restraint and may injure his right arm. Attempted de-escalation techniques and patient remains quite labile, screaming and threatening at times. Initial plan to give additional sedative for his own protection. Nursing went to administer medicine and patient had calm down and was tolerating restraint without complication. Ketamine held. ---- 01/17/21 8:00 -- Patient signed out. Awaiting psych placement. Patient noted to have not slept welll overnight. Refusing medications. 9:32 --I recommended to patient that he take Zyprexa and Ativan and he is refusing. Patient is exhibiting escalating behavior. De-escalation techniques being utilized. Patient requesting nicotine losenge which was provided. -- Patient transferred to [facility] - offered doc to doc and was declined. Patient stable at time of transfer. <León Ruth MD - Last Filed: 01/15/21 17:57> Assumed care of the patient for the day shift of January 15. He has been coopera tive with staff and redirectable. He remains on involuntary psychiatric hold pending appropriate psychiatric disposition. <Natalia Alves MD - Last Filed: 01/16/21 10:10> 01/16/[address] Barrientos at time of shift change, patient pending inpatient placement. Per signout report, patient has been calm and cooperative receiving Valium and gabapentin, has refused p.o. olanzapine. Patient is resting in the emergency department. 10:[address] Grewal of [facility] requesting update. I did update him that patient has remained calm and cooperative while receiving gabapentin and Valium. Dr. Vanessa stated that these medications are appropriate for continued use in the short-term, however they are not treating his underlying psychiatric issues. States that when patient does become inpatient, may need court ordered medication to treat his hayder and psychosis. Recommend IM Haldol/Ativan/Benadryl or IM olanzapine should patient become severely agitated. No further acute intervention recommended at this time. We continue to await placement. Medical Records Medical records reviewed: Yes I reviewed the patient's medical records. HPI <JOHNATHAN Acosta - Last Filed: 01/16/21 09:43> General Mode of arrival: ambulatory . Date/Time Provider Initiated Documentation: 01/12/21 19:41 . Limitations to Documentation: altered mental status . Information obtained by: patient and police . HPI Narrative: This is a 20-year-old male who presents to the ER in police custody, having had a warrant, for a psychiatric evaluation. Apparently he had locked himself in his apartment, would not come out for police or mental health. Presents now stating I am speaking too fast, this is too spiritual for you, you cannot even begin to understand. Patient elicits historian and will not answer many of my questions directly. Patient denies any homicidal ideation, tells me they told me I was suicidal. He admits to marijuana use but denies drugs or alcohol. He denies recent illness or trauma. He has no acute medical concerns or complaints at this time. Patient states that he is going through a spiritual journey and no one can truly understand. Patient also is reporting concern about government conspiracies but will not give me any specific details. He denies being on any oral medications currently. He denies trying to harm himself today. Related Data Home Medications Medication Instructions Recorded Confirmed quetiapine 25 mg tablet 25 mg PO QHS #60 tab 07/29/20 07/29/20 gabapentin 600 mg PO TID 01/13/21 01/13/21 lamotrigine [Lamictal] 100 mg PO BID 01/13/21 01/13/21 trazodone 50 mg PO HS 01/13/21 01/13/21 Previous Rx's Medication Instructions Recorded quetiapine 25 mg tablet 25 mg PO QHS #60 tab 07/29/20 Allergies Allergy/AdvReac Type Severity Reaction Status Date / Time ampicillin Allergy Skin Rash Verified 02/19/20 11:15 ampicillin sodium Allergy Skin Rash Verified 02/19/20 11:15 [From Unasyn] sulbactam sodium Allergy Skin Rash Verified 02/19/20 11:15 [From Unasyn] sulfamethoxazole Allergy Skin Rash Verified 02/19/20 11:15 [From Bactrim] trimethoprim [From Bactrim] Allergy Skin Rash Verified 02/19/20 11:15 acetaminophen [From Tylenol] AdvReac Intermediate head fog Verified 02/19/20 11:15 amitriptyline AdvReac Intermediate Agitation Verified 02/19/20 11:15 trazodone AdvReac Intermediate Agitation Verified 02/19/20 11:15 diphenhydramine AdvReac Other (See Verified 02/19/20 11:15 [From Benadryl] Comment) gluten AdvReac Other (See Unverified 02/22/20 22:30 Comment) General Stated Complaint: PsychEval RADHA: 2 Review of Systems <JOHNATHAN Acosta - Last Filed: 01/16/21 09:43> Unobtainable due to mental condition PFSH <JOHNATHAN Acosta - Last Filed: 01/16/21 09:43> Medical History Acne Anxiety Conduct disorder Depressed mood Drug abuse Encounter to establish care Poor appetite Primary insomnia Suicidal ideation Surgical History S/P appendectomy (~06/17/10) Family History Father Substance abuse Depression Mother Anxiety Sister Anxiety Depression Social History Smoking/Tobacco Use Status: Current-Occasional Tobacco: How many years used: 1 Smoking risk assessment performed?: Yes Alcohol Intake: current Alcohol Intake frequency: a few times a month Drug use: Never Substance use type: marijuana and hallucinogens Details: Pt has used various illicit hallucinigens in the past but denies using them currently Adopted: No Caregiver/Support person: No Foster care: No Household members: none Housing: other Do you need help understanding health information?: Rarely current occupation: UnEmployed Sexually active: Yes Do you think of yourself as: straight/heterosexual Current gender identity: male Do you feel safe at home: No Do you feel safe in your relationship?: No Exam <JOHNATHAN Acosta - Last Filed: 01/16/21 09:43> Const General: anxious Orientation: alert, awake, oriented to person and oriented to place [facility] Head: normal to inspection, normocephalic and atraumatic Face and sinus: normal facial exam Mouth: moist mucous membranes Throat: posterior oropharynx normal Eyes General: appearance normal, both eyes and all related structures Alignment and Position: alignment normal Periorbital: periorbital findings normal Eyelids: eyelids normal Conjunctivae: conjunctivae normal Sclera: sclerae normal Cornea: corneas normal Pupils: PERRL EOM: EOM intact bilaterally Direct ophthalmoscopy: normal light reflex Neck Neck: normal visual inspection, full ROM, no lymphadenopathy, no meningeal signs, trachea midline, supple and nontender Resp Effort & Inspection: normal respiratory effort and able to speak in complete sentences Auscultation: clear to auscultation bilaterally Cardio Rate: regular rate Rhythm: regular rhythm GI Palpation: soft and nontender Back/Spine/Pelvis Back: No back tenderness Skin General skin exam: no rashes or lesions noted Neuro General: patient alert, patient awake, moves all extremities and no focal motor deficits Speech: speech normal Gait: normal gait Motor: muscle tone normal throughout Sensory Exam: no sensory deficits noted Psych Appearance: disheveled Mental Status: mental status grossly normal Speech and Movement: pressured speech Mood: paranoid Affect: animated Attitude: cooperative Thought Process: flight of ideas and tangential Thought Content: delusions and no homicidality Insight: poor Judgment: poor Course <JOHNATHAN Acosta - Last Filed: 01/16/21 09:43> Vital Signs Vital signs: Vital Signs Temperature 36.6 C 01/12/21 19:27 Pulse 107 H 01/12/21 19:27 Respiratory Rate 24 01/12/21 19:27 Blood Pressure 150/79 H 01/12/21 19:27 Pulse Oximetry 98 01/12/21 19:27 Temperature 36.6 C 01/12/21 19:27 Temperature Source Oral 01/12/21 19:27 Pulse 107 H 01/12/21 19:27 Respiratory Rate 24 01/12/21 19:27 Respiratory Effort Non-Labored 01/12/21 19:31 Blood Pressure 150/79 H 01/12/21 19:27 Blood Pressure Position Sitting 01/12/21 19:27 Pulse Oximetry 98 01/12/21 19:27 Oxygen Delivery Method Room Air 01/12/21 19:27 Oxygen Flow Rate 0 01/12/21 19:27 Pain Level 0 01/12/21 19:27 Lab/Test Results Lab/Test Results: Laboratory Tests Range/Units 01/12/21 01/12/21 01/12/21 19:55 19:55 19:55 WBC (4.4-10.8) 10^3/uL 9.54 RBC (4.36-5.78) 10^6/uL 4.73 Hgb (13.5-17.5) g/dL 14.7 Hct (40.0-50.0) % 44.1 MCV (80-95) fL 93.2 MCH (27.0-33.0) pg 31.1 MCHC (32.0-36.0) % 33.3 RDW (11.8-14.1) % 11.9 Plt Count (130-400) 10^3/uL 301 MPV (8.0-11.0) fL 9.6 Immature Gran % 0.3 Neutrophils % 65.5 Lymphocytes % 25.5 Monocytes % 7.5 Eosinophils % 0.7 Basophils % 0.5 Nucleated RBC % % 0 Absolute Neutrophils (1.2-6.7) 10^3/uL 6.24 Absolute Lymphocytes (1.2-3.4) 10^3/uL 2.43 Absolute Monocytes (0.1-0.8) 10^3/uL 0.72 Absolute Eosinophils (0.0-0.7) 10^3/uL 0.07 Absolute Basophils (0.0-0.2) 10^3/uL 0.05 Sodium (136-145) mmol/L 143 Potassium (3.5-5.1) mmol/L 3.6 Chloride (98-107) mmol/L 105 Carbon Dioxide (21.0-32.0) mmol/L 26.9 Anion Gap (3-11) mmol/L 11.1 H BUN (7-18) mg/dL 15 Creatinine (0.70-1.30) mg/dL 0.9 Estimated GFR/1.73 m2 (mL/min/1.73m2) >= 60.00 Glucose (74-106) mg/dL 101 Calcium (8.5-10.1) mg/dL 9.1 Total Bilirubin (0.2-1.0) mg/dL 0.4 AST (15-37) U/L 10 L ALT (16-63) U/L 19 Alkaline Phosphatase (46-116) U/L 72 Total Protein (6.4-8.2) g/dL 7.6 Albumin (3.4-5.0) g/dL 4.6 TSH (0.36-3.74) uIU/mL 0.54 Salicylates (<2.8) mg/dL < 2.8 Acetaminophen (10-30) ug/mL < 2 Ethyl Alcohol (<3) mg/dL < 3.0 <Marty Alves MD - Last Filed: 01/18/21 16:27> Time of Face to Face Face to Face: Time of Face to Face: 18:42 Patient's Immediate Situation Requiring Restraints/Seclusion: Harm to Patient Patient Response to Restraints: Tolerating without Problems Need for Continuation of Restraints Has Been Assessed: Restraints Continued 2nd Face to Face: Patient's Immediate Situation Requiring Restraints/Seclusion: Harm to Patient Patient Response to Restraints: Tolerating without Problems Patient's Medical & Behavioral Condition: Patient recently labile, plan to continue restraints and monitor closely Need for Continuation of Restraints Has Been Assessed: Restraints Continued Sign Out <JOHNATHAN Acosta - Last Filed: 01/16/21 09:43> Sign Out Data: Sign Out Comment: Patient presented with police on a warrant for a psychiatric evaluation. Patient with pressured speech, paranoid, tangential thinking, etc. Mental health evaluation completed, emergency involuntary paperwork completed and placement is attempting to be found. Medical screening examination and laboratory values did not reveal any obvious emergent process. Last updated by Neo Coles PA at 01/12/21 22:00 Sign Out Comment: Involuntary admission, pressured speech, paranoid, tangential thinking throughout the night, patient otherwise remained stable. No interventions. Last updated by Calvin Barrientos DO at 01/13/21 06:08 Sign Out Comment: Second certificate completed today. Patient otherwise cooperative. Likely no bed availability today for transfer for inpatient hospitalization. Continue to hold in the ED at this time while awaiting placement. Last updated by Lillie Franco DO at 01/13/21 14:53 Sign Out Comment: Patient is here on EE. He did have episode of extreme agitation and violence that required chemical and physical restraint application. Patient now relaxed and cooperative. [facility] Last updated by Marty Alves MD at 01/13/21 22:59 Sign Out Comment: Involuntary patient, pending inpatient bed placement at outside psychiatric facility. Patient stable throughout the night. Patient slept, and required no intervention Last updated by Calvin Barrientos DO at 01/14/21 04:54 Sign Out Comment: Pt evaluated by [facility] psychiatrist Dr. Vanessa today who recommended olanzapine 10 mg p.o. BID which patient has declined. Otherwise patient cooperative and no acute events today. Last updated by Lillie Franco DO at 01/14/21 19:58 Sign Out Comment: Involuntary placement. Pending inpatient bed placement. Patient slept well throughout the night. No interventions were required. Last updated by Calvin Barrientos DO at 01/15/21 04:36 Sign Out Comment: Awaits final disposition. Requested Ativan 1mg approximately 630pm for anxiety Last updated by León Ruth MD at 01/15/21 19:31 Sign Out Comment: Involuntary admission, requested Valium at night to sleep. Patient stable throughout the night. Pending inpatient placement Last updated by Calvin Barrientos DO at 01/16/21 08:02 Sign Out Comment: Patient signed out to Dr. Ruth at time of shift change with placement at outside psychiatric facility pending, Patient's status remains involuntary. Last updated by Natalia Alves MD at 01/16/21 15:23 Sign Out Comment: Patient remains involuntary awaiting final placement Last updated by León Ruth MD at 01/16/21 22:31 Sign Out Comment: Pt requested gabapentin for sleep but stayed awake all night long. Tony has requested his paperwork 3 times in 3 days, including last night. He has otherwise been cooperative. Awaiting placement. Last updated by Lillie Franco DO at 01/17/21 07:06
[2021-01-12 20:54] LABS: Source Nasal/Nares
[2021-01-12 22:07] LABS: COVID-19 PCR Negative (Negative)
[2021-01-12] MEDS: Nicotine 2 MG LOZG SUC (22:08)
--- NOTE | 2021-01-12 23:45 | PDOC.MHCN_ITS ---
Date of service: 01/12/21 Time of Service: 19:45 Mental Health Crisis Note Presenting Issue How did you arrive at the ED and why did you come: The client was transported to [facility] ED via [facility] on a mental health warrant. Refer to warrant / EE application for additional information. Precipitating Factors The client presents in paper garments lying down with half his body dangling from the edge of the hospital bed. Appearance is mildly disheveled, otherwise unremarkable. 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 He is behaviorally calm, no apparent non-verbal indicators of acute distress or volatility. Mood reported as It's all an artistic thing, finding meaning and God. Fuck society. Affect is flat / subdued, some emotional lability with alexithymic features noted as client raises his voice and shifts about in apparent response to verbal exchange / report. Thought process appears highly tangential with loose associations requiring frequent redirection, however he is able to offer some coherent responses. He presents with some delusional and paranoid thought content, citing evils of societal psychosis and referencing himself as a transcendent deity or 'God' seeking spiritual attunement while exploring altered states of consciousness and reality. Unable to verify history or presenting manifestation of A/V/O/S - client states I don't know if I hear voices. and dismissively laughs when asked if he experiences hallucinatory sy mptoms. He reports taking no medication and states I refuse to take medications. The client does not explicitly endorse SI/HI/SIB, intent or plan at time assessment and reports By your definition of suicidal or homicidal ideation, no. He is unable or unwilling to comment on presenting for voluntary treatment at this time. Assessment tools not completed due to client's inability to offer completely coherent responses. Disposition BEHAVIOR: Calm EYE CONTACT: Fair MOOD: It's all an artistic thing, finding meaning and God. Fuck society. AFFECT: Mixed (refer to above) APPETITE: N/A SLEEP(trouble falling/staying asleep: N/A Plan In agreement with attending medical provider the client will remain on invuluntary status, This clinician has notified [facility] and faxed requisite documents accordingly - 2nd certification process is planned for Saturday 7 in the AM. Signature Clinician's Name/Title: ALBIN Keys clinician / [facility]
[2021-01-13] MEDS: Nicotine 2 MG LOZG SUC ×3 (01:01→15:21)
[2021-01-13 02:30] LABS: Bilirubin Negative (Negative); Blood Negative (Negative); Clarity Clear (Clear); Glucose Negative (Negative); Ketones Negative (Negative); Leukocyte Esterase Negative (Negative); Nitrite Negative (Negative); Specific Gravity >= 1.030 (1.005-1.025); Urobilinogen 0.2 EU/dL (Up TO 0.2)
[2021-01-13 02:41] LABS: *AMPHETAMINES SCREEN URINE Negative (Negative); *BARBITURATES SCREEN URINE Negative (Negative); *BENZODIAZEPINES SCREEN URINE Negative (Negative); Cannabinoids THC Positive (Negative); Cocaine Screen,Urine Negative (Negative); METHADONE URINE SCREEN Negative (Negative); OPIATES URINE SCREEN Negative (Negative); Tricyclic Antidepressants Negative (Negative)
--- NOTE | 2021-01-13 09:22 | PDOC.MHCN ---
Date of service: 01/13/21 Time of Service: 09:22 Mental Health Crisis Note Presenting Issue How did you arrive at the ED and why did you come: Pt arrived to the ER on 01.12.2021 via VSP after this clinician executed a mental health Warrant. Precipitating Factors Pt did not disclose any SI or HI today however, did tell his CPSO this am that it is his right to do suicide if he chooses. That we are going against his rights keeping him here. Pt also did not disclose any HI however also has continued to make references to school shooters and bombers. His thoughts are disorganized and tangential. Disposition BEHAVIOR: Pt is lying n his bed with his eyes closed but not asleep. He acknowledges this clinician's presence however, is agitated by it as well Go fuck yourself. He keeps referencing his rights jainism and otherwise don't tread on me. I wanna go home. He has no insight or judgment to his words and how they are affecting his current situation. EYE CONTACT: Eye contact is fair. MOOD: Pt is agitated and unsettled. AFFECT: Affect is flat and blunted. APPETITE: Pt has been eating some while here. SLEEP(trouble falling/staying asleep: Pt has not slept since his arrival on 01.12.2021. Plan Pt will remain on EE status and will have a second certification at some point today. Placement will be sought and until such time as his symptoms dissipate where he can safely return to his daily functioning or placement is found Pt will be screened twice daily by [facility] and remain at [facility]. All hospitals were called today with no available beds. [facility], [facility] and [facility]. Signature Clinician's Name/Title: Anabel Erickson MS, [facility] Emergency Services Clinician, [facility]
--- NOTE | 2021-01-13 10:18 | NUR.NOTE ---
Patient talking about school shooters and saying that the world pushes people into becoming shooters.
--- NOTE | 2021-01-13 14:22 | CMSP_ITS ---
- If Service Date Differs Date of service: 01/13/21 Time of Service: 09:45 Care Management Safety Plan Status: Involuntary - Reason for Wait Reason for Wait: Inpatient Admission CM will respond to ED to assess patient after patient has been medically cleared and assessed by screener. If screener deems patient meets criteria for psychiatric stabilization CM will facilitate interdepartmental huddle with [facility] screener for safety planning considerations and meet with patient to review [facility] policy and safety plan, establish individual wishes for treatment and maintain patient rights. In the interim; please note safety plan below to guide patient care while awaiting further assessment in the ED. SAFETY PLAN: 1. Will remain on suicide precautions and in paper clothes. 2. Will remain in room under direct supervision of one-on-one staff at all times provided by HERI, RETURN CHECKER motor lodge clerk. 3. May have paper cups, plates, finger foods as well as a cardboard spoon with which to eat meals. 4. Follow [facility] Management of the Admitted Behavioral Health Patient policy. 5. Comfort bath system only. 6. No personal belongings 7. No visitors. 8. Phone contact limited to?.. 9. Due to VOLUNTARY status, if patient wishes to leave [facility], staff will contact [facility] Crisis Screener ([phone]) and On-Call Restaurant Area Manager ([phone]) as soon as possible. In the event of elopement, notify [facility] Police ). If deemed appropriate for inpatient psychiatric care, safety plan will be established with patient, and care team, to adhere to patient goals, identify restrictions based on behavioral status, address nutrition, and determine allowed personal belongings, tools for hygiene and personal care. As well plan will determine level of activity including ambulation, level of supervision, visitors, and determine privileges based on level of acuity, behaviors and level of engagement by patient.
--- NOTE | 2021-01-13 14:37 | CMSP_ITS ---
- If Service Date Differs Date of service: 01/13/21 Time of Service: 14:37 Care Management Safety Plan Status: Involuntary INVOLUNTARY FOR INPATIENT PSYCHIATRIC STABILIZATION. Skyler is a 20 year old young man who presented to the ED accompanied by VSP on a warrant. Since October the [facility] team has received several calls from family as well as other [facility] workers indicating that Skyler has been making concerning statement, but they had not reached the level where intervention was indicated. On 01/11/21 Skyler had a text message interchange with a clinician where his statements were threatening and a determination was made that at this time an intervention was needed. A warrant was obtained and he was transported to the hospital. Safety plan has been established to meet the needs of the patient, and consideration of the care team, to adhere to patient goals, identify restrictions based on behavioral status, address nutrition, and determine allowed personal belongings, tools for hygiene and personal care. Determine level of activity including ambulation, level of supervision, visitors, and determine privileges based on behaviors and level of engagement by pt. SAFETY PLAN: 1. Will remain on SI/HI precautions. In Paper Clothes 2. Will remain in room under direct supervision of one-on-one staff at all times provided by CPSO; HERI, PUBLIC HEALTH POLICY ANALYST adz worker. 3. May have paper cups, plates, finger foods as well as a cardboard spoon 4. Follow [facility] Management of the Admitted Behavioral Health Patient policy. 5. Comfort bath system only. 6. No personal belongings 7. Visitors: none at this time 8. Activities: may have limited soft items from activity cart such as coloring books, paper and crayons. 9. Bathroom privileges with supervision 10. Phone: None at this time 11. Due to INVOLUNTARY status, patient is being held at [facility] by the Department of Mental Health ([facility]) until 2nd certification by [facility] Psychiatrist can be performed (within 24 hours). Staff will provide de-escalation support (CPI) as n eeded. If patient wishes to leave [facility], staff will contact [facility] Crisis Screener ([phone]) and On-Call Machinist Bench ([phone]) as soon as possible. In the event of elopement, notify [facility] Police ([phone]). Patient is currently involuntarily at [facility]. [facility] Frontline Director Hr Communications will continue seeking placement. Please contact the Acid Plant Helper Machinist Bench ([phone]) for any needed changes to Safety Plan. Safety plan has been provided to interdepartmental care team. Patient will be transported by net web application developer at time of discharge.
[2021-01-13] MEDS: diphenhydrAMINE 50 MG/ML VIAL 25 MG IM (18:30)
[2021-01-13] MEDS: Haloperidol 5 MG/ML VIAL IM (18:30)
[2021-01-13] MEDS: Midazolam 2 MG/2 ML VIAL 4 MG IM (18:30)
--- NOTE | 2021-01-13 20:15 | PDOC.MHCN ---
Date of service: 01/13/21 Time of Service: 18:00 Mental Health Crisis Note Presenting Issue How did you arrive at the ED and why did you come: The patient is on involuntary status as of 01.12.21 w/r/t manic psychosis episode. He is seen for planned assessment following completion of 2nd certification process. Precipitating Factors The patient is observed to be sitting on a bed and aggressively crumpling up paper sheets and throwing them against wall repeatedly. He makes brief eye contact and then continues shuffling paper about while fidgeting with nearby bedside tray. This clinician attempted to complete assessment process, however the patient is not cooperative and becomes increasingly agitated. On SI/HI/SIB inquiry he states ?I?m having thoughts of going home and having a nap. I just want to go home and sleep in my fucking apartment. Fuck you asshole. Ya?ll motherfuckers are wasting my time. Maybe you?re the one who planted the idea into my head, maybe you?re the agent who produced it.? Patient at this point is observed to stand up, throw a styrofoam beverage container full of liquid onto wall with verbal hysterics while adopting an aggressive/threatening posture directed towards this clinician. This clinician attempted to de-escalate patient, however at this juncture it was necessary to leave the room due to safety concerns. Disposition BEHAVIOR: Uncooperative, agitated, dysregulated EYE CONTACT: N/A MOOD: N/A AFFECT: Agitated / aggressive APPETITE: N/A SLEEP(trouble falling/staying asleep: N/A Plan A code giraldo was initiated and the patient was placed in physical and chemical restraints. The patient will remain on involuntary status until suitable psychiatric in-patient placement can be secured. Per passover from daytime [facility] clinician, RJ has potential opening at [place] [id number] 01.14.21. Updated labs and completed EE packet has been faxed accordingly. Signature Clinician's Name/Title: Denilson Knox [facility] clinician / HP
[2021-01-14] MEDS: Nicotine 2 MG LOZG SUC ×3 (08:58→21:33)
[2021-01-14] MEDS: Gabapentin 300 MG CAP 600 MG PO ×2 (10:27→22:28)
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
--- NOTE | 2021-01-14 12:37 | PDOC.MHCN ---
Date of service: 01/14/21 Time of Service: 12:10 Mental Health Crisis Note Presenting Issue How did you arrive at the ED and why did you come: Client has been boarding at [facility] since 01/11/21 as a result of a warrant written by another clinician. Precipitating Factors Client states that he is not a threat to himself or another person; however he presents as though he is in a psychotic state, he lacks rationale, his mind lives in a fantasy world referring to himself as the phoenix. Client reports that he believes he is superior to all humans and lives in a biblical world where he only answers to God. Client exhibits futuristic goals as he would like to write a book and memorize all forms/editions of every bible written. Client refuses all medication; however he states previous medications have proven to be effective. Client states he does not require medication as he is on the high/low, and love/hate walking the razor's edge. Client has no sense of reality, but extremely intelligent as he describes his alternate world. Disposition BEHAVIOR: Cooperative EYE CONTACT: made good eye contact and engaged in conversation (although in a fantasy world) MOOD: happy when describing himself as being a phoenix in his world and reproting directly to god AFFECT: full range APPETITE: struggles to eat consistently SLEEP(trouble falling/staying asleep: sleep disturbane Plan Client will remain at [facility] awaiting involuntary placement. Signature Clinician's Name/Title: Gail Burger Emergency Communications Billing Analyst
[2021-01-14] MEDS: Ibuprofen 600 MG TAB PO (14:18)
[2021-01-14 21:30] VITALS: BP 121/76; PULSE 87; RESP 16; TEMP 37; O2SAT 98
[2021-01-15] MEDS: Nicotine 2 MG LOZG SUC (10:27)
[2021-01-15] MEDS: LORazepam 1 MG TAB (18:40)
[2021-01-15] MEDS: Gabapentin 300 MG CAP 600 MG PO (21:34)
[2021-01-16] MEDS: diazePAM 5 MG TAB PO (02:16)
[2021-01-16 02:47] VITALS: TEMP 36.8
[2021-01-16 02:54] VITALS: BP 124/78; PULSE 77; RESP 18; TEMP 36.8; O2SAT 96
--- NOTE | 2021-01-16 08:48 | MHPN_ITS ---
Date of service: 01/16/21 Time of Service: 08:50 Mental Health Progress Note Progress Note Progress Note: Presenting Issue: Client is currently awaiting involuntary placement after a warrant was executed on 01/12/21. Precipitating Factors Client sent concerning text messages, and an audio recording of client was presented to [facility] emergency services. Disposition * Behavior: Client presents as tangential with disorganized thoughts and paranoia. Client denies SI/HI, but states, I know there's a fear that what I want to do micht be harmful. Whatever I want to do will be in my best interest. *Eye Contact: Consistent, intense *Mood: Agitated *Affect: congruent *Appetite: Did not assess *Sleep(troubel falling/staying asleep): Client reports he is not sleeping Plan(please elaborate and include that physician is consulted with plan and/or placement): Client will continue to await placement on involuntary status. Clinician's Name , Title, and Signature Rebecca REED Clinician Make sure that you are photocopying and submitting this to [facility] records Dept. to be scanned into chart.
--- NOTE | 2021-01-16 11:01 | PDOC.MHCN_ITS ---
Date of service: 01/16/21 Time of Service: 11:01 Mental Health Crisis Note Presenting Issue How did you arrive at the ED and why did you come: Pt arrived on 01.12.2021 via VSP after this clinician executed a Mental Health Warrant due to safety concerns. Precipitating Factors Pt denied SI and HI stating I haven't been since I arrived here. He is not showing signs of delusions however, his thoughts are still tangential and loose. Disposition BEHAVIOR: Pt is asleep when this clinician arrived. He woke up and did interact with this clinician and was pleasant however, Pt is one to get agitated quickly at times but to this clinicians knowledge has never been aggressive toward any one in particular. He asked to speak to the Virgilio and when he was informed this would be requested he laughed oddly as this clinician left the room. EYE CONTACT: Eye contact is fair. MOOD: Mood is labile. AFFECT: Affect is innapropirate. APPETITE: Pt stated that he is eating. SLEEP(trouble falling/staying asleep: Pt reported good sleep. Plan Pt will remain at [facility] pending admission. Based on his potential level of impulsively and lack of insight and judgment to his current symptoms it is this clinician's professional belief that he remain on EE status. A huddle was had with his treatment team at [facility] and safety plan updated. All hospital's were called and all denied bed availability today. Until a bed is found or the Pt has had significant decrease in symptoms where he could safety plan back to his daily functioning Pt will be assessed twice daily. Signature Clinician's Name/Title: Anabel Erickson MS, [facility] Emergency Services Clinician, [facility]
--- NOTE | 2021-01-16 11:37 | PDOC.CMSAFED ---
- If Service Date Differs Date of service: 01/16/21 Time of Service: 11:37 Care Management Safety Plan Status: Involuntary - Reason for Wait Reason for Wait: Inpatient Admission INVOLUNTARY FOR INPATIENT PSYCHIATRIC STABILIZATION. Skyler is a 20 year old young man who presented to the ED accompanied by VSP on a warrant. Since October the [facility] team has received several calls from family as well as other [facility] workers indicating that Skyler has been making concerning statement, but they had not reached the level where intervention was indicated. On 01/11/21 Skyler had a text message interchange with a clinician where his statements were threatening and a determination was made that at this time an intervention was needed. A warrant was obtained and he was transported to the hospital. A huddle is done today at approximately 11:[address] Gonzalo Alves, ED provider, Faviola, nursing supervisors, Joy, charge nurse, SRIRAM Hays, Anabel, [facility], and COSMO Hatch, in attendance. Safety plan has been established to meet the needs of the patient, and consideration of the care team, to adhere to patient goals, identify restrictions based on behavioral status, address nutrition, and determine allowed personal belongings, tools for hygiene and personal care. Determine level of activity including ambulation, level of supervision, visitors, and determine privileges based on behaviors and level of engagement by pt. SAFETY PLAN: 1. Will remain on SI/HI precautions. In Paper Clothes 2. Will remain in room under direct supervision of one-on-one staff at all times provided by CPSO, GENERATOR TECHNICIAN, ENGINE ASSEMBLER professor of languages. 3. May have paper cups, plates, finger foods as well as a cardboard spoon with which to eat meals. 4. Follow [facility] Management of the Admitted Behavioral Health Patient policy. 5. Comfort bath system only. 6. No personal belongings. 7. Visitors: none at this time. 8. Activities: soft items from activity cart such as coloring books, paper and crayons, music tablet and cordless headphones, and other activities at RN discretion. 9. Bathroom privileges with escort. 10. Phone: None at this time 11. Due to INVOLUNTARY status, patient is being held at [facility] by the Department of Mental Health ([facility]). The 2nd certification by [facility] Psychiatrist was performed on 01/13/21 and the EE was upheld and certified. Staff will provide de-escalation support (CPI) as needed. If patient wishes to leave [facility], staff will contact [facility] Crisis Screener ([phone]) and On-Call Duct Layer ([phone]) as soon as possible. In the event of elopement, notify [facility] Police ([phone]). Patient is currently involuntarily at [facility]. [facility] Frontline Seismic Prospecting Observer will continue seeking placement. Please contact the Press Operator Apprentice Duct Layer ([phone]) for any needed changes to Safety Plan. Safety plan has been provided to interdepartmental care team. Patient will be transported by podiatric technician at time of discharge.
--- NOTE | 2021-01-16 11:46 | CMPROGNOTE_ITS ---
- If Service Date Differs Date of service: 01/16/21 Time of Service: 11:46 Care Management Progress Note S/O: Skyler is reported to have had a good weekend. He is interacting with CPSOs appropriately and there have been no behavioral issues since Saturday. Skyler does, however, continue to refuse to take his prescribed medication. He continues to be tangential in his thought process and is denying suicidal or homicidal ideation. Skyler met with AYDIN Little crisis screener, today. Referrals were faxed to [facility] and [facility] for [facility]. A: Skyler remains at [facility] awaiting an involuntary psychiatric placement. P: There are no available psychiatric beds at this time but ALBIN Little, reports that [facility] is expecting a discharge later on today and the hope is that they will consider accepting Skyler at that time. Skyler will remain at [facility] on involuntary status while [facility] continues to seek placement for him. CM will continue to follow.
--- NOTE | 2021-01-16 12:21 | NUR.NOTE ---
Nursing Note: Patient awake, just ordered lunch. Pacing in room. States I hate it here, I hate it here. States he does not have a wish, but someone thought he did because of what he said. Amanda Nielsen
[2021-01-16] MEDS: Nicotine 2 MG LOZG SUC (20:24)
[2021-01-17] MEDS: Gabapentin 300 MG CAP (02:43)
--- NOTE | 2021-01-17 03:17 | NUR.NOTE ---
Assumed care of pt from SRIRAM Hays at 1900. Pt has been awake and talkative with CPSOs. Pt requested medication to help me sleep. RN attempted to administer Ativan 1mg PO as it was a standing PRN order. RN offered it to pt, pt states Ativan, no no I cant take that it messes with my sleep. It knocks me out but I dont get any REM sleep. You know what I mean? RN asked pt what he usually takes to help him sleep and pt stated Gabapentin. RN obtained verbal order from Joan STEVENS and administered 300mg PO Gabapentin. Will continue to monitor. Nursing Note:
[2021-01-17 07:30] VITALS: BP 117/75; PULSE 66; RESP 16; TEMP 37.1; O2SAT 99
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
[2021-01-17] MEDS: Nicotine 2 MG LOZG SUC (09:37)
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
--- NOTE | 2021-01-17 13:54 | PDOC.ERCMPRO ---
- If Service Date Differs Date of service: 01/17/21 Time of Service: 13:54 Care Management Progress Note Skyler is accepted for an involuntary admission by [facility]. He is transported by [facility]. Upon discharge from [facility], Skyler will follow up with his therapist and [facility] services on an outpatient basis. - MH Services (Omit if N/A) Current MH Services: Psychiatric Inp - Status Status: Involuntary - Reason for Wait Reason for Wait: Inpatient Admission ([facility])
== END 2021-01-17 11:42 | disposition short-term general hospital (02) ==
PROVIDERS: Physician Assistant; Emergency Provider Student in an Organized Health Care Education/Training Program; PCP Family Medicine
DX: F31.2 Bipolar disorder, current episode manic severe with psychotic features (principal); F17.210 Nicotine dependence, cigarettes, uncomplicated; Z20.822 Contact with and (suspected) exposure to COVID-19; Z75.1 Person awaiting admission to adequate facility elsewhere
CPT/HCPCS: 80053; 80307; 87635; 96372; 99285; 80320; 80329; 81003; 84443; 85025; J1200; J1630; J2250

== ENCOUNTER 2022-07-27 18:34 | Emergency (ER) | payer MEDICAID, SELFPAY ==
[2022-07-27 18:41] VITALS: BP 164/97; PULSE 100; RESP 18; TEMP 36.6; O2SAT 97
--- NOTE | 2022-07-27 18:43 | NUR.NOTE ---
patient changed into blue safety scrubs, belongings have been bagged. [facility] police and security standing by.
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
--- NOTE | 2022-07-27 19:09 | NUR.NOTE ---
Per Hermila from [employer] plan is to write an emergency hold for pt. Per EVANGELISTA Nguyen he is refusing meds and if he becomes violent he can leave and will contact PD.
[2022-07-27 19:33] LABS: Abs Immature Grans 0.03 10^3/uL (0.0-0.06); Absolute Basophil Count 0.06 10^3/uL (0.0-0.2); Absolute Eosinophil Count 0.04 10^3/uL (0.0-0.7); Absolute Lymphocyte Count 1.78 10^3/uL (1.2-3.4); Absolute Monocyte Count 0.48 10^3/uL (0.1-0.8); Absolute Neutrophil Count 7.12 10^3/uL (1.2-6.7); Basophils % 0.6; Eosinophils % 0.4; HCT 43.8 % (40.0-50.0); HGB 14.8 g/dL (13.5-17.5); Immature Grans % 0.3; Lymphocytes % 18.7; MCH 31.6 pg (27.0-33.0); MCHC 33.8 % (32.0-36.0); MCV 94 fL (80-95); MPV 10.1 fL (8.0-11.0); Platelet Count 308 10^3/uL (130-400); RBC 4.68 10^6/uL (4.36-5.78); RDW 11.9 % (11.8-14.1); RDW-SD 40.9 fL; WBC 9.51 10^3/uL (4.4-10.8)
[2022-07-27 19:52] LABS: Salicylate < 2.8 mg/dL (<2.8)
[2022-07-27 19:53] LABS: Acetaminophen < 2 ug/mL (10-30)
[2022-07-27 19:56] LABS: ALT 17 U/L (16-63); AST 15 U/L (15-37); Albumin 4.9 g/dL (3.4-5.0); Alkaline Phosphatase 71 U/L (46-116); Anion Gap 10.5 mmol/L (3-11); BUN 11 mg/dL (7-18); Bilirubin, Total 0.5 mg/dL (0.2-1.0); CO2 26.5 mmol/L (21.0-32.0); CREATININE 0.9 mg/dL (0.70-1.30); Calcium 9.4 mg/dL (8.5-10.1); Chloride 103 mmol/L (98-107); ETHANOL BLOOD < 3.0 mg/dL (<10); Estimated GFR 123.84 (mL/min/1.73m2); Glucose 147 mg/dL (74-106); Potassium 3.6 mmol/L (3.5-5.1); Sodium 140 mmol/L (136-145); Total Protein 7.6 g/dL (6.4-8.2)
[2022-07-27] MEDS: Nicotine 2 MG GUM CH (20:05)
[2022-07-27 22:00] LABS: Bilirubin Negative (Negative); Blood Negative (Negative); Clarity Clear (Clear); Glucose Negative (Negative); Ketones Negative (Negative); Leukocyte Esterase Negative (Negative); Nitrite Negative (Negative); Specific Gravity <= 1.005 (1.005-1.025); Urobilinogen 0.2 EU/dL (Up TO 0.2)
[2022-07-27 22:08] LABS: Tricyclic Antidepressants Negative (Negative)
[2022-07-27 22:16] LABS: *AMPHETAMINES SCREEN URINE Negative (Negative); *BARBITURATES SCREEN URINE Negative (Negative); *BENZODIAZEPINES SCREEN URINE Negative (Negative); Cannabinoids THC Positive (Negative); Cocaine Screen,Urine Negative (Negative); METHADONE URINE SCREEN Negative (Negative); OPIATES URINE SCREEN Negative (Negative)
--- NOTE | 2022-07-27 22:47 | NUR.NOTE ---
@2100- COMPLEX DIRECTOR eval completed by Lenora. Per COMPLEX DIRECTOR pt remains on voluntary status. If pt chooses to leave they request update and will notify PD. Pt continues to endorse SI and HI in certain situations Pt continues to be cooperative. Refusing PRN Ativan and gets defensive when offered.
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
[2022-07-28] MEDS: Nicotine 4 MG GUM CH (03:11)
--- NOTE | 2022-07-28 12:48 | PDOC.CMSAFED ---
- If Service Date Differs Date of service: 07/28/22 Time of Service: 12:48 Care Management Safety Plan Status: Voluntary - Reason for Wait Reason for Wait: Inpatient Admission VOLUNTARY FOR INPATIENT PSYCHIATRIC STABILIZATION. Patient is appropriate in all interactions since arriving at [facility]; Pt has demonstrated appropriate coping and communication skills, has articulated his or her needs and concerns and is fully engaged during staff interactions. Safety plan has been established with patient, and care team, to adhere to patient goals, identify restrictions based on behavioral status, address nutrition, and determine allowed personal belongings, tools for hygiene and personal care. Determine level of activity including ambulation, level of supervision, visitors, and determine privileges based on behaviors and level of engagement by pt. SAFETY PLAN: 1. Will remain on suicide precautions. In Paper Clothes 2. Will remain in room under direct supervision of one-on-one staff at all times provided by [employer]; HERI, DIGITAL DESIGN ENGINEER rigging supervisor. 3. May have paper cups, plates, finger foods as well as a cardboard spoon with which to eat meals. 4. Follow [facility] Management of the Admitted Behavioral Health Patient policy. 5. Comfort bath system only, shower permitted with escort at RN discretion. 6. No personal belongings-soft items permitted at RN discretion. 7. Visitors-none at this time. 8. Activities: soft cart items approved per RN discretion. 9. Bathroom privileges with escort in the ED, available in room without limitation on M/S. 10. Phone: no phone privileges at this time. 11. Due to VOLUNTARY status, if patient wishes to leave [facility], staff will contact [facility] Crisis Screener ([phone]) and On-Call Top Ironer ([phone]) as soon as possible. In the event of elopement, notify [facility] Police ([phone]). Patient is currently voluntarily at [facility] and seeking inpatient admission when a bed becomes available. [facility] Frontline Billet Examiner will continue seeking placement. Please contact the Inventory Representative Top Ironer ([phone]) and [facility] Billet Examiner ([phone]) for any needed changes in the Safety Plan. Safety plan has been provided to interdepartmental care team.
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
--- NOTE | 2022-07-28 13:10 | PDOC.MHCN ---
Date of service: 07/28/22 Time of Service: 10:25 PHQ-9 Over the last 2 weeks, how often have you been bothered by any of the following problems? 1. Little interest or pleasure in doing things: not at all 2. Feeling down, depressed, or hopeless: not at all 3. Trouble falling or staying asleep, or sleeping too much: several days 4. Feeling tired or having little energy: not at all 5. Poor appetite or overeating: not at all 6. Feeling bad about yourself - or that you are a failure or have let yourself and your family down: not at all 7. Trouble concentrating on things, such as reading the newspaper or watching television: not at all 8. Moving or speaking so slowly that other people could have noticed? - Or the opposite - being so fidgety or restless that you have been moving around a lot more than usual: not at all 9. Thoughts that you would be better off or of hurting yourself in some way: not at all Total score: 1 If you checked off any problems, how difficult have these problems made it for you to do your work, take care of things at home, or get along with other people?: extremely difficult Source: Developed by Drs. Piero Zaman, Doreen Power, Khari Duque and colleagues, with an educational rosa from [employer]. Suicide Severity Rate CSSRS Have you wished you were or wished you could go to sleep and not wake up?: Yes Have you actually had any thoughts of killing yourself?: Yes CSSRS2 Have you been thinking about how you might do this?: No Have you had these thoughts and had some intention of acting on them?: Yes Have you started to work out or worked out the details of how to kill yourself? Do you intend to carry out this plan?: No CSSRS3 Have you ever done anything, started to do anything or prepared to do anything to end your life?: No CSSRS4 Was this within the past three months?: No Screening Score Total Score: 4 Screening: Positive Mental Health Emergency Note Release [facility] release signed:: Yes Reason for Visit Skyler presented to [facility] on 07/27 due to increased suicidal ideation and needing a safe space. In the last 2 weeks has the pt presented for ES prior to today?: Unknown Client Information Client is: TONYA Well Housed: No,status: Homeless Non Suicidal Self Injury Current: No History: No Risk: Does risk to harm exist?: yes. Access to means: No. Risk: Moderate Risk Duty to warn indicated: No Asssessment/Mental Status Appearance: Unremarkable Attitude: Cooperative and Guarded Behavior: Poor impulse control Speech: Normal Affect: Cogruent with mood Mood: Stressed and Anxious Thought process: Unremarkable Hallucinations: No evidence Delusions: No evidence Attention: Unremarkable Perception: Not impaired Orientation: Fully orientated Memory: Intact Insight: Fair Judgement: Fair Neurovegetative Symptoms Sleep: No change Appetitie: No change Interests: No change Energy: No change Libido: Not applicable Substance Use: Do you use nicotine?: Yes Have you used substances in the last 7 days?: yes, Skyler reports smoking marijuana, but is attempting to stop. Additional Issues: Assaultive/Threatening Behavior: No Medical Concerns: No Client engaged in active self harm w/weapon: No Threatening to run away: No Child reported abuse/neglect: No Voluntarily presenting for services: Yes Domestic violence is a concern: No Extreme Psychosis or extreme behavior is present: No Impression Skyler reports he presented to [facility] due to his suicidal ideation. Skyler reports not having intention or plan behind these thoughts but he did not feel he could keep himself safe.Skyler reports the same sleep and appetite. Skyler is hoping to be transported to an inpatient facility to gather his thoughts and get extra support. Plan/Disposition Recommended Disposition: Hospitalization facilities contacted. Plan: Skyler is waiting for voluntary admission to an inpatient psychiatric hospital. Person reported agreement to plan: Yes Facilities contacted if Applicable [facility] Not accepted, No bed available [facility] Not accepted, No bed available [facility] Not accepted, Only accepting in house referrals, [facility] Not accepted, No bed available [facility] Not accepted, No bed available Reports/communication Outcome discussed with: ED/Personnel
--- NOTE | 2022-07-28 17:34 | NUR.NOTE ---
Nursing Note: patient expressing concern over court date on 07/30. Notified community associate to notify case management rn working with patient to arrange details regarding court appearance. Pt agreeable to plan, resting in room reading.
--- NOTE | 2022-07-28 22:31 | W.EDPROG ---
Date of service: 07/28/22 Time of Service: 22:31 Medical Decision Making pt still voluntary and is calm now will intermittently go on tangents and perserverate about topics but is never agitated. Will continue to monitor Sign Out Sign Out Data: Sign Out Comment: Care transition to Dr. Alves with bed placement pending. Patient is currently voluntarily seeking treatment for suicidal homicidal ideations. However, if patient was to decide that he wanted to leave, concerned that he does not have capacity to do so, as risk to himself as well as others and patient may need to be involuntarily admitted. He is medically cleared. Refusing medications. Has been evaluated by . Last updated by Wendy Lopez PA at 07/27/22 22:32 Sign Out Comment: Patient with hx of bipolar and has si, flight of ideas. Voluntary currently Last updated by Braxton Alves MD at 07/28/22 00:40 Discharge Plan Disposition Condition: Serious Discharge Details Chief Complaint: PsychEval Clinical Impression: Bipolar disorder Primary Care Provider: Laron Smith ED Provider: Braxton Alves Home Meds and New Rx's Prescriptions: No Action quetiapine 25 mg tablet 25 mg PO QHS Qty: 60 1RF gabapentin 600 mg tablet 600 mg PO TID Patient Comments: TK 1 T PO TID trazodone 50 mg tablet 50 mg PO HS Patient Comments: TK 1 T PO HS lamotrigine [Lamictal] 100 mg tablet 100 mg PO BID Patient Comments: Take 1 tablet by mouth twice a day
[2022-07-29] MEDS: Melatonin 3 MG TAB PO (01:51)
[2022-07-29 06:30] VITALS: BP 119/67; PULSE 64; RESP 18; TEMP 36.6; O2SAT 98
[2022-07-29] MEDS: Nicotine 4 MG GUM CH (09:42)
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
--- NOTE | 2022-07-29 16:28 | CMSP_ITS ---
- If Service Date Differs Date of service: 07/29/22 Time of Service: 16:28 Care Management Safety Plan Status: Voluntary - Reason for Wait Reason for Wait: Inpatient Admission VOLUNTARY FOR INPATIENT PSYCHIATRIC STABILIZATION. Patient is appropriate in all interactions since arriving at [facility]; Pt has demonstrated appropriate coping and communication skills, has articulated his or her needs and concerns and is fully engaged during staff interactions. Safety plan has been established with patient, and care team, to adhere to patient goals, identify restrictions based on behavioral status, address nutrition, and determine allowed personal belongings, tools for hygiene and personal care. Determine level of activity including ambulation, level of supervision, visitors, and determine privileges based on behaviors and level of engagement by pt. SAFETY PLAN: 1. Will remain on suicide precautions. In Paper Clothes 2. Will remain in room under direct supervision of one-on-one staff at all times provided by [employer]; HERI, SPINDLE FRAME CARVER consulting technical director. 3. May have paper cups, plates, finger foods as well as a cardboard spoon with which to eat meals. 4. Follow [facility] Management of the Admitted Behavioral Health Patient policy. 5. Comfort bath system only, shower permitted with escort at RN discretion. 6. No personal belongings-soft items permitted at RN discretion. 7. Visitors-none at this time. 8. Activities: soft cart items and music tablet approved per RN discretion. 9. Bathroom privileges with escort in the ED, available in room without limitation on M/S. 10. Phone: no phone privileges at this time. 11. Due to VOLUNTARY status, if patient wishes to leave [facility], staff will contact [facility] Crisis Screener ([phone]) and On-Call Learning Technologist ([phone]) as soon as possible. In the event of elopement, notify [facility] Police ([phone]). Patient is currently voluntarily at [facility] and seeking inpatient admission when a bed becomes available. [facility] Frontline Consulting Networking Engineer will continue seeking placement. Please contact the Daytime Babysitter Learning Technologist ([phone]) and [facility] Consulting Networking Engineer ([phone]) for any needed changes in the Safety Plan. Safety plan has been provided to interdepartmental care team.
--- NOTE | 2022-07-29 19:35 | NUR.NOTE ---
Nursing Note: pt woke up at 1935 to use the bathroom. I told pt that he missed his dinner and that I would get him something when he was ready. Pt declined and said that he was going back to sleep.
[2022-07-29 19:43] VITALS: BP 111/66; PULSE 71; RESP 18; TEMP 36.7; O2SAT 98
--- NOTE | 2022-07-29 23:48 | W.EDPROG ---
Date of service: 07/29/22 Time of Service: 23:48 Medical Decision Making pt currently calm and cooperative, still pending placement, will continue to monitor Sign Out Sign Out Data: Sign Out Comment: Care transition to Dr. Alves with bed placement pending. Patient is currently voluntarily seeking treatment for suicidal homicidal ideations. However, if patient was to decide that he wanted to leave, concerned that he does not have capacity to do so, as risk to himself as well as others and patient may need to be involuntarily admitted. He is medically cleared. Refusing medications. Has been evaluated by . Last updated by Wendy Lopez PA at 07/27/22 22:32 Sign Out Comment: Patient with hx of bipolar and has si, flight of ideas. Voluntary currently Last updated by Braxton Alves MD at 07/28/22 00:40 Sign Out Comment: hx of bipolar, flight of ideas, is currently voluntary Last updated by Braxton Alves MD at 07/28/22 23:57 Sign Out Comment: History of bipolar, flight of ideas, hyperreligiosity. Stable throughout the day. Refused any medications. Awaiting placement Last updated by Calvin Barrientos DO at 07/29/22 19:34 Discharge Plan Disposition Condition: Serious Discharge Details Chief Complaint: PsychEval Clinical Impression: Bipolar disorder Primary Care Provider: Laron Smith ED Provider: Braxton Alves Home Meds and New Rx's Prescriptions: No Action quetiapine 25 mg tablet 25 mg PO QHS Qty: 60 1RF gabapentin 600 mg tablet 600 mg PO TID Patient Comments: TK 1 T PO TID trazodone 50 mg tablet 50 mg PO HS Patient Comments: TK 1 T PO HS lamotrigine [Lamictal] 100 mg tablet 100 mg PO BID Patient Comments: Take 1 tablet by mouth twice a day
[2022-07-30] MEDS: Melatonin 3 MG TAB PO (01:52)
[2022-07-30 06:40] VITALS: BP 110/71; PULSE 70; RESP 16; TEMP 36.5; O2SAT 98
--- NOTE | 2022-07-30 15:39 | PDOC.CMSAFED ---
- If Service Date Differs Date of service: 07/30/22 Time of Service: 15:39 Care Management Safety Plan Status: Voluntary - Reason for Wait Reason for Wait: Inpatient Admission VOLUNTARY FOR INPATIENT PSYCHIATRIC STABILIZATION. Patient is appropriate in all interactions since arriving at [facility]; Pt has demonstrated appropriate coping and communication skills, has articulated his or her needs and concerns and is fully engaged during staff interactions. Safety plan has been established with patient, and care team, to adhere to patient goals, identify restrictions based on behavioral status, address nutrition, and determine allowed personal belongings, tools for hygiene and personal care. Determine level of activity including ambulation, level of supervision, visitors, and determine privileges based on behaviors and level of engagement by pt. SAFETY PLAN: 1. Will remain on suicide precautions. In Paper Clothes 2. Will remain in room under direct supervision of one-on-one staff at all times provided by [employer]; HERI, BIOLOGY MANAGER client support professional. 3. May have paper cups, plates, finger foods as well as a cardboard spoon with which to eat meals. 4. Follow [facility] Management of the Admitted Behavioral Health Patient policy. 5. Comfort bath system only, shower permitted with escort at RN discretion. 6. No personal belongings-soft items permitted at RN discretion. 7. Visitors-none at this time. 8. Activities: soft cart items and music tablet approved per RN discretion. 9. Bathroom privileges with escort in the ED, available in room without limitation on M/S. 10. Phone: no phone privileges at this time. 11. Due to VOLUNTARY status, if patient wishes to leave [facility], staff will contact [facility] Crisis Screener ([phone]) and On-Call Business Process Analyst ([phone]) as soon as possible. In the event of elopement, notify [facility] Police ([phone]). Patient is currently voluntarily at [facility] and seeking inpatient admission when a bed becomes available. [facility] Frontline Certified Massage Therapist will continue seeking placement. Please contact the Senior Technical Writer Business Process Analyst ([phone]) and [facility] Certified Massage Therapist ([phone]) for any needed changes in the Safety Plan. Safety plan has been provided to interdepartmental care team.
[2022-07-30] MEDS: Nicotine 4 MG GUM CH (21:25)
--- NOTE | 2022-07-30 23:43 | W.EDPROG ---
Date of service: 07/30/22 Time of Service: 16:00 Medical Decision Making 1600 -- Please see previous provider's notes for initial presentation, exam and plan. Case endorsed to continue to monitor while awaiting placement. 2300 -- patient quite talkative with flight of ideas throughout shift. He has been standing in the doorway the entire shift speaking to the [employer]. He had a couple outbursts where he punched the door and the wall when he was upset about missing a court date but he was able to be redirected. Medical Records Medical records reviewed: Yes I reviewed the patient's medical records. Sign Out Sign Out Data: Sign Out Comment: Care transition to Dr. Alves with bed placement pending. Patient is currently voluntarily seeking treatment for suicidal homicidal ideations. However, if patient was to decide that he wanted to leave, concerned that he does not have capacity to do so, as risk to himself as well as others and patient may need to be involuntarily admitted. He is medically cleared. Refusing medications. Has been evaluated by . Last updated by Wendy Lopez PA at 07/27/22 22:32 Sign Out Comment: Patient with hx of bipolar and has si, flight of ideas. Voluntary currently Last updated by Braxton Alves MD at 07/28/22 00:40 Sign Out Comment: hx of bipolar, flight of ideas, is currently voluntary Last updated by Braxton Alves MD at 07/28/22 23:57 Sign Out Comment: History of bipolar, flight of ideas, hyperreligiosity. Stable throughout the day. Refused any medications. Awaiting placement Last updated by Calvin Barrientos DO at 07/29/22 19:34 Sign Out Comment: still pending transfer, no issues overnight Last updated by Braxton Alves MD at 07/30/22 00:45 Discharge Plan Disposition Condition: Serious Discharge Details Chief Complaint: PsychEval Clinical Impression: Bipolar disorder Primary Care Provider: Laron Smith ED Provider: Calvin Barrientos Home Meds and New Rx's Prescriptions: No Action quetiapine 25 mg tablet 25 mg PO QHS Qty: 60 1RF gabapentin 600 mg tablet 600 mg PO TID Patient Comments: TK 1 T PO TID trazodone 50 mg tablet 50 mg PO HS Patient Comments: TK 1 T PO HS lamotrigine [Lamictal] 100 mg tablet 100 mg PO BID Patient Comments: Take 1 tablet by mouth twice a day
--- NOTE | 2022-07-31 02:04 | W.EDPROG ---
Date of service: 07/31/22 Time of Service: 02:04 Medical Decision Making pt remains calm and cooperative, no acute complaints, still awaiting placement Sign Out Sign Out Data: Sign Out Comment: Care transition to Dr. Alves with bed placement pending. Patient is currently voluntarily seeking treatment for suicidal homicidal ideations. However, if patient was to decide that he wanted to leave, concerned that he does not have capacity to do so, as risk to himself as well as others and patient may need to be involuntarily admitted. He is medically cleared. Refusing medications. Has been evaluated by . Last updated by Wendy Lopez PA at 07/27/22 22:32 Sign Out Comment: Patient with hx of bipolar and has si, flight of ideas. Voluntary currently Last updated by Braxton Alves MD at 07/28/22 00:40 Sign Out Comment: hx of bipolar, flight of ideas, is currently voluntary Last updated by Braxton Alves MD at 07/28/22 23:57 Sign Out Comment: History of bipolar, flight of ideas, hyperreligiosity. Stable throughout the day. Refused any medications. Awaiting placement Last updated by Calvin Barreintos DO at 07/29/22 19:34 Sign Out Comment: still pending transfer, no issues overnight Last updated by Braxton Alves MD at 07/30/22 00:45 Sign Out Comment: Patient quite talkative today, flight of ideas, standing in doorway the entire shift talking to [employer]. Had a couple outbursts in which he punched the wall but able to be redirected. Remains voluntary. Awaiting placement. Last updated by Lillie Franco DO at 07/30/22 23:46 Discharge Plan Disposition Condition: Serious Discharge Details Chief Complaint: PsychEval Clinical Impression: Bipolar disorder Primary Care Provider: Laron Smith ED Provider: Braxton Alves Home Meds and New Rx's Prescriptions: No Action quetiapine 25 mg tablet 25 mg PO QHS Qty: 60 1RF gabapentin 600 mg tablet 600 mg PO TID Patient Comments: TK 1 T PO TID trazodone 50 mg tablet 50 mg PO HS Patient Comments: TK 1 T PO HS lamotrigine [Lamictal] 100 mg tablet 100 mg PO BID Patient Comments: Take 1 tablet by mouth twice a day
[2022-07-31 05:26] VITALS: BP 127/88; PULSE 83; RESP 16; TEMP 36.9; O2SAT 98
--- NOTE | 2022-07-31 08:06 | W.EDPROG ---
Date of service: 07/31/22 Time of Service: 19:34 Medical Decision Making I received signout on this 22-year-old male with a history of bipolar disorder currently in the emergency department voluntarily flight of ideas. No active behavioral issues last shift. We will update documentation as clinically warranted. 7:34 PM No active behavioral issues on my shift. Patient was signed out to the oncoming overnight provider. Sign Out Sign Out Data: Sign Out Comment: Care transition to Dr. Alves with bed placement pending. Patient is currently voluntarily seeking treatment for suicidal homicidal ideations. However, if patient was to decide that he wanted to leave, concerned that he does not have capacity to do so, as risk to himself as well as others and patient may need to be involuntarily admitted. He is medically cleared. Refusing medications. Has been evaluated by . Last updated by Wendy Lopez PA at 07/27/22 22:32 Sign Out Comment: Patient with hx of bipolar and has si, flight of ideas. Voluntary currently Last updated by Braxton Alves MD at 07/28/22 00:40 Sign Out Comment: hx of bipolar, flight of ideas, is currently voluntary Last updated by Braxton Alves MD at 07/28/22 23:57 Sign Out Comment: History of bipolar, flight of ideas, hyperreligiosity. Stable throughout the day. Refused any medications. Awaiting placement Last updated by Calvin Barrientos DO at 07/29/22 19:34 Sign Out Comment: still pending transfer, no issues overnight Last updated by Braxton Alves MD at 07/30/22 00:45 Sign Out Comment: Patient quite talkative today, flight of ideas, standing in doorway the entire shift talking to [employer]. Had a couple outbursts in which he punched the wall but able to be redirected. Remains voluntary. Awaiting placement. Last updated by Lillie Franco DO at 07/30/22 23:46 Discharge Plan Disposition Condition: Serious Discharge Details Chief Complaint: PsychEval Clinical Impression: Bipolar disorder Primary Care Provider: Laron Smith ED Provider: [place] Home Meds and New Rx's Prescriptions: No Action quetiapine 25 mg tablet 25 mg PO QHS Qty: 60 1RF gabapentin 600 mg tablet 600 mg PO TID Patient Comments: TK 1 T PO TID trazodone 50 mg tablet 50 mg PO HS Patient Comments: TK 1 T PO HS lamotrigine [Lamictal] 100 mg tablet 100 mg PO BID Patient Comments: Take 1 tablet by mouth twice a day
[2022-07-31] MEDS: Nicotine 4 MG GUM CH (09:33)
--- NOTE | 2022-07-31 12:30 | NUR.NOTE ---
Assumed Care of Pt at 1000, FPJ
--- NOTE | 2022-07-31 13:56 | CMSP_ITS ---
- If Service Date Differs Date of service: 07/31/22 Time of Service: 13:56 Care Management Safety Plan Status: Voluntary - Reason for Wait Reason for Wait: Inpatient Admission CHIEF COMPLAINT: Skyler is a 22 year old young man who presents to the [facility] ED on 07/27/22 accompanied by VSP. He receives services through the [facility] PROFESSOR OF ART HISTORY program and has a diagnosis of Bipolar Disorder on record. Skyler is currently off of his meds as he doesn't like the way they make him feel. He presents as delusional and paranoid. He is currently denying SI/HI but threatened to harm himself prior to coming to [facility]. He is assessed by [facility] crisis screener, today, and continues to meet criteria for a voluntary inpatient psychiatric hospitalization. Referrals are fax[facility] to [facility], [facility], [facility] and [facility] for review. There are no available beds currently. Skyler will remain at [facility] voluntarily and will be reassessed daily by [facility] until a placement can be secured for him. VOLUNTARY FOR INPATIENT PSYCHIATRIC STABILIZATION. Patient is appropriate in all interactions since arriving at [facility]; Pt has demonstrated appropriate coping and communication skills, has articulated his or her needs and concerns and is fully engaged during staff interactions. Safety plan has been established with patient, and care team, to adhere to patient goals, identify restrictions based on behavioral status, address nutrition, and determine allowed personal belongings, tools for hygiene and personal care. Determine level of activity including ambulation, level of supervision, visitors, and determine privileges based on behaviors and level of engagement by pt. SAFETY PLAN: 1. Will remain on suicide precautions. In Paper Clothes. 2. Will remain in room under direct supervision of one-on-one staff at all times provided by [employer], BLOWER BLAST FURNACE, MIXER LEVER OPERATOR scoop machine operator. 3. May have paper cups, plates, finger foods as well as a cardboard spoon with which to eat meals. 4. Follow [facility] Management of the Admitted Behavioral Health Patient policy. 5. Comfort bath system only, shower permitted with escort at RN discretion. 6. No personal belongings-soft items permitted at RN discretion. 7. Visitors-none at this time. 8. Activities: soft cart items, music tablet, television and other activities at RN discretion. 9. Bathroom privileges with escort in the ED, available in room without limitation on M/S. 10. Phone: no phone privileges at this time. 11. Due to VOLUNTARY status, if patient wishes to leave [facility], staff will contact [facility] Crisis Screener ([phone]) and On-Call Travel Med Surg Rn ([phone]) as soon as possible. In the event of elopement, notify [facility] Police ([phone]). Patient is currently voluntarily at [facility] and seeking inpatient admission when a bed becomes available. [facility] Frontline Electronics Hardware Design Engineer will continue seeking placement. Please contact the Spooler Operator Automatic Travel Med Surg Rn ([phone]) and [facility] Electronics Hardware Design Engineer ([phone]) for any needed changes in the Safety Plan. Safety plan has been provided to interdepartmental care team.
--- NOTE | 2022-07-31 13:56 | PDOC.CMSAFED ---
- If Service Date Differs Date of service: 07/31/22 Time of Service: 13:56 Care Management Safety Plan Status: Voluntary - Reason for Wait Reason for Wait: Inpatient Admission CHIEF COMPLAINT: Skyler is a 22 year old young man who presents to the [facility] ED on 07/27/22 accompanied by VSP. He receives services through the [facility] CHEMISTRY QUALITY CONTROL ANALYST program and has a diagnosis of Bipolar Disorder on record. Skyler is currently off of his meds as he doesn't like the way they make him feel. He presents as delusional and paranoid. He is currently denying SI/HI but threatened to harm himself prior to coming to [facility]. He is assessed by Anabel [facility] crisis screener, today, and continues to meet criteria for a voluntary inpatient psychiatric hospitalization. Referrals are faxed to [facility], [facility], [facility] and [facility] for review. There are no available beds currently. Skyler will remain at [facility] voluntarily and will be reassessed daily by [facility] until a placement can be secured for him. VOLUNTARY FOR INPATIENT PSYCHIATRIC STABILIZATION. Patient is appropriate in all interactions since arriving at [facility]; Pt has demonstrated appropriate coping and communication skills, has articulated his or her needs and concerns and is fully engaged during staff interactions. Safety plan has been established with patient, and care team, to adhere to patient goals, identify restrictions based on behavioral status, address nutrition, and determine allowed personal belongings, tools for hygiene and personal care. Determine level of activity including ambulation, level of supervision, visitors, and determine privileges based on behaviors and level of engagement by pt. SAFETY PLAN: 1. Will remain on suicide precautions. In Paper Clothes. 2. Will remain in room under direct supervision of one-on-one staff at all times provided by [employer], QUALITY SPECIALIST, MINES SAFETY ENGINEER postal service mail processor. 3. May have paper cups, plates, finger foods as well as a cardboard spoon with which to eat meals. 4. Follow [facility] Management of the Admitted Behavioral Health Patient policy. 5. Comfort bath system only, shower permitted with escort at RN discretion. 6. No personal belongings-soft items permitted at RN discretion. 7. Visitors-none at this time. 8. Activities: soft cart items, music tablet, television and other activities at RN discretion. 9. Bathroom privileges with escort in the ED, available in room without limitation on M/S. 10. Phone: no phone privileges at this time. 11. Due to VOLUNTARY status, if patient wishes to leave [facility], staff will contact [facility] Crisis Screener ([phone]) and On-Call Glass Cylinder Flanger ([phone]) as soon as possible. In the event of elopement, notify [facility] Police ([phone]). Patient is currently voluntarily at [facility] and seeking inpatient admission when a bed becomes available. [facility] Frontline Certified Surgical First Assistant will continue seeking placement. Please contact the Special Education Case Manager Glass Cylinder Flanger ([phone]) and [facility] Certified Surgical First Assistant ([phone]) for any needed changes in the Safety Plan. Safety plan has been provided to interdepartmental care team.
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
[2022-08-01 06:29] VITALS: BP 141/79; PULSE 90; RESP 18; TEMP 36.7; O2SAT 98
[2022-08-01] MEDS: Nicotine 4 MG GUM CH (08:11)
--- NOTE | 2022-08-01 08:31 | W.EDPROG ---
Date of service: 08/01/22 Time of Service: 12:24 Medical Decision Making Medical Records Medical records narrative: I received signout on this medically cleared 22-year-old patient awaiting voluntary placement. No active behavioral issues last shift. We will update documentation as clinically warranted. 10:30 AM I spoke with Anabel from [facility] services. She felt that the patient was at baseline. Patient reportedly was concerned about housing. When Anabel mentioned that we could not hold him in the emergency department in the setting of his housing insecurity he reported becoming suicidal. Anabel reports that she has known the patient in the past and that he is at his baseline. Will reassess. 12:22 PM I met with patient and he felt comfortable with plan for discharge. Patient states that he will return to the emergency department if he does not feel safe with this plan. He is calling community resources in an attempt to secure housing. Patient has been refusing medications in the emergency department. He has been connected with local resources. Sign Out Sign Out Data: Sign Out Comment: Care transition to Dr. Alves with bed placement pending. Patient is currently voluntarily seeking treatment for suicidal homicidal ideations. However, if patient was to decide that he wanted to leave, concerned that he does not have capacity to do so, as risk to himself as well as others and patient may need to be involuntarily admitted. He is medically cleared. Refusing medications. Has been evaluated by . Last updated by Wendy Lopez PA at 07/27/22 22:32 Sign Out Comment: Patient with hx of bipolar and has si, flight of ideas. Voluntary currently Last updated by Braxton Alves MD at 07/28/22 00:40 Sign Out Comment: hx of bipolar, flight of ideas, is currently voluntary Last updated by Braxton Alves MD at 07/28/22 23:57 Sign Out Comment: History of bipolar, flight of ideas, hyperreligiosity. Stable throughout the day. Refused any medications. Awaiting placement Last updated by Calvin Barrientos DO at 07/29/22 19:34 Sign Out Comment: still pending transfer, no issues overnight Last updated by Braxton Alves MD at 07/30/22 00:45 Sign Out Comment: Patient quite talkative today, flight of ideas, standing in doorway the entire shift talking to [employer]. Had a couple outbursts in which he punched the wall but able to be redirected. Remains voluntary. Awaiting placement. Last updated by Lillie Franco DO at 07/30/22 23:46 Sign Out Comment: This is a voluntary patient signed out to the oncoming overnight provider. He is awaiting placement. Last updated by Von Leigh MD at 07/31/22 20:12 Sign Out Comment: Stable overnight, awaits placement Last updated by León Ruth MD at 08/01/22 06:46 Discharge Plan Disposition Patient Disposition: Home Condition: Stable Discharge Details Clinical Impression: Bipolar disorder Primary Care Provider: Laron Smith ED Provider: Von Leigh Home Meds and New Rx's Prescriptions: No Action quetiapine 25 mg tablet 25 mg PO QHS Qty: 60 1RF gabapentin 600 mg tablet 600 mg PO TID Patient Comments: TK 1 T PO TID trazodone 50 mg tablet 50 mg PO HS Patient Comments: TK 1 T PO HS lamotrigine [Lamictal] 100 mg tablet 100 mg PO BID Patient Comments: Take 1 tablet by mouth twice a day Discharge Instructions Additional Instructions: You were seen in the emergency department with your thoughts of self-harm. You have been cleared by crisis clinicians. If you do not feel safe once you are discharged please return to the department. Please continue taking your oral medications as previously scheduled.
--- NOTE | 2022-08-01 08:33 | NUR.NOTE ---
Nursing Note: Cash Management Specialist spoke with Sandra at [facility]. She stated that they will not take the patient as he is not being compliant with taking medication. Cash Management Specialist called Care management to work on next steps for patient.
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
--- NOTE | 2022-08-01 13:29 | CMPROGNOTE_ITS ---
- If Service Date Differs Date of service: 08/01/22 Time of Service: 13:29 Care Management Progress Note DISPOSITION: Skyler is reassessed by Anabel [facility] Crisis Screener, and is found to be back at baseline and to no longer meet criteria for a psychiatric hospitalization. Skyler is discharged from the ED to the community. He is provided with contact information for [facility] so he can obtain a motel voucher as he is currently homeless. Once the voucher is obtained, CM will arrange transport via [facility]. - MH Services (Omit if N/A) Current MH Services: [facility]
== END 2022-08-01 13:07 | disposition home or self-care (01) ==
PROVIDERS: Physician Assistant; Emergency Provider Emergency Medicine; PCP Family Medicine
DX: F31.9 Bipolar disorder, unspecified (principal); F91.9 Conduct disorder, unspecified; R45.851 Suicidal ideations
CPT/HCPCS: 80053; 80307; 99285; H0046; 80320; 80329; 81003; 84443; 85025; 99284

== ENCOUNTER 2023-08-03 22:21 | Emergency (ER) | payer MEDICAID, SELFPAY ==
[2023-08-03 22:19] VITALS: BP 170/95; PULSE 120; RESP 16; TEMP 36.5; O2SAT 97
[2023-08-03] MEDS: LORazepam 1 MG TAB 2 MG PO (22:41)
[2023-08-03] MEDS: Midazolam 5 MG/5 ML VIAL (23:00)
[2023-08-03] MEDS: Water,Injection,Sterile 10 ML VIAL (23:00)
[2023-08-03] MEDS: OLANZapine 10 MG VIAL (23:00)
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
[2023-08-03 23:36] LABS: Abs Immature Grans 0.06 10^3/uL (0.0-0.06); Absolute Basophil Count 0.14 10^3/uL (0.0-0.2); Absolute Eosinophil Count 0.53 10^3/uL (0.0-0.7); Absolute Lymphocyte Count 1.85 10^3/uL (1.2-3.4); Basophils % 1.1; HGB 13.8 g/dL (13.5-17.5); Immature Grans % 0.5; Lymphocytes % 14.1; MCH 31.2 pg (27.0-33.0); MCHC 34.5 % (32.0-36.0); MCV 91 fL (80-95); MPV 9.2 fL (8.0-11.0); Neutrophils % 75.3; Platelet Count 315 10^3/uL (130-400); RBC 4.42 10^6/uL (4.36-5.78); RDW-SD 40.3 fL; WBC 13.13 10^3/uL (4.4-10.8)
[2023-08-03 23:40] LABS: Absolute Monocyte Count 0.66 10^3/uL (0.1-0.8); Absolute Neutrophil Count 9.89 10^3/uL (1.2-6.7)
[2023-08-03 23:55] LABS: ALT 15 U/L (16-63); AST 11 U/L (15-37); Albumin 4.1 g/dL (3.4-5.0); Alkaline Phosphatase 75 U/L (46-116); Anion Gap 11.9 mmol/L (3-11); BUN 9 mg/dL (7-18); Bilirubin, Total 0.4 mg/dL (0.2-1.0); CO2 24.1 mmol/L (21.0-32.0); CREATININE 0.9 mg/dL (0.70-1.30); Calcium 8.9 mg/dL (8.5-10.1); Chloride 102 mmol/L (98-107); Estimated GFR 123.07 (mL/min/1.73m2); Glucose 159 mg/dL (74-106); Potassium 3.3 mmol/L (3.5-5.1); Sodium 138 mmol/L (136-145); Total Protein 7.1 g/dL (6.4-8.2)
[2023-08-04 00:06] VITALS: BP 91/55; PULSE 92; RESP 16; O2SAT 96
[2023-08-04 00:53] VITALS: BP 109/83; PULSE 88; RESP 16; O2SAT 95
[2023-08-04 03:48] VITALS: PULSE 66; RESP 16; O2SAT 96
[2023-08-04 04:18] VITALS: PULSE 87; O2SAT 98
[2023-08-04 04:45] LABS: *AMPHETAMINES SCREEN URINE Negative (Negative); *BARBITURATES SCREEN URINE Negative (Negative); *BENZODIAZEPINES SCREEN URINE Positive (Negative); Cannabinoids THC Positive (Negative); Cocaine Screen,Urine Negative (Negative); METHADONE URINE SCREEN Negative (Negative); OPIATES URINE SCREEN Negative (Negative)
[2023-08-04 04:47] LABS: Tricyclic Antidepressants Negative (Negative)
[2023-08-04 04:58] VITALS: PULSE 83; O2SAT 96
[2023-08-04 06:17] VITALS: PULSE 60; RESP 16; O2SAT 96
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
[2023-08-04] MEDS: Potassium Chloride 20 MEQ TABCR 40 MEQ PO (10:04)
[2023-08-04] MEDS: Nicotine 4 MG LOZG SUC ×5 (10:32→19:04)
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
--- NOTE | 2023-08-04 16:29 | CMSP_ITS ---
Date of service: 08/04/23 Time of Service: 16:29 Care Management Safety Plan Status Status: Involuntary Reason for Wait Reason for Wait: Inpatient Admission Safety Plan Safety Plan: Safety plan has been established to meet the needs of the patient, and consideration of the care team, to adhere to patient goals, identify restrictions based on behavioral status, address nutrition, and determine allowed personal belongings, tools for hygiene and personal care. Determine level of activity including ambulation, level of supervision, visitors, and determine privileges based on behaviors and level of engagement by pt. SAFETY PLAN: 1. Will remain on SI/HI precautions. In Paper Clothes 2. Will remain in room under direct supervision of one-on-one staff at all times provided by [employer]; HERI, OIL DIPPER factory hand. 3. May have paper cups, plates, finger foods as well as a cardboard spoon 4. Follow [facility] Management of the Admitted Behavioral Health Patient policy. 5. Comfort bath system only. 6. No personal belongings 7. Visitors: none at this time 8. Activities: may have soft items from activity cart at RN discretion 9. ?Bathroom privileges with supervision 10. Phone: None at this time 11. Due to INVOLUNTARY status, patient is being held at [facility] by the Department of Mental Health ([facility]) until 2nd certification by [facility] Psychiatrist can be performed (within 24 hours). Staff will provide de-escalation support (CPI) as needed. If patient wishes to leave [facility], staff will contact [facility] Crisis Screener ([phone]) and On-Call Proposal Rep ([phone]) as soon as possible. In the event of elopement, notify [place] [employer] ([phone]). Patient is currently involuntarily at [facility]. [facility] Frontline Rn Surgery will continue seeking placement. Please contact the Compress Trucker Proposal Rep ([phone]) for any needed changes to Safety Plan. Safety plan has been provided to interdepartmental care team. Patient will be transported by [employer] at time of discharge.
--- NOTE | 2023-08-04 16:29 | PDOC.CMSAFE ---
Date of service: 08/04/23 Time of Service: 16:29 Care Management Safety Plan Status Status: Involuntary Reason for Wait Reason for Wait: Inpatient Admission Safety Plan Safety Plan: Safety plan has been established to meet the needs of the patient, and consideration of the care team, to adhere to patient goals, identify restrictions based on behavioral status, address nutrition, and determine allowed personal belongings, tools for hygiene and personal care. Determine level of activity including ambulation, level of supervision, visitors, and determine privileges based on behaviors and level of engagement by pt. SAFETY PLAN: 1. Will remain on SI/HI precautions. In Paper Clothes 2. Will remain in room under direct supervision of one-on-one staff at all times provided by [employer]; HERI, SLIP LASTER floor technician. 3. May have paper cups, plates, finger foods as well as a cardboard spoon 4. Follow [facility] Management of the Admitted Behavioral Health Patient policy. 5. Comfort bath system only. 6. No personal belongings 7. Visitors: none at this time 8. Activities: may have soft items from activity cart at RN discretion 9. ?Bathroom privileges with supervision 10. Phone: None at this time 11. Due to INVOLUNTARY status, patient is being held at [facility] by the Department of Mental Health ([facility]) until 2nd certification by [facility] Psychiatrist can be performed (within 24 hours). Staff will provide de-escalation support (CPI) as needed. If patient wishes to leave [facility], staff will contact [facility] Crisis Screener ([phone]) and On-Call Chief Lifestyle Officer ([phone]) as soon as possible. In the event of elopement, notify [place] [employer] ([phone]). Patient is currently involuntarily at [facility]. [facility] Frontline Bleach Boiler Puller will continue seeking placement. Please contact the Reliability Technicians Chief Lifestyle Officer ([phone]) for any needed changes to Safety Plan. Safety plan has been provided to interdepartmental care team. Patient will be transported by [employer] at time of discharge.
--- NOTE | 2023-08-04 19:24 | W.EDPROG ---
Date of service: 08/04/23 Time of Service: 19:24 Medical Decision Making Patient currently [place] with second certification granted boarding in the emergency department pending inpatient psychiatric placement. After change of shift, patient sitter is now a petite woman of color and the patient seems to be highly agitated by this. He is displaying aggressive behavior towards her. Given this, a B-52 has been ordered for sedation. Since that time, the patient has been sleeping comfortably in his room. Medical Records Medical records reviewed: Yes I reviewed the patient's medical records. Quality:SDOH Health Related Social Needs: No Data to Display Sign Out Sign Out Data: Sign Out Comment: 23yo M, medically cleared, EE, psychosis/agitation/delusions/SI. Involuntary medication 10mg olanzapine 5mg versed at ~midnight; since then calm, mostly sleeping. Pending [facility], 2nd cert, placement. Needs med rec when participatory in history. Last updated by Lexus Duff MD at 08/04/23 04:53 Sign Out Comment: On EE status pending second CERT, did have a code redd earlier but was verbally de-escalated. Is bipolar and currently manic Last updated by Braxton Alves MD at 08/04/23 15:42 Sign Out Comment: EE, 2nd cert granted Has been very agitated, manic throughout the day. Day shift sitter ( Braxton, RN ) was able to keep him redirected and in the room, but still incredibly tangential, hostile, delusional speech. At shift change significantly escalated with new sitter (female, POC) and was verbally abusive and escalating. B52 was given and since patient has been resting calmly in room with lights off and door closed. Last updated by Darius Heard MD at 08/04/23 21:42 Discharge Plan Discharge Details Chief Complaint: PsychEval Primary Care Provider: Laron Smith ED Provider: Darius Heard Home Meds and New Rx's Prescriptions: No Action quetiapine 25 mg tablet 25 mg PO QHS Qty: 60 1RF olanzapine 10 mg tablet 10 mg PO BID Patient Comments: Pt endorses prescription, states I'm not taking it. gabapentin 600 mg tablet 600 mg PO TID Patient Comments: TK 1 T PO TID trazodone 50 mg tablet 50 mg PO HS Patient Comments: TK 1 T PO HS lamotrigine [Lamictal] 100 mg tablet 100 mg PO BID Patient Comments: Take 1 tablet by mouth twice a day
[2023-08-04] MEDS: Haloperidol 5 MG/ML VIAL IM (19:38)
[2023-08-04] MEDS: LORazepam 2 MG/ML VIAL IM (19:38)
[2023-08-04] MEDS: diphenhydrAMINE 50 MG/ML VIAL IM (19:38)
--- NOTE | 2023-08-05 00:02 | W.EDPROG ---
Date of service: 08/04/23 Time of Service: 23:30 Medical Decision Making This patient was signed out to me. Please see previous notes for H&P and initial eval. In brief, 23yo M presenting with psychosis, medically cleared, EEd and 2nd cert completed. Pending placement. Overnight appeared to be sleeping comfortably. No acute behavioral events. Did not wake patient for evaluation. Signed out to oncoming physician, plan remains as above. Quality:SDOH Health Related Social Needs: No Data to Display Sign Out Sign Out Data: Sign Out Comment: 23yo M, medically cleared, EE, psychosis/agitation/delusions/SI. Involuntary medication 10mg olanzapine 5mg versed at ~midnight; since then calm, mostly sleeping. Pending [facility], 2nd cert, placement. Needs med rec when participatory in history. Last updated by Lexus Duff MD at 08/04/23 04:53 Sign Out Comment: On EE status pending second CERT, did have a code redd earlier but was verbally de-escalated. Is bipolar and currently manic Last updated by Braxton Alves MD at 08/04/23 15:42 Sign Out Comment: EE, 2nd cert granted Has been very agitated, manic throughout the day. Day shift sitter ( Braxton, RN ) was able to keep him redirected and in the room, but still incredibly tangential, hostile, delusional speech. At shift change significantly escalated with new sitter (female, POC) and was verbally abusive and escalating. B52 was given and since patient has been resting calmly in room with lights off and door closed. Last updated by Darius Heard MD at 08/04/23 21:42 Sign Out Comment: 23M bipolar/hayder/psychosis, EE, 2nd cert done. B52 evening shift. Appeared to sleep overnight, no acute events. Last updated by Lexus Duff MD at 08/05/23 06:11 Discharge Plan Discharge Details Chief Complaint: PsychEval Primary Care Provider: Laron Smith ED Provider: Lexus Duff Home Meds and New Rx's Prescriptions: No Action quetiapine 25 mg tablet 25 mg PO QHS Qty: 60 1RF olanzapine 10 mg tablet 10 mg PO BID Patient Comments: Pt endorses prescription, states I'm not taking it. gabapentin 600 mg tablet 600 mg PO TID Patient Comments: TK 1 T PO TID trazodone 50 mg tablet 50 mg PO HS Patient Comments: TK 1 T PO HS lamotrigine [Lamictal] 100 mg tablet 100 mg PO BID Patient Comments: Take 1 tablet by mouth twice a day
--- NOTE | 2023-08-05 07:16 | W.EDPROG ---
Date of service: 08/05/23 Time of Service: 07:16 Medical Decision Making I received signout on this 23-year-old male with history of bipolar, hayder, psychosis currently on an involuntary hold. Yesterday evening patient received 5 mg of intramuscular haloperidol and 2 mg of lorazepam. He slept overnight with no acute events. Will update documentation as clinically warranted and signed patient out to the oncoming evening provider. 5:12 PM Patient was agitated throughout shift but was able to be verbally redirected. He refused all of his medications. Quality:[place] Health Related Social Needs: No Data to Display Sign Out Sign Out Data: Sign Out Comment: 23yo M, medically cleared, EE, psychosis/agitation/delusions/SI. Involuntary medication 10mg olanzapine 5mg versed at ~midnight; since then calm, mostly sleeping. Pending [facility], 2nd cert, placement. Needs med rec when participatory in history. Last updated by Lexus Duff MD at 08/04/23 04:53 Sign Out Comment: On EE status pending second CERT, did have a code redd earlier but was verbally de-escalated. Is bipolar and currently manic Last updated by Braxton Alves MD at 08/04/23 15:42 Sign Out Comment: EE, 2nd cert granted Has been very agitated, manic throughout the day. Day shift sitter ( Braxton, RN ) was able to keep him redirected and in the room, but still incredibly tangential, hostile, delusional speech. At shift change significantly escalated with new sitter (female, POC) and was verbally abusive and escalating. B52 was given and since patient has been resting calmly in room with lights off and door closed. Last updated by Darius Heard MD at 08/04/23 21:42 Sign Out Comment: 23M bipolar/hayder/psychosis, EE, 2nd cert done. B52 evening shift. Appeared to sleep overnight, no acute events. Last updated by Lexus Duff MD at 08/05/23 06:11 Discharge Plan Discharge Details Chief Complaint: PsychEval Primary Care Provider: Laron Smith ED Provider: Von [place] Home Meds and New Rx's Prescriptions: No Action quetiapine 25 mg tablet 25 mg PO QHS Qty: 60 1RF olanzapine 10 mg tablet 10 mg PO BID Patient Comments: Pt endorses prescription, states I'm not taking it. gabapentin 600 mg tablet 600 mg PO TID Patient Comments: TK 1 T PO TID trazodone 50 mg tablet 50 mg PO HS Patient Comments: TK 1 T PO HS lamotrigine [Lamictal] 100 mg tablet 100 mg PO BID Patient Comments: Take 1 tablet by mouth twice a day
[2023-08-05] MEDS: Nicotine 4 MG LOZG SUC ×4 (09:58→18:25)
[2023-08-05 10:54] VITALS: BP 138/91; PULSE 118; RESP 18; TEMP 36.8; O2SAT 99
--- NOTE | 2023-08-05 12:17 | CMSP_ITS ---
Care Management Safety Plan Status Status: Involuntary Reason for Wait Reason for Wait: Inpatient Admission Safety Plan Safety Plan: INVOLUNTARY FOR INPATIENT PSYCHIATRIC STABILIZATION.? Safety plan has been established with patient, and care team, to adhere to patient goals, identify restrictions based on behavioral status, address nutrition, and determine allowed personal belongings, tools for hygiene and personal care. Determine level of activity including ambulation, level of supervision, visitors, and determine privileges based on behaviors and level of engagement by ptSukhdeep Holland remains in Main ED in Room 9 with [employer] support. He is listening to music and has reportedly required support, and boundary setting related to verbal aggression. Per Vania [facility], Skyler's referral has been declined by all facilities related to being too acute for their milieu. He continues to await placement. SAFETY PLAN: 1. Will remain on suicide precautions, in paper clothes 2. Will remain in Zone B under direct supervision of one-on-one staff at all times provided by [employer]; HERI, BUSINESS ANALYTICS SPECIALIST animal control supervisor. 3. May have paper cups, plates, finger foods as well as a cardboard spoon with which to eat meals. 4. Follow [facility] Management of the Admitted Behavioral Health Patient policy. 5. Shower available in Zone B without restriction. 6. Personal belongings-soft items permitted at RN discretion. 7. Visitors-none at this time. 8. Activities: soft cart items approved per RN discretion. 9.? Bathroom available in Zone B without restriction. 10. Phone: limited to [facility] cordless phone at RN discretion. Due to INVOLUNTARY status, patient is being held at [facility] by the Department of Mental Health ([facility]) until 2nd certification by [facility] Psychiatrist can be performed (within 24 hours). Staff will provide de-escalation support as needed. If patient wishes to leave [facility], staff will contact [facility] Crisis Screener ([phone]) and Material Damage Appraiser ([phone]) as soon as possible. In the event of elopement, notify [place] [employer] ([phone]). Patient is currently involuntarily at [facility]. [facility] Frontline Reformatory Attendant will continue seeking placement. Please contact the Material Damage Appraiser for any needed changes to Safety Plan. Safety plan has been provided to interdepartmental care team. Patient will be transported by med specialist at time of discharge.
--- NOTE | 2023-08-05 12:17 | PDOC.CMSAFE ---
Care Management Safety Plan Status Status: Involuntary Reason for Wait Reason for Wait: Inpatient Admission Safety Plan Safety Plan: INVOLUNTARY FOR INPATIENT PSYCHIATRIC STABILIZATION.? Safety plan has been established with patient, and care team, to adhere to patient goals, identify restrictions based on behavioral status, address nutrition, and determine allowed personal belongings, tools for hygiene and personal care. Determine level of activity including ambulation, level of supervision, visitors, and determine privileges based on behaviors and level of engagement by ptSukhdeep Holland remains in Main ED in Room 9 with CPSO support. He is listening to music and has reportedly required support, and boundary setting related to verbal aggression. Per Vania [facility], Skyler's referral has been declined by all facilities related to being too acute for their milieu. He continues to await placement. SAFETY PLAN: 1. Will remain on suicide precautions, in paper clothes 2. Will remain in Zone B under direct supervision of one-on-one staff at all times provided by [employer]; HERI, DEICER FINISHER laboratory chemist. 3. May have paper cups, plates, finger foods as well as a cardboard spoon with which to eat meals. 4. Follow [facility] Management of the Admitted Behavioral Health Patient policy. 5. Shower available in Zone B without restriction. 6. Personal belongings-soft items permitted at RN discretion. 7. Visitors-none at this time. 8. Activities: soft cart items approved per RN discretion. 9.? Bathroom available in Zone B without restriction. 10. Phone: limited to [facility] cordless phone at RN discretion. Due to INVOLUNTARY status, patient is being held at [facility] by the Department of Mental Health ([facility]) until 2nd certification by [facility] Psychiatrist can be performed (within 24 hours). Staff will provide de-escalation support as needed. If patient wishes to leave [facility], staff will contact [facility] Crisis Screener ([phone]) and Molder Hand ([phone]) as soon as possible. In the event of elopement, notify [place] [employer] ([phone]). Patient is currently involuntarily at [facility]. [facility] Frontline Yard Pilot will continue seeking placement. Please contact the Molder Hand for any needed changes to Safety Plan. Safety plan has been provided to interdepartmental care team. Patient will be transported by cad draftsman at time of discharge.
[2023-08-05] MEDS: OLANZapine 10 MG TAB PO (13:24)
[2023-08-05] MEDS: OLANZapine 10 MG VIAL IM (17:06)
[2023-08-05] MEDS: Water,Injection,Sterile 10 ML VIAL (17:23)
--- NOTE | 2023-08-05 20:51 | ED.PROG_ITS ---
Date of service: 08/05/23 Time of Service: 20:51 Medical Decision Making Patient still under EE with second certification. Pending placement. A doc to doc conversation was had with the psychiatrist at [facility]. The patient has been accepted for placement there. The physician concurs that the patient is generally undermedicated and that we can increase his injectable doses to help with his mood stabilization. Medications recommended including IM Zyprexa if refusing oral medications or IM Thorazine and Benadryl, 100 mg of each. Patient has been observed to be fairly stimulated throughout the day doing his meditative deep breathing exercises, speaking in tongues, having hyperreligious rounds, doing calisthenics and various fitness exercises. He is refusing oral antipsychotics other than the Zyprexa for some reason, but will not take risperidone or the Lamictal it has been ordered. Although the patient is not having violent outburst, he does need to be medicated for mood stabilization and if he refusing to take the oral medications, these medications will need to be given IM. As the patient is under an EE, he does not have a choice in this manner. Discussed with the [place] the psychiatric authority and arrange transport for the patient to [facility]. They are recommending that he go by [facility]'s department. Unfortunately this transportation could not be arranged tonight, but he will be able to go tomorrow and [facility] is holding his bed. This afternoon the patient received an IM dose of Zyprexa and has been resting comfortably and hopefully will sleep through the night. Quality:SDOH Health Related Social Needs: No Data to Display Sign Out Sign Out Data: Sign Out Comment: 23yo M, medically cleared, EE, psychosis/agitation/delusions/SI. Involuntary medication 10mg olanzapine 5mg versed at ~midnight; since then calm, mostly sleeping. Pending [facility], 2nd cert, placement. Needs med rec when participatory in history. Last updated by Lexus Duff MD at 08/04/23 04:53 Sign Out Comment: On EE status pending second CERT, did have a code redd earlier but was verbally de-escalated. Is bipolar and currently manic Last updated by Braxton Alves MD at 08/04/23 15:42 Sign Out Comment: EE, 2nd cert granted Has been very agitated, manic throughout the day. Day shift sitter ( Braxton, RN ) was able to keep him redirected and in the room, but still incredibly tangential, hostile, delusional speech. At shift change significantly escalated with new sitter (female, POC) and was verbally abusive and escalating. B52 was given and since patient has been resting calmly in room with lights off and door closed. Last updated by Darius Heard MD at 08/04/23 21:42 Sign Out Comment: 23M bipolar/hayder/psychosis, EE, 2nd cert done. B52 evening shift. Appeared to sleep overnight, no acute events. Last updated by Lexus Duff MD at 08/05/23 06:11 Sign Out Comment: Second certification on involuntary hold in setting of bipolar hayder and psychosis. Agitated throughout shift. Refusing medications. Last updated by Von Leigh MD at 08/05/23 17:13 Discharge Plan Discharge Details Chief Complaint: PsychEval Primary Care Provider: Laron Smith ED Provider: Darius Heard Home Meds and New Rx's Prescriptions: No Action quetiapine 25 mg tablet 25 mg PO QHS Qty: 60 1RF olanzapine 10 mg tablet 10 mg PO BID Patient Comments: Pt endorses prescription, states I'm not taking it. gabapentin 600 mg tablet 600 mg PO TID Patient Comments: TK 1 T PO TID trazodone 50 mg tablet 50 mg PO HS Patient Comments: TK 1 T PO HS lamotrigine [Lamictal] 100 mg tablet 100 mg PO BID Patient Comments: Take 1 tablet by mouth twice a day
--- NOTE | 2023-08-05 22:59 | W.EDPROG ---
Date of service: 08/05/23 Time of Service: 23:00 Medical Decision Making Patient signed out to me pending transfer to [facility] which will happen tomorrow per Dr. Heard. Currently calm and resting in bed we will continue to monitor until transport is available. Quality:SDOH Health Related Social Needs: No Data to Display Sign Out Sign Out Data: Sign Out Comment: 23yo M, medically cleared, EE, psychosis/agitation/delusions/SI. Involuntary medication 10mg olanzapine 5mg versed at ~midnight; since then calm, mostly sleeping. Pending [facility], 2nd cert, placement. Needs med rec when participatory in history. Last updated by Lexus Duff MD at 08/04/23 04:53 Sign Out Comment: On EE status pending second CERT, did have a code redd earlier but was verbally de-escalated. Is bipolar and currently manic Last updated by Braxton Alves MD at 08/04/23 15:42 Sign Out Comment: EE, 2nd cert granted Has been very agitated, manic throughout the day. Day shift sitter ( Braxton, RN ) was able to keep him redirected and in the room, but still incredibly tangential, hostile, delusional speech. At shift change significantly escalated with new sitter (female, POC) and was verbally abusive and escalating. B52 was given and since patient has been resting calmly in room with lights off and door closed. Last updated by Darius Heard MD at 08/04/23 21:42 Sign Out Comment: 23M bipolar/hayder/psychosis, EE, 2nd cert done. B52 evening shift. Appeared to sleep overnight, no acute events. Last updated by Lexus Duff MD at 08/05/23 06:11 Sign Out Comment: Second certification on involuntary hold in setting of bipolar hayder and psychosis. Agitated throughout shift. Refusing medications. Last updated by Von Leigh MD at 08/05/23 17:13 Sign Out Comment: 23y M with acute psychosis, hayder EE with 2nd cert ACCEPTED AT [facility] arranging transportation with [facility]'s department . they weren't able to come tonight but should call in the morning with the time that we can expect them. I did Tia with psychiatrist at who advises that the patient is undermedicated and is recommending that we increase medication and use IM if the patient is refusing orals. has recommended medicating patient prior to transport for everyone's safety, either B52 or 100mg thorazine +100mg benadryl IM Many issues throughout the shift: - patient very manic- constant speech, hyper episcopal, drawing, speaking in tongues, doing exercises. - has been taking the oral zyprexa, but refused the lamictal. was going to try risperidone but he also refused this. could try IM risperdol He got a dose of IM zyprexa and has been sleeping since. - escalates with women and POC. - Recommend keeping door closed if possible to decrease stimulation and agitation Last updated by Darius Heard MD at 08/05/23 22:51 Discharge Plan Discharge Details Chief Complaint: PsychEval Primary Care Provider: Laron Smith ED Provider: Braxton Alves Home Meds and New Rx's Prescriptions: No Action quetiapine 25 mg tablet 25 mg PO QHS Qty: 60 1RF olanzapine 10 mg tablet 10 mg PO BID Patient Comments: Pt endorses prescription, states I'm not taking it. gabapentin 600 mg tablet 600 mg PO TID Patient Comments: TK 1 T PO TID trazodone 50 mg tablet 50 mg PO HS Patient Comments: TK 1 T PO HS lamotrigine [Lamictal] 100 mg tablet 100 mg PO BID Patient Comments: Take 1 tablet by mouth twice a day
--- NOTE | 2023-08-05 23:17 | NUR.NOTE ---
Pt has been sleeping since 1999 and has not yet had his oral medications, FPJ
[2023-08-06] MEDS: Nicotine 4 MG LOZG SUC ×3 (08:17→15:48)
--- NOTE | 2023-08-06 16:11 | W.EDPROG ---
Date of service: 08/06/23 Time of Service: 16:11 Medical Decision Making 7:00 --care signed out by Dr. Alves, please see his documentation of prior ED documentation regarding initial ED presentation and course. Patient awaiting transfer to [facility]. Doc to doc was already performed yesterday. Unfortunately transportation services were not available to transport the patient yesterday. 16:12 -- Patient has remained here on EE hold awaiting transportation. He continues to exhibit psychosis with flight of ideas. He has been cooperative during my shift today. Transportation has been arranged and he will be transported to [facility] shortly. Quality:SDOH Health Related Social Needs: No Data to Display Sign Out Sign Out Data: Sign Out Comment: 23yo M, medically cleared, EE, psychosis/agitation/delusions/SI. Involuntary medication 10mg olanzapine 5mg versed at ~midnight; since then calm, mostly sleeping. Pending NK, 2nd cert, placement. Needs med rec when participatory in history. Last updated by Lexus Duff MD at 08/04/23 04:53 Sign Out Comment: On EE status pending second CERT, did have a code redd earlier but was verbally de-escalated. Is bipolar and currently manic Last updated by Braxton Alves MD at 08/04/23 15:42 Sign Out Comment: EE, 2nd cert granted Has been very agitated, manic throughout the day. Day shift sitter ( Braxton, RN ) was able to keep him redirected and in the room, but still incredibly tangential, hostile, delusional speech. At shift change significantly escalated with new sitter (female, POC) and was verbally abusive and escalating. B52 was given and since patient has been resting calmly in room with lights off and door closed. Last updated by Darius Heard MD at 08/04/23 21:42 Sign Out Comment: 23M bipolar/hayder/psychosis, EE, 2nd cert done. B52 evening shift. Appeared to sleep overnight, no acute events. Last updated by Lexus Duff MD at 08/05/23 06:11 Sign Out Comment: Second certification on involuntary hold in setting of bipolar hayder and psychosis. Agitated throughout shift. Refusing medications. Last updated by Von Leigh MD at 08/05/23 17:13 Sign Out Comment: 23y M with acute psychosis, hayder EE with 2nd cert ACCEPTED AT [facility] State arranging transportation with [facility]'s department . they weren't able to come tonight but should call in the morning with the time that we can expect them. I did Tia with psychiatrist at who advises that the patient is undermedicated and is recommending that we increase medication and use IM if the patient is refusing orals. Dr has recommended medicating patient prior to transport for everyone's safety, either B52 or 100mg thorazine +100mg benadryl IM Many issues throughout the shift: - patient very manic- constant speech, hyper voodoo, drawing, speaking in tongues, doing exercises. - has been taking the oral zyprexa, but refused the lamictal. was going to try risperidone but he also refused this. could try IM risperdol He got a dose of IM zyprexa and has been sleeping since. - escalates with women and POC. - Recommend keeping door closed if possible to decrease stimulation and agitation Last updated by Darius Heard MD at 08/05/23 22:51 Sign Out Comment: Patient on EE status for hayder. No issues during my shift. Per signout from Dr. Heard has been accepted to [facility] but they were unable to obtain transport during shift yesterday. Per her conversation with psychiatrist at [facility] they recommended IM medication if patient refuses oral medication. They also did recommend administering either 100 mg of Thorazine with with Benadryl IM, or Haldol/Ativan/Benadryl IM prior to transport Last updated by Braxton Alves MD at 08/05/23 23:04 Discharge Plan Disposition Patient Disposition: Psychiatric Hospital/Unit Specific Psychiatric Facility: [facility] Condition: Serious Discharge Details Clinical Impression: Acute psychosis Primary Care Provider: Laron mSith ED Provider: Marty Alves Home Meds and New Rx's Prescriptions: No Action quetiapine 25 mg tablet 25 mg PO QHS Qty: 60 1RF olanzapine 10 mg tablet 10 mg PO BID Patient Comments: Pt endorses prescription, states I'm not taking it. gabapentin 600 mg tablet 600 mg PO TID Patient Comments: TK 1 T PO TID trazodone 50 mg tablet 50 mg PO HS Patient Comments: TK 1 T PO HS lamotrigine [Lamictal] 100 mg tablet 100 mg PO BID Patient Comments: Take 1 tablet by mouth twice a day Discharge Data Discharge Date/Time-TO BE ENTERED AT DEPARTURE: 08/06/23 18:01
== END 2023-08-06 18:01 ==
PROVIDERS: Student in an Organized Health Care Education/Training Program; Emergency Provider Student in an Organized Health Care Education/Training Program; PCP Family Medicine
DX: F31.2 Bipolar disorder, current episode manic severe with psychotic features (principal); F41.0 Panic disorder [episodic paroxysmal anxiety]; R45.851 Suicidal ideations
CPT/HCPCS: 00123; 80053; 80307; 96127; 96374; 96375; 99285; 99291; 85025; J1200; J1630; J2060; J2250; J2359

== ENCOUNTER 2023-10-28 12:47 | Emergency (ER) | payer MEDICAID, SELFPAY ==
[2023-10-28 12:40] VITALS: BP 119/79; PULSE 91; RESP 12; TEMP 37.6; O2SAT 95
--- NOTE | 2023-10-28 13:44 | ED.GENADUL_ITS ---
Discharge Plan Discharge Details Chief Complaint: PsychEval Primary Care Provider: Laron Smith ED Provider: Marty Alves Home Meds and New Rx's Prescriptions: No Action quetiapine 25 mg tablet 25 mg PO QHS Qty: 60 1RF olanzapine 10 mg tablet 10 mg PO BID Patient Comments: Pt endorses prescription, states I'm not taking it. lithium carbonate 300 mg tablet extended release 600 mg PO QHS Patient Comments: TAKE 2 TABLETS BY MOUTH AT BEDTIME nicotine (polacrilex) 4 mg gum 4 mg PO Q2H Patient Comments: CHEW 1 PIECE OF GUM BY MOUTH EVERY 2 HOURS NEEDED gabapentin 600 mg tablet 600 mg PO TID Patient Comments: TK 1 T PO TID trazodone 50 mg tablet 50 mg PO HS Patient Comments: TK 1 T PO HS lamotrigine [Lamictal] 100 mg tablet 100 mg PO BID Patient Comments: Take 1 tablet by mouth twice a day HPI General Mode of arrival: EMS . Date/Time Provider Initiated Documentation: 10/28/23 12:56 . Limitations to Documentation: no limitations . Information obtained by: patient and EMS . HPI Narrative: 23-year-old male with history of bipolar disorder with severe hayder, personality disorder, sent by [facility] crisis screener for evaluation. Patient recently discharged from [facility] after prolonged hospitalization. Patient notes significant difficulty with social issues including difficulty establishing housing. Patient notes that rentals have not been available for him given his criminal history noted online. Patient states he seems like he has a lack of support. He feels trapped. He is feeling suicidal with no plan. Patient is here voluntarily today and requesting hospitalization back at [facility] -he notes he feels like this was a safe and supportive environment for him. Patient denies self-harm. No toxic ingestion. No drug or alcohol use. Patient has been taking medications as prescribed. Related Data Home Medications Medication Instructions Recorded Confirmed quetiapine 25 mg tablet 25 mg PO QHS #60 tabs 07/29/20 10/28/23 gabapentin 600 mg tablet 600 mg PO TID 01/13/21 10/28/23 lamotrigine 100 mg tablet 100 mg PO BID 01/13/21 10/28/23 (Lamictal) trazodone 50 mg tablet 50 mg PO HS 01/13/21 10/28/23 olanzapine 10 mg tablet 10 mg PO BID 08/04/23 10/28/23 lithium carbonate 300 mg 600 mg PO QHS 10/28/23 10/28/23 tablet,extended release nicotine (polacrilex) 4 mg gum 4 mg PO Q2H 10/28/23 10/28/23 Previous Rx's Medication Instructions Recorded quetiapine 25 mg tablet 25 mg PO QHS #60 tabs 07/29/20 Allergies Allergy/AdvReac Type Severity Reaction Status Date / Time ampicillin Allergy Skin Rash Verified 10/28/23 12:43 ampicillin sodium Allergy Skin Rash Verified 10/28/23 12:43 [From Unasyn] sulbactam sodium Allergy Skin Rash Verified 10/28/23 12:43 [From Unasyn] sulfamethoxazole Allergy Skin Rash Verified 10/28/23 12:43 [From Bactrim] trimethoprim [From Bactrim] Allergy Skin Rash Verified 10/28/23 12:43 acetaminophen [From Tylenol] AdvReac Intermediate head fog Verified 10/28/23 12:43 amitriptyline AdvReac Intermediate Agitation Verified 10/28/23 12:43 trazodone AdvReac Intermediate Agitation Verified 10/28/23 12:43 diphenhydramine AdvReac Other (See Verified 10/28/23 12:43 [From Benadryl] Comment) gluten AdvReac Other (See Unverified 10/28/23 12:43 Comment) General Stated Complaint: PsychEval RADHA: 2 Review of Systems Gastrointestinal Gastrointestinal: Denies abdominal pain Psychiatric Psychiatric: Reports as per HPI Exam Const General: cooperative and no acute distress [facility] Head: normocephalic and atraumatic Mouth: moist mucous membranes Eyes Conjunctivae: normal conjunctivae Sclera: normal sclerae Resp Auscultation: clear to auscultation bilaterally, no rales, no rhonchi and no wheezes Cardio Rate: regular rate and not tachycardic Rhythm: regular rhythm GI Palpation: soft, not firm, no guarding, no masses, not rigid and nontender Neuro General: patient alert, patient awake, patient oriented x3 and tone normal Extrem General: no edema Psych Appearance: grossly normal Mental Status: mental status grossly normal and other (depressed) Speech and Movement: speech clear Mood: other (depressed) Affect: blunted Attitude: cooperative Thought Content: suicidality Course Vital Signs Vital signs: Vital Signs Temperature 37.6 C 10/28/23 12:40 Pulse 91 H 10/28/23 12:40 Respiratory Rate 12 10/28/23 12:40 Blood Pressure 119/79 10/28/23 12:40 Pulse Oximetry 95 10/28/23 12:40 Temperature 37.6 C 10/28/23 12:40 Temperature Source Tympanic 10/28/23 12:40 Pulse 91 H 10/28/23 12:40 Respiratory Rate 12 10/28/23 12:40 Respiratory Effort Normal, Non-Labored 10/28/23 12:45 Blood Pressure 119/79 10/28/23 12:40 Blood Pressure Position Sitting 10/28/23 12:40 Pulse Oximetry 95 10/28/23 12:40 Oxygen Delivery Method Room Air 10/28/23 12:40 Oxygen Flow Rate 0 10/28/23 12:40 Pain Level 0 10/28/23 12:40 Medical Decision Making 1350 --23-year-old male with history of bipolar disorder, personality disorder, here with depression and thoughts of suicidality with no specific plan, recently discharged after prolonged hospitalization at [facility]. Patient has significant social stressors including difficulty establishing housing and lack of social support which are contributing to his presentation today. Patient is here voluntarily seeking treatment today. I have contacted [facility] human services crisis screener. Patient evaluated by crisis screener in the prehospital environment. They will come to the ED for continued evaluation. Patient is on lithium and I will check a lithium level. Otherwise patient medically screened and cleared for psychiatric treatment. 1513 -- Unclear medications the patient was discharged on. Awaiting lithium level with plan to continue with therapeutic and will also order olanzapine. Patient apparently is not taking gabapentin, Lamictal, quetiapine, or trazodone. Lab Data Lab results reviewed: Yes I reviewed the patient's lab results. Quality:SDOH Health Related Social Needs: No Data to Display PFSH All Active Problems Bipolar disorder with severe hayder (Acute) Mood disorder (Acute) Personality disorder (Acute) Cannabis use disorder, moderate, dependence (Acute) Malingering (Acute) Homicidal ideation (Acute) Depressed mood (Chronic) Medical History Anxiety Poor appetite Acne Encounter to establish care Drug abuse Primary insomnia Conduct disorder Suicidal ideation Surgical History S/P appendectomy (~06/17/10) Family History Father Substance abuse Depression Mother Anxiety Sister Anxiety Depression Social History Smoking/Tobacco Use Status: Current-Occasional Tobacco Type: cigars Tobacco: How many years used: 1 Smoking risk assessment performed?: Yes Alcohol Intake: current Alcohol Intake frequency: a few times a month Substance use type: marijuana and hallucinogens Details: marijuana today Adopted: No Caregiver/Support person: No Foster care: No Household members: none Housing: other Do you need help understanding health information?: Rarely current occupation: UnEmployed Sexually active: Yes Do you think of yourself as: straight/heterosexual Current gender identity: male Do you feel safe at home: No Do you feel safe in your relationship?: No Additional Social history: Pt currently living at a motel; felt terrified there 10/28/23
[2023-10-28] MEDS: Nicotine 2 MG GUM CH ×2 (15:21→17:41)
--- NOTE | 2023-10-28 15:40 | ED.PROG_ITS ---
Date of service: 10/28/23 Time of Service: 15:40 Medical Decision Making This dictation utilizes [id number] dictation software and may contain unedited grammatical errors. Patient seen in sign-out from Dr. Alves, please see his complete note. Essentially this 23 y/o M presents to ED today with a chief complaint of SI without a plan, some paranoia in the setting of BPD and Bipolar disorder. Recent in-patient stay at [facility], discharged about a week ago. Patient has some basic labs with [employer] level pending, some home medicines reconciled but updated Med. Recc. incoming from [facility]. Pending [facility] Evaluation for SI. [ ]. Patients' medical history: [ ]. Family and social history: [ ]. Pertinent exam findings / vital signs include anxious, states he is hearing voices, nontoxic vitals, benign cardiopulmonary status. Differential / pathologies of concern include psychosis, bipolar disorder, suicidal ideation. Diagnostic studies of: -Basic labs show no acute intervenable values, lithium level low, THC positive. -nonspecific leukocytosis. Interventions of: -Ordered his nightly lithium, added a 10 mg Zyprexa dose as he has not had 1 today. ED Course/Assessment/Plan: 23-year-old male presents hearing voices, paranoid, suicidal ideation without overt plan, had been seen by [facility] prior to arrival, he is voluntary at this time awaiting inpatient bed search. No acute events or outbursts in ED today. Resting comfortably. Signed out to Dr. Barrientos at shift-change. Voluntary pending placement. Findings not consistent with agitation. Disposition of suicidal ideation. Patient verbalized understanding of the plan and return to ED criteria and engaged in shared decision making. Medical Records Medical records reviewed: Yes I reviewed the patient's medical records. Lab Data Lab results reviewed: Yes I reviewed the patient's lab results. Labs: Laboratory Tests Range/Units 10/28/23 10/28/23 15:30 15:32 WBC (4.4-10.8) 10^3/uL 11.23 H RBC (4.36-5.78) 10^6/uL 4.72 Hgb (13.5-17.5) g/dL 14.9 Hct (40.0-50.0) % 44.1 MCV (80-95) fL 93 MCH (27.0-33.0) pg 31.6 MCHC (32.0-36.0) % 33.8 RDW (11.8-14.1) % 11.7 L Plt Count (130-400) 10^3/uL 324 MPV (8.0-11.0) fL 9.5 Immature Gran % % 0.4 Neutrophils % % 76.8 Lymphocytes % % 15.7 Monocytes % % 5.4 Eosinophils % % 1.1 Basophils % % 0.6 Nucleated RBC % (0.0-0.3) % 0.0 Absolute Neutrophils (1.2-6.7) 10^3/uL 8.62 H Absolute Lymphocytes (1.2-3.4) 10^3/uL 1.76 Absolute Monocytes (0.1-0.8) 10^3/uL 0.61 Absolute Eosinophils (0.0-0.7) 10^3/uL 0.12 Absolute Basophils (0.0-0.2) 10^3/uL 0.07 Sodium (136-145) mmol/L 144 Potassium (3.5-5.1) mmol/L 4.1 Chloride (98-107) mmol/L 106 Carbon Dioxide (21.0-32.0) mmol/L 28.2 Anion Gap (3-11) mmol/L 9.8 BUN (7-18) mg/dL 14 Creatinine (0.70-1.30) mg/dL 0.9 Est GFR (CKD-EPI 2020) (mL/min/1.73m2) 123.07 Glucose (74-106) mg/dL 100 Calcium (8.5-10.1) mg/dL 8.7 Total Bilirubin (0.2-1.0) mg/dL 0.5 AST (15-37) U/L 9 L ALT (16-63) U/L 19 Alkaline Phosphatase (46-116) U/L 84 Total Protein (6.4-8.2) g/dL 7.3 Albumin (3.4-5.0) g/dL 4.3 Salicylates (<2.8) mg/dL 3.8 Urine Opiates Screen (Negative) Negative Urine Methadone Screen (Negative) Negative Acetaminophen (10-30) ug/mL < 2 Ur Barbiturates Screen (Negative) Negative Ur Tricyclics Screen (Negative) Negative Ur Amphetamines Screen (Negative) Negative U Benzodiazepines Scrn (Negative) Negative [employer] (0.6-1.2) mmol/L 0.4 L Urine Cocaine Screen (Negative) Negative Ur THC Screen (Negative) Positive A Quality:SDOH Health Related Social Needs: No Data to Display Sign Out Sign Out Data: Sign Out Comment: Patient is here voluntarily for suicidal thoughts. Plan at signout: Follow-up medical screening labs and lithiium level. Follow-up review of medical records -discharge summary from [facility] to be sent. Review discharge medications. Last updated by Marty Alves MD at 10/28/23 15:28 Sign Out Comment: Patient seen in sign-out, had already been evaluated by [facility]. Recent discharge from [facility]. Having auditory hallucinations, paranoia, suicidal ideation without plan. Med Rec from recent in-patient stay- is only on olanzapine and lithium. [employer] level checked, no concern for toxicity- will continue routine dosing. Other labs benign. Patient is voluntary awaiting bed placement. No acute events in ED today. Last updated by Calvin Willis PA at 10/28/23 21:31 Discharge Plan Discharge Details Chief Complaint: PsychEval Primary Care Provider: Laron Smith ED Provider: Calvin Willis Home Meds and New Rx's Prescriptions: No Action quetiapine 25 mg tablet 25 mg PO QHS Qty: 60 1RF olanzapine 10 mg tablet 20 mg PO QPM Patient Comments: Pt endorses prescription, states I'm not taking it. lithium carbonate 300 mg tablet extended release 600 mg PO QHS Patient Comments: TAKE 2 TABLETS BY MOUTH AT BEDTIME nicotine (polacrilex) 4 mg gum 4 mg PO Q2H Patient Comments: CHEW 1 PIECE OF GUM BY MOUTH EVERY 2 HOURS NEEDED gabapentin 600 mg tablet 600 mg PO TID Patient Comments: TK 1 T PO TID trazodone 50 mg tablet 50 mg PO HS Patient Comments: TK 1 T PO HS lamotrigine [Lamictal] 100 mg tablet 100 mg PO BID Patient Comments: Take 1 tablet by mouth twice a day
[2023-10-28 15:42] LABS: Abs Immature Grans 0.04 10^3/uL (0.0-0.06); Absolute Basophil Count 0.07 10^3/uL (0.0-0.2); Absolute Eosinophil Count 0.12 10^3/uL (0.0-0.7); Absolute Lymphocyte Count 1.76 10^3/uL (1.2-3.4); Absolute Monocyte Count 0.61 10^3/uL (0.1-0.8); Absolute Neutrophil Count 8.62 10^3/uL (1.2-6.7); Basophils % 0.6 %; Eosinophils % 1.1 %; HCT 44.1 % (40.0-50.0); HGB 14.9 g/dL (13.5-17.5); Immature Grans % 0.4 %; Lymphocytes % 15.7 %; MCH 31.6 pg (27.0-33.0); MCHC 33.8 % (32.0-36.0); MCV 93 fL (80-95); MPV 9.5 fL (8.0-11.0); Monocytes % 5.4 %; Neutrophils % 76.8 %; Platelet Count 324 10^3/uL (130-400); RBC 4.72 10^6/uL (4.36-5.78); RDW 11.7 % (11.8-14.1); RDW-SD 40.8 fL; WBC 11.23 10^3/uL (4.4-10.8)
[2023-10-28 15:57] LABS: ALT 19 U/L (16-63); AST 9 U/L (15-37); Albumin 4.3 g/dL (3.4-5.0); Alkaline Phosphatase 84 U/L (46-116); Anion Gap 9.8 mmol/L (3-11); BUN 14 mg/dL (7-18); Bilirubin, Total 0.5 mg/dL (0.2-1.0); CO2 28.2 mmol/L (21.0-32.0); CREATININE 0.9 mg/dL (0.70-1.30); Calcium 8.7 mg/dL (8.5-10.1); Chloride 106 mmol/L (98-107); Estimated GFR 123.07 (mL/min/1.73m2); Glucose 100 mg/dL (74-106); Potassium 4.1 mmol/L (3.5-5.1); Sodium 144 mmol/L (136-145); Total Protein 7.3 g/dL (6.4-8.2)
[2023-10-28 16:02] LABS: Lithium 0.4 mmol/L (0.6-1.2); Salicylate 3.8 mg/dL (<2.8)
[2023-10-28 16:03] LABS: Acetaminophen < 2 ug/mL (10-30)
[2023-10-28 16:05] LABS: *AMPHETAMINES SCREEN URINE Negative (Negative); *BARBITURATES SCREEN URINE Negative (Negative); *BENZODIAZEPINES SCREEN URINE Negative (Negative); Cannabinoids THC Positive (Negative); Cocaine Screen,Urine Negative (Negative); METHADONE URINE SCREEN Negative (Negative); OPIATES URINE SCREEN Negative (Negative)
[2023-10-28 16:07] LABS: Tricyclic Antidepressants Negative (Negative)
--- NOTE | 2023-10-28 16:10 | PDOC.MHCN ---
Date of service: 10/28/23 Time of Service: 16:11 PHQ-9 Over the last 2 weeks, how often have you been bothered by any of the following problems? 1. Little interest or pleasure in doing things: several days 2. Feeling down, depressed, or hopeless: more than half the days 3. Trouble falling or staying asleep, or sleeping too much: not at all 4. Feeling tired or having little energy: not at all 5. Poor appetite or overeating: not at all 6. Feeling bad about yourself - or that you are a failure or have let yourself and your family down: more than half the days 7. Trouble concentrating on things, such as reading the newspaper or watching television: several days 8. Moving or speaking so slowly that other people could have noticed? - Or the opposite - being so fidgety or restless that you have been moving around a lot more than usual: several days 9. Thoughts that you would be better off or of hurting yourself in some way: several days Total score: 8 If you checked off any problems, how difficult have these problems made it for you to do your work, take care of things at home, or get along with other people?: very difficult Source: Developed by Drs. Piero Zaman, Doreen Power, Khari Duque and colleagues, with an educational rosa from [employer]. Suicide Severity Rate CSSRS Have you wished you were or wished you could go to sleep and not wake up?: No Have you actually had any thoughts of killing yourself?: Yes CSSRS2 Have you been thinking about how you might do this?: No Have you had these thoughts and had some intention of acting on them?: Yes Have you started to work out or worked out the details of how to kill yourself? Do you intend to carry out this plan?: Yes CSSRS3 Have you ever done anything, started to do anything or prepared to do anything to end your life?: Yes CSSRS4 Was this within the past three months?: No Screening Score Total Score: 4 Screening: Positive Mental Health Emergency Note Release [facility] release signed:: Yes Reason for Visit The client is known to [facility] and is serviced through the [employer] [employer] program. He was just released from on 5.6.24 after 2 1/2 months treatment. He is currently on an ONH. He was last seen on 10.24 by his case operator. The client outreached via phone and stated that he doesn't know what to do and his life is too complicated to put together. In the last 2 weeks has the pt presented for ES prior to today?: Unknown Client Information Client is: [employer] Well Housed: No,status: Not homeless, Unstable housing Non Suicidal Self Injury Current: No History: yes, cutting Safety Risk/Harm to Self or Others Current Ideation to Harm Self or Others: Yes to self. Intent: yes, has intent. Plan: no.does not have a plan. History of suicide attempt: yes,history of suicide attempt reported. Details of previous suicide attempt: 13 years old he asked his mother to buy pills so that he could overdose. Risk: Does risk to harm exist?: yes. Access to means: No. Risk: High Risk Duty to warn indicated: No Asssessment/Mental Status Appearance: Well groomed Attitude: Cooperative Behavior: Unremarkable Speech: Normal Affect: Flat Mood: Stressed and Depressed Thought process: Goal directed Hallucinations: No Delusions: No Attention: Unremarkable Perception: Not impaired Orientation: Fully orientated Memory: Intact Insight: Good Judgement: Good Neurovegetative Symptoms Sleep: No change Appetitie: No change Interests: Decrease Energy: No change Libido: Not applicable Substance Use: Drug Issues: Dependence Do you use nicotine?: Yes Have you used substances in the last 7 days?: yes, THC Additional Issues: Assaultive/Threatening Behavior: No Medical Concerns: No Client engaged in active self harm w/weapon: No Threatening to run away: No Child reported abuse/neglect: No Voluntarily presenting for services: Yes Domestic violence is a concern: No Extreme Psychosis or extreme behavior is present: No Impression The client is a 23 year old, single, , male who is paying for a hotel while he tries to find more permanent housing. He uses He/Him pronouns and identifies as straight non transgender. All underrepresented categories were honored during this assessment. The client engaged in all screening tools including the CSSRS. This clinician is not CAM's trained yet so that service could not be offered. The client reported that he finds himself stuck between thoughts and emotions and that he feels like his personality is splitting in two directions. This has been causing him migraines as well. He reported he has been trying to find housing but if anyone googles his name articles show up about him that would not encourage a landlord to rent to him. He presents appropriately dressed in layers. The client has medium length hair and a goatee. He was asked about 4 people coming to assess and when we arrived he invites all in. The client sits down in his chair in his room ad is observed mostly holding his face in his palm. He at times takes a fw seconds to answer a question but did answer all questions asked. He expressed SI with an intent a 12/24 and denied HI. He has minimal natural supports. He reported having a hearing next Saturday for a simple assault charge. THe client is requesting an inpatient referral. Plan/Disposition Recommended Disposition: Hospitalization facilities contacted. Plan: The client's team was consulted through the workday director about a CARE Bed referral vs. inpatient and they informed this clinician that the CARE Bed should be considered as a step down and that he should still go inpatient. An ambulance was called for the client to be transported to [facility] for placement. Person reported agreement to plan: Yes Facilities contacted if Applicable [facility] Not accepted, No bed available [facility] Not accepted, No bed available [facility] Not accepted, No bed available, [facility] Not accepted, No bed available Reports/communication Outcome discussed with: ED/Personnel
[2023-10-28] MEDS: OLANZapine 10 MG TAB PO (17:35)
--- NOTE | 2023-10-28 20:05 | CMSP_ITS ---
Date of service: 10/28/23 Time of Service: 20:05 Care Management Safety Plan Status Status: Voluntary Reason for Wait Reason for Wait: Inpatient Admission Safety Plan Safety Plan: VOLUNTARY FOR INPATIENT PSYCHIATRIC STABILIZATION.? Patient is appropriate in all interactions since arriving at [facility]; Pt has demonstrated appropriate coping and communication skills, has articulated his or her needs and concerns and is fully engaged during staff interactions. Safety plan has been established with patient, and care team, to adhere to patient goals, identify restrictions based on behavioral status, address nutrition, and determine allowed personal belongings, tools for hygiene and personal care. Determine level of activity including ambulation, level of supervision, visitors, and determine privileges based on behaviors and level of engagement by pt. SAFETY PLAN: 1. Will remain on suicide precautions, in paper clothes 2. Will remain in Zone B under direct supervision of one-on-one staff at all times provided by [employer]; HERI, ROUSTABOUT CREW LEADER senior architect. 3. May have paper cups, plates, finger foods as well as a cardboard spoon with which to eat meals. 4. Follow [facility] Management of the Admitted Behavioral Health Patient policy. 5. Shower available in Zone B without restriction. 6. Personal belongings-soft items permitted at RN discretion. 7. Visitors- at RN discretion. 8. Activities: soft cart items approved per RN discretion. 9.? Bathroom available in Zone B without restriction. 10. Phone: incoming/outgoing calls limited to [facility] cordless phone at RN di scretion. Due to VOLUNTARY status, if patient wishes to leave [facility], staff will contact [facility] Crisis Screener ([phone]) and Bench Scientist ([phone]) as soon as possible. In the event of elopement, notify [facility] Police ([phone]). Patient is currently voluntarily at [facility] and seeking inpatient admission when a bed becomes available. [facility] Frontline Assistant Executive Housekeeper will continue seeking placement. Please contact the Bench Scientist ([phone]) and [facility] Assistant Executive Housekeeper ([phone]) for any needed changes in the Safety Plan. Safety plan has been provided to interdepartmental care team.
--- NOTE | 2023-10-28 20:05 | PDOC.CMSAFE ---
Date of service: 10/28/23 Time of Service: 20:05 Care Management Safety Plan Status Status: Voluntary Reason for Wait Reason for Wait: Inpatient Admission Safety Plan Safety Plan: VOLUNTARY FOR INPATIENT PSYCHIATRIC STABILIZATION.? Patient is appropriate in all interactions since arriving at [facility]; Pt has demonstrated appropriate coping and communication skills, has articulated his or her needs and concerns and is fully engaged during staff interactions. Safety plan has been established with patient, and care team, to adhere to patient goals, identify restrictions based on behavioral status, address nutrition, and determine allowed personal belongings, tools for hygiene and personal care. Determine level of activity including ambulation, level of supervision, visitors, and determine privileges based on behaviors and level of engagement by pt. SAFETY PLAN: 1. Will remain on suicide precautions, in paper clothes 2. Will remain in Zone B under direct supervision of one-on-one staff at all times provided by [employer]; HERI, FISH FARMER orthodontic lab technician. 3. May have paper cups, plates, finger foods as well as a cardboard spoon with which to eat meals. 4. Follow [facility] Management of the Admitted Behavioral Health Patient policy. 5. Shower available in Zone B without restriction. 6. Personal belongings-soft items permitted at RN discretion. 7. Visitors- at RN discretion. 8. Activities: soft cart items approved per RN discretion. 9.? Bathroom available in Zone B without restriction. 10. Phone: incoming/outgoing calls limited to [facility] cordless phone at RN discretion. Due to VOLUNTARY status, if patient wishes to leave [facility], staff will contact [facility] Crisis Screener ([phone]) and Braille Proofreader ([phone]) as soon as possible. In the event of elopement, notify [facility] Police ([phone]). Patient is currently voluntarily at [facility] and seeking inpatient admission when a bed becomes available. [facility] Frontline Commercial Retoucher will continue seeking placement. Please contact the Braille Proofreader ([phone]) and [facility] Commercial Retoucher ([phone]) for any needed changes in the Safety Plan. Safety plan has been provided to interdepartmental care team.
--- NOTE | 2023-10-28 20:06 | CMPROGNOTE_ITS ---
Date of service: 10/28/23 Time of Service: 20:07 Care Management Progress Note Progress Note Text Progress Note Text: CM met with ED staff regarding Skyler's plan of care. Anabel [facility], stated that Skyler had a mental health screen in the community just prior to his presentation at [facility]. She stated that he is suicidal (12/24), and that he was discharged from [facility] on 10/21/23 after a 2.5 month hospitalization. She stated that he has a history of aggressive behaviors, but that he is not presenting in an aggressive manner currently; he is presenting with a flat affect, and is worried and overwhelmed. Skyler was medically cleared, and [facility] sent referrals to accepting facilities. No beds available at this time. COSMO provided a safety plan with input from Anabel and ED staff. COSMO will continue to follow.
[2023-10-28] MEDS: OLANZapine 5 MG TAB 10 MG PO (20:36)
[2023-10-29] MEDS: OLANZapine 5 MG TAB 10 MG PO (09:09)
--- NOTE | 2023-10-29 09:18 | CMSP_ITS ---
Date of service: 10/29/23 Time of Service: 09:18 Care Management Safety Plan Status Status: Voluntary Reason for Wait Reason for Wait: Inpatient Admission Safety Plan Safety Plan: VOLUNTARY FOR INPATIENT PSYCHIATRIC STABILIZATION.? Patient is appropriate in all interactions since arriving at [facility]; Pt has demonstrated appropriate coping and communication skills, has articulated his needs and concerns and is fully engaged during staff interactions. Safety plan has been established with patient, and care team, to adhere to patient goals, identify restrictions based on behavioral status, address nutrition, and determine allowed personal belongings, tools for hygiene and personal care. Determine level of activity including ambulation, level of supervision, visitors, and determine privileges based on behaviors and level of engagement by pt. 10:45 CM huddled with [facility] clinician, RN, SURVEILLANCE DIRECTOR and spoke with RN Slip Tender individually. [place] reviewing for today. 1500: Skyler has a bed offer at [facility]. [place] Cardoso picker/puller 17-17:30 SAFETY PLAN: 1. Will remain on suicide precautions, in paper clothes 2. Will remain in Zone B under direct supervision of one-on-one staff at all times provided by [employer]; HERI, SURVEILLANCE DIRECTOR adjunct writing instructor. 3. May have paper cups, plates, finger foods as well as a cardboard spoon with which to eat meals. 4. Follow [facility] Management of the Admitted Behavioral Health Patient policy. 5. Shower available in Zone B without restriction. 6. Personal belongings-soft items permitted at RN discretion. 7. Visitors- at RN discretion. 8. Activities: soft cart items approved per RN discretion. 9.? Bathroom available in Zone B without restriction. 10. Phone: incoming/outgoing calls limited to [facility] cordless phone at RN discretion. Due to VOLUNTARY status, if patient wishes to leave [facility], staff will contact [facility] Crisis Screener ([phone]) and Payment Processor ([phone]) as soon as possible. In the event of elopement, notify [facility] Police ([phone]). Patient is currently voluntarily at [facility] and seeking inpatient admission when a bed becomes available. [facility] Frontline Mobile Sales Technician will continue seeking placement. Please contact the Payment Processor ([phone]) and [facility] Mobile Sales Technician ([phone]) for any needed changes in the Safety Plan. Safety plan has been provided to interdepartmental care team.
--- NOTE | 2023-10-29 09:18 | PDOC.CMSAFE ---
Date of service: 10/29/23 Time of Service: 09:18 Care Management Safety Plan Status Status: Voluntary Reason for Wait Reason for Wait: Inpatient Admission Safety Plan Safety Plan: VOLUNTARY FOR INPATIENT PSYCHIATRIC STABILIZATION.? Patient is appropriate in all interactions since arriving at [facility]; Pt has demonstrated appropriate coping and communication skills, has articulated his needs and concerns and is fully engaged during staff interactions. Safety plan has been established with patient, and care team, to adhere to patient goals, identify restrictions based on behavioral status, address nutrition, and determine allowed personal belongings, tools for hygiene and personal care. Determine level of activity including ambulation, level of supervision, visitors, and determine privileges based on behaviors and level of engagement by pt. 10:45 CM huddled with [facility] clinician, RN, CAMP COORDINATOR and spoke with RN Bottle Capping Machine Operator individually. [place] reviewing for today. 1500: Skyler has a bed offer at [facility]. [place] Cardoso slate picker 17-17:30 SAFETY PLAN: 1. Will remain on suicide precautions, in paper clothes 2. Will remain in Zone B under direct supervision of one-on-one staff at all times provided by [employer]; HERI, CAMP COORDINATOR tablet machine operator. 3. May have paper cups, plates, finger foods as well as a cardboard spoon with which to eat meals. 4. Follow [facility] Management of the Admitted Behavioral Health Patient policy. 5. Shower available in Zone B without restriction. 6. Personal belongings-soft items permitted at RN discretion. 7. Visitors- at RN discretion. 8. Activities: soft cart items approved per RN discretion. 9.? Bathroom available in Zone B without restriction. 10. Phone: incoming/outgoing calls limited to [facility] cordless phone at RN discretion. Due to VOLUNTARY status, if patient wishes to leave [facility], staff will contact [facility] Crisis Screener ([phone]) and Warehouse Consultant ([phone]) as soon as possible. In the event of elopement, notify [facility] Police ([phone]). Patient is currently voluntarily at [facility] and seeking inpatient admission when a bed becomes available. [facility] Frontline Education Reviewer will continue seeking placement. Please contact the Warehouse Consultant ([phone]) and [facility] Education Reviewer ([phone]) for any needed changes in the Safety Plan. Safety plan has been provided to interdepartmental care team.
[2023-10-29 09:23] VITALS: BP 108/65; PULSE 59; TEMP 36; O2SAT 97
[2023-10-29] MEDS: Nicotine 2 MG GUM CH ×2 (13:04→14:39)
--- NOTE | 2023-10-29 13:21 | ED.PROG_ITS ---
Date of service: 10/29/23 Time of Service: 13:21 Medical Decision Making Patient resting comfortably no acute distress. Has been excepted [facility]. Provider to provider signout has been given to Romain. Quality:[facility] Health Related Social Needs: No Data to Display Sign Out Sign Out Data: Sign Out Comment: Patient is here voluntarily for suicidal thoughts. Plan at signout: Follow-up medical screening labs and lithiium level. Follow-up review of medical records -discharge summary from [facility] to be sent. Review discharge medications. Last updated by Marty Alves MD at 10/28/23 15:28 Sign Out Comment: Patient seen in sign-out, had already been evaluated by [facility]. Recent discharge from [facility]. Having auditory hallucinations, paranoia, suicidal ideation without plan. Med Rec from recent in-patient stay- is only on olanzapine and lithium. [place] level checked, no concern for toxicity- will continue routine dosing. Other labs benign. Patient is voluntary awaiting bed placement. No acute events in ED today. Last updated by Calvin Willis PA at 10/28/23 21:31 Sign Out Comment: Patient stable throughout the night. No interventions needed. Awaiting voluntary placement. Daily medications have been ordered by daytime providers. Last updated by Calvin Barrienots DO at 10/29/23 05:51 Discharge Plan Disposition Patient Disposition: Psychiatric Hospital/Unit Specific Psychiatric Facility: [facility] Condition: Stable Discharge Details Chief Complaint: PsychEval Clinical Impression: Bipolar 1 disorder Primary Care Provider: Laron Smith ED Provider: Juanjo Onofre Home Meds and New Rx's Prescriptions: No Action quetiapine 25 mg tablet 25 mg PO QHS Qty: 60 1RF olanzapine 10 mg tablet 20 mg PO QPM Patient Comments: Pt endorses prescription, states I'm not taking it. lithium carbonate 300 mg tablet extended release 600 mg PO QHS Patient Comments: TAKE 2 TABLETS BY MOUTH AT BEDTIME nicotine (polacrilex) 4 mg gum 4 mg PO Q2H Patient Comments: CHEW 1 PIECE OF GUM BY MOUTH EVERY 2 HOURS NEEDED gabapentin 600 mg tablet 600 mg PO TID Patient Comments: TK 1 T PO TID trazodone 50 mg tablet 50 mg PO HS Patient Comments: TK 1 T PO HS lamotrigine [Lamictal] 100 mg tablet 100 mg PO BID Patient Comments: Take 1 tablet by mouth twice a day
--- NOTE | 2023-10-29 14:16 | PDOC.MHPN2 ---
Date of service: 10/29/23 Time of Service: 14:16 Mental Health Emergency Note Release [facility] release signed:: Yes Reason for Visit The client is known to [facility] and is serviced through the COMMERCIAL CENTER MANAGER program. He was just released from on 10.21.23 after 2 1/2 months treatment. He is currently on an ONH. He was last seen on 10.24 by his case packer and sealer. In the last 2 weeks has the pt presented for ES prior to today?: Unknown Impression The client is a 23 year old, single, , male who is paying for a hotel while he tries to find more permanent housing. He uses He/Him pronouns and identifies as straight non transgender. All underrepresented categories were honored during this assessment. On 10.29.23, the client engaged in all screening tools including the CSSRS. This clinician is not CAM's trained yet so that service could not be offered. The client presented sitting in bed with the TV on reading a book. He sits up in his bed sim-cross applesauce style, making full eye contact, engaged and participating in the assessment. He was informed that he would likely be accepted to today and he was on board with this although this would not have been his first choice. We discussed that this was his choice this time and that it would be a shorter stay. We also discussed that he could request a slower transition as he could go to the CARE Bed and that his team will support him in this transition. He reported he liked this idea. He still reports SI self-reporting his risk a 6/10. Plan/Disposition Recommended Disposition: Hospitalization facilities contacted. Plan: We also discussed that he could request a slower transition as he could go to the CARE Bed and that his team will support him in this transition. He reported he liked this idea. He was accepted to today and will be transported. Person reported agreement to plan: Yes Reports/communication Outcome discussed with: ED/Personnel
[2023-10-29] MEDS: LORazepam 0.5 MG TAB PO (14:32)
== END 2023-10-29 17:27 ==
PROVIDERS: Student in an Organized Health Care Education/Training Program; Emergency Provider Emergency Medicine; PCP Family Medicine
DX: F31.9 Bipolar disorder, unspecified (principal); F32.A Depression, unspecified; R45.851 Suicidal ideations
CPT/HCPCS: 00123; 36415; 80053; 80307; 96127; 99285; 80178; 80329; 85025; J3490

== ENCOUNTER 2024-12-11 16:53 | Emergency (ER) | payer MEDICAID, SELFPAY ==
[2024-12-11 17:15] VITALS: BP 150/90; PULSE 109; RESP 18; TEMP 36.9; O2SAT 96
--- NOTE | 2024-12-11 17:30 | DI.CT_ITS ---
Exam(s) CT HEAD WO EXAM: CT HEAD WO CLINICAL HISTORY: trauma. TECHNIQUE: Imaging Protocol: Axial computed tomography images with coronal and sagittal reformatted images were created and reviewed COMPARISON: No exams were available for comparison FINDINGS: Ventricles and Extra axial spaces: Normal in size and morphology for the patient's age. Hemorrhage: None. Cerebral parenchyma: No evidence of acute infarct or mass. Midline shift: None. Brainstem/Cerebellum: Normal. Calvarium: Normal. Mildly depressed comminuted nasal fractures. No additional facial fractures are identified. Visualized Paranasal sinuses:Clear. Mastoids: Clear. Soft Tissues: Soft tissue swelling around the nose. ORBITS: Unremarkable. PITUITARY: Not enlarged. IMPRESSION: No acute intracranial process. Nasal fractures. RADIATION DOSE DELIVERED: Total DLP DATA REPOSITORY: All CT scans at this facility are submitted to the National Radiology Data Registry (NRDR) Dose Index Registry (DIR) with the [employer] (ACR). RADIATION OPTIMIZATION: All CT scans at this facility use at least one of these dose optimization techniques: automated exposure control; mA and/or kV adjustment per patient size (includes targeted exams where dose is matched to clinical indication); or iterative reconstruction.
[2024-12-11 18:36] LABS: *AMPHETAMINES SCREEN URINE Negative (Negative); *BARBITURATES SCREEN URINE Negative (Negative); *BENZODIAZEPINES SCREEN URINE Negative (Negative); Cannabinoids THC Positive (Negative); Cocaine Screen,Urine Negative (Negative); METHADONE URINE SCREEN Negative (Negative); OPIATES URINE SCREEN Negative (Negative)
[2024-12-11 18:37] LABS: Abs Immature Grans 0.04 10^3/uL (0.0-0.06); Absolute Basophil Count 0.03 10^3/uL (0.0-0.2); Absolute Eosinophil Count 0.03 10^3/uL (0.0-0.7); Absolute Lymphocyte Count 2.19 10^3/uL (1.2-3.4); Absolute Monocyte Count 0.89 10^3/uL (0.1-0.8); Basophils % 0.3 %; Eosinophils % 0.3 %; HCT 39.8 % (40.0-50.0); HGB 13.8 g/dL (13.5-17.5); Immature Grans % 0.4 %; Lymphocytes % 19.8 %; MCH 31.7 pg (27.0-33.0); MCHC 34.7 % (32.0-36.0); MCV 92 fL (80-95); MPV 9.7 fL (8.0-11.0); Monocytes % 8.1 %; Neutrophils % 71.1 %; Platelet Count 315 10^3/uL (130-400); RBC 4.35 10^6/uL (4.36-5.78); RDW 12.2 % (11.8-14.1); RDW-SD 40.8 fL; WBC 11.04 10^3/uL (4.4-10.8)
[2024-12-11 18:39] LABS: Absolute Neutrophil Count 7.85 10^3/uL (1.2-6.7)
[2024-12-11 18:40] LABS: Tricyclic Antidepressants Negative (Negative)
[2024-12-11 18:49] LABS: ETHANOL BLOOD < 3.0 mg/dL (<10)
[2024-12-11 18:53] LABS: ALT 26 U/L (16-63); AST 18 U/L (15-37); Albumin 4.3 g/dL (3.4-5.0); Alkaline Phosphatase 70 U/L (46-116); Anion Gap 11.3 mmol/L (3-11); BUN 10 mg/dL (7-18); Bilirubin, Total 0.7 mg/dL (0.2-1.0); CO2 25.7 mmol/L (21.0-32.0); CREATININE 0.8 mg/dL (0.70-1.30); Calcium 9.2 mg/dL (8.5-10.1); Chloride 103 mmol/L (98-107); Estimated GFR 126.74 (mL/min/1.73m2); Glucose 100 mg/dL (74-106); Potassium 3.5 mmol/L (3.5-5.1); Sodium 140 mmol/L (136-145); Total Protein 7.1 g/dL (6.4-8.2)
[2024-12-11 19:05] LABS: Acetaminophen < 2 ug/mL (10-30); Salicylate 3.8 mg/dL (<2.8)
[2024-12-11] MEDS: OLANZapine ODT 5 MG TAB 10 MG PO (19:46)
[2024-12-11] MEDS: risperiDONE 1 MG TAB 2 MG PO (20:24)
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
[2024-12-11] MEDS: Nicotine 4 MG LOZG SUC (21:38)
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
[2024-12-12] MEDS: risperiDONE 1 MG TAB 2 MG PO ×2 (09:01→19:38)
[2024-12-12] MEDS: Nicotine 4 MG LOZG SUC ×6 (09:08→22:53)
[2024-12-12] MEDS: OLANZapine ODT 5 MG TAB PO ×3 (11:45→20:15)
[2024-12-12] MEDS: Nicotine 21 MG/24 HR PATCH TD (12:33)
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
--- NOTE | 2024-12-12 20:17 | CMSP_ITS ---
Date of service: 12/12/24 Time of Service: 20:17 Care Management Safety Plan Status Status: Voluntary Reason for Wait Reason for Wait: Inpatient Admission and Assessment/Screening Safety Plan Safety Plan: VOLUNTARY FOR INPATIENT PSYCHIATRIC STABILIZATION.? Patient is appropriate in all interactions since arriving at [facility]; Pt has demonstrated appropriate coping and communication skills, has articulated his or her needs and concerns and is fully engaged during staff interactions. Safety plan has been established with patient, and care team, to adhere to pa tient goals, identify restrictions based on behavioral status, address nutrition, and determine allowed personal belongings, tools for hygiene and personal care. Determine level of activity including ambulation, level of supervision, visitors, and determine privileges based on behaviors and level of engagement by pt. VOLUNTARY SAFETY PLAN: 1. Will remain on suicide precautions, in paper clothes 2. Will remain in Zone B under direct supervision of one-on-one staff at all times provided by [employer]; HERI, ORDER DESK CLERK transportation specialist. 3. May have paper cups, plates, finger foods as well as a cardboard spoon with which to eat meals. 4. Follow [facility] Management of the Admitted Behavioral Health Patient policy. 5. Shower available in Zone B without restriction. 6. Personal belongings-soft items permitted at RN discretion. 7. Visitors- supportive visitors, at RN discretion. 8. Activities: soft cart items, hospital tablets (Netflix/Center+/music) approved per RN discretion. 9.? Bathroom available in Zone B without restriction. 10. Phone: limited to [facility] cordless phone at RN discretion. Due to VOLUNTARY status, if patient wishes to leave [facility], staff will contact [facility] Crisis Screener ([phone]) and Jail Keeper ([phone]) as soon as possible. In the event of elopement, notify [place] [employer] ([phone]). Patient is currently voluntarily at [facility] and seeking inpatient admission when a bed becomes available. [facility] Frontline Equip Maint Eng will continue seeking placement. Please contact the Jail Keeper ([phone]) and [facility] Equip Maint Eng ([phone]) for any needed changes in the Safety Plan. Safety plan has been provided to interdepartmental care team.
--- NOTE | 2024-12-12 20:17 | PDOC.CMSAFE ---
Date of service: 12/12/24 Time of Service: 20:17 Care Management Safety Plan Status Status: Voluntary Reason for Wait Reason for Wait: Inpatient Admission and Assessment/Screening Safety Plan Safety Plan: VOLUNTARY FOR INPATIENT PSYCHIATRIC STABILIZATION.? Patient is appropriate in all interactions since arriving at [facility]; Pt has demonstrated appropriate coping and communication skills, has articulated his or her needs and concerns and is fully engaged during staff interactions. Safety plan has been established with patient, and care team, to adhere to patient goals, identify restrictions based on behavioral status, address nutrition, and determine allowed personal belongings, tools for hygiene and personal care. Determine level of activity including ambulation, level of supervision, visitors, and determine privileges based on behaviors and level of engagement by pt. VOLUNTARY SAFETY PLAN: 1. Will remain on suicide precautions, in paper clothes 2. Will remain in Zone B under direct supervision of one-on-one staff at all times provided by [employer]; HERI, APPLICATIONS MANAGER adjunct spanish instructor. 3. May have paper cups, plates, finger foods as well as a cardboard spoon with which to eat meals. 4. Follow [facility] Management of the Admitted Behavioral Health Patient policy. 5. Shower available in Zone B without restriction. 6. Personal belongings-soft items permitted at RN discretion. 7. Visitors- supportive visitors, at RN discretion. 8. Activities: soft cart items, hospital tablets (Netflix/[place]wood+/music) approved per RN discretion. 9.? Bathroom available in Zone B without restriction. 10. Phone: limited to [facility] cordless phone at RN discretion. Due to VOLUNTARY status, if patient wishes to leave [facility], staff will contact [facility] Crisis Screener ([phone]) and Lead Tank Mechanic ([phone]) as soon as possible. In the event of elopement, notify [facility] Police ([phone]). Patient is currently voluntarily at [facility] and seeking inpatient admission when a bed becomes available. [facility] Frontline Quiller Tender will continue seeking placement. Please contact the Lead Tank Mechanic ([phone]) and [facility] Quiller Tender ([phone]) for any needed changes in the Safety Plan. Safety plan has been provided to interdepartmental care team.
--- NOTE | 2024-12-12 20:18 | PDOC.CMPRO ---
Date of service: 12/12/24 Time of Service: 20:18 Care Management Progress Note Progress Note Text Progress Note Text: CM huddled with [facility] staff regarding Skyler's plan of care. Per RN, Skyler has been showing insight today, which represents an improvement from yesterday. He is asking for his medications, and has stated that he knows that he needs to stay on his medications, which he had stopped taking in the community. Per report, [facility] brought Skyler in on a warrant to be held involuntarily, but did not agree with the warrant. Psych consult has been ordered, which will help determine the plan of care. Skyler is agreeable to remaining for the psych consult, although he doesn't want to go voluntarily to treatment, due to a bad experience he had a [place]. Skyler is currently voluntary, pending a psychiatric consult. If he is cleared for discharge, [facility] will be engaged to complete a safety plan. If the recommendation is to hold him involuntarily for treatment, an EE will be written and filed. CM will continue to follow. Social Determinants of Health Screening Will the Patient Participate in the Screening?: Declined to provide
--- NOTE | 2024-12-12 21:13 | NUR.NOTE ---
2048 [facility] to ask if pt was still voluntaryNursing Note:
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
[2024-12-13] MEDS: Nicotine 4 MG LOZG SUC ×6 (10:51→22:54)
[2024-12-13] MEDS: risperiDONE 1 MG TAB 2 MG PO ×2 (10:51→19:55)
[2024-12-13] MEDS: OLANZapine ODT 5 MG TAB PO ×2 (11:02→17:30)
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
--- NOTE | 2024-12-13 12:55 | CMSP_ITS ---
Date of service: 12/13/24 Time of Service: 12:55 Care Management Safety Plan Status Status: Voluntary Reason for Wait Reason for Wait: Inpatient Admission Safety Plan Safety Plan: VOLUNTARY FOR INPATIENT PSYCHIATRIC STABILIZATION.? Patient is appropriate in all interactions since arriving at [facility]; Pt has demonstrated appropriate coping and communication skills, has articulated his or her needs and concerns and is fully engaged during staff interactions. Safety plan has been established with patient, and care team, to adhere to patient goals, identify restrictions based on behavioral status, address nutrition, and determine allowed personal belongings, tools for hygiene and personal care. Determine level of activity including ambulation, level of supervision, visitors, and determine privileges based on behaviors and level of engagement by pt. VOLUNTARY SAFETY PLAN: 1. Will remain on suicide precautions, in paper clothes 2. Will remain in Zone B under direct supervision of one-on-one staff at all times provided by [employer]; HERI, LEAD DRIVER factory worker. 3. May have paper cups, plates, finger foods as well as a cardboard spoon with which to eat meals. 4. Follow [facility] Management of the Admitted Behavioral Health Patient policy. 5. Shower available in Zone B without restriction. 6. Personal belongings-soft items permitted at RN discretion. 7. Visitors- supportive visitors, at RN discretion. 8. Activities: soft cart items, hospital tablets (Netflix/Hamilton+/music) approved per RN discretion. 9.? Bathroom available in Zone B without restriction. 10. Phone: limited to [facility] cordless phone at RN discretion. Due to VOLUNTARY status, if patient wishes to leave [facility], staff will contact [facility] Crisis Screener ([phone]) and E Commerce Merchant ([phone]) as soon as possible. In the event of elopement, notify [facility] Police ([phone]). Patient is currently voluntarily at [facility] and seeking inpatient admission when a bed becomes available. [facility] Frontline Continuous Improvement Manager will continue seeking placement. Please contact the E Commerce Merchant ([phone]) and [facility] Continuous Improvement Manager ([phone]) for any needed changes in the Safety Plan. Safety plan has been provided to interdepartmental care team.
--- NOTE | 2024-12-13 12:55 | PDOC.CMSAFE ---
Date of service: 12/13/24 Time of Service: 12:55 Care Management Safety Plan Status Status: Voluntary Reason for Wait Reason for Wait: Inpatient Admission Safety Plan Safety Plan: VOLUNTARY FOR INPATIENT PSYCHIATRIC STABILIZATION.? Patient is appropriate in all interactions since arriving at [facility]; Pt has demonstrated appropriate coping and communication skills, has articulated his or her needs and concerns and is fully engaged during staff interactions. Safety plan has been established with patient, and care team, to adhere to patient goals, identify restrictions based on behavioral status, address nutrition, and determine allowed personal belongings, tools for hygiene and personal care. Determine level of activity including ambulation, level of supervision, visitors, and determine privileges based on behaviors and level of engagement by pt. VOLUNTARY SAFETY PLAN: 1. Will remain on suicide precautions, in paper clothes 2. Will remain in Zone B under direct supervision of one-on-one staff at all times provided by [employer]; HERI, DIRECTOR OF BUSINESS OPERATIONS airborne sensor specialist. 3. May have paper cups, plates, finger foods as well as a cardboard spoon with which to eat meals. 4. Follow [facility] Management of the Admitted Behavioral Health Patient policy. 5. Shower available in Zone B without restriction. 6. Personal belongings-soft items permitted at RN discretion. 7. Visitors- supportive visitors, at RN discretion. 8. Activities: soft cart items, hospital tablets (Netflix/[place]+/music) approved per RN discretion. 9.? Bathroom available in Zone B without restriction. 10. Phone: limited to [facility] cordless phone at RN discretion. Due to VOLUNTARY status, if patient wishes to leave [facility], staff will contact [facility] Crisis Screener ([phone]) and Supervisor Meter Repair Shop ([phone]) as soon as possible. In the event of elopement, notify [facility] Police ([phone]). Patient is currently voluntarily at [facility] and seeking inpatient admission when a bed becomes available. [facility] Frontline Featheredge Machine Operator will continue seeking placement. Please contact the Supervisor Meter Repair Shop ([phone]) and [facility] Featheredge Machine Operator ([phone]) for any needed changes in the Safety Plan. Safety plan has been provided to interdepartmental care team.
--- NOTE | 2024-12-13 12:55 | PDOC.CMPRO ---
Date of service: 12/13/24 Time of Service: 12:56 Care Management Progress Note Progress Note Text Progress Note Text: CM spoke to RN and RN lower in supervisor regarding Skyler's plan of care. Per report, Skyler was assessed by telepsych last evening, which recommends inpatient psychiatric treatment. Skyler reportedly agreed to the psychiatrist to remain at [facility] for voluntary treatment. [facility] has sent referrals for inpatient psychiatric treatment. Safety plan in place; CM will continue to follow. Social Determinants of Health Screening Will the Patient Participate in the Screening?: Declined to provide
[2024-12-13 14:30] VITALS: BP 122/81; PULSE 112; RESP 16; TEMP 37.4; O2SAT 98
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
[2024-12-13 20:00] VITALS: BP 133/86; PULSE 86; RESP 16; TEMP 36.8; O2SAT 97
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
[2024-12-14] MEDS: risperiDONE 1 MG TAB 2 MG PO (09:52)
[2024-12-14] MEDS: Nicotine 4 MG LOZG SUC ×2 (09:52→12:03)
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
[2024-12-14 12:10] VITALS: BP 131/85; PULSE 112; RESP 18; TEMP 37.2; O2SAT 96
[2024-12-14] MEDS: OLANZapine ODT 5 MG TAB PO (13:22)
--- NOTE | 2024-12-14 15:18 | CMPROGNOTE_ITS ---
Date of service: 12/14/24 Time of Service: 15:18 Care Management Progress Note Progress Note Text Progress Note Text: huddled with [facility] and [facility] staff regarding Skyler's plan of care. Per report, Skyler was accepted at [facility] for inpatient p sychiatric treatment this morning. ED staff coordinated transport and he transferred to via [facility]. Social Determinants of Health Screening Will the Patient Participate in the Screening?: Declined to provide
--- NOTE | 2024-12-14 15:18 | PDOC.CMPRO ---
Date of service: 12/14/24 Time of Service: 15:18 Care Management Progress Note Progress Note Text Progress Note Text: huddled with [facility] and [facility] staff regarding Skyler's plan of care. Per report, Skyler was accepted at [facility] for inpatient psychiatric treatment this morning. ED staff coordinated transport and he transferred to via [facility]. Social Determinants of Health Screening Will the Patient Participate in the Screening?: Declined to provide
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
== END 2024-12-14 13:57 ==
PROVIDERS: Emergency Medicine; Emergency Provider Student in an Organized Health Care Education/Training Program; PCP Family Medicine
DX: F31.9 Bipolar disorder, unspecified (principal); S02.2XXA Fracture of nasal bones, initial encounter for closed fracture; S00.83XA Contusion of other part of head, initial encounter; S05.12XA Contusion of eyeball and orbital tissues, left eye, initial encounter; Y04.0XXA Assault by unarmed brawl or fight, initial encounter
CPT/HCPCS: 00123; 80053; 80307; 96127; 99285; H0046; 70450; 80320; 80329; 85025

== ENCOUNTER 2025-01-04 19:44 | Emergency (ER) | payer MEDICAID, SELFPAY ==
[2025-01-04 19:54] VITALS: BP 125/81; PULSE 88; RESP 16; TEMP 36.9; O2SAT 98
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
[2025-01-04 20:31] LABS: Abs Immature Grans 0.05 10^3/uL (0.0-0.06); HCT 41.5 % (40.0-50.0); HGB 14.4 g/dL (13.5-17.5); Immature Grans % 0.4 %; MCH 31.4 pg (27.0-33.0); MCHC 34.7 % (32.0-36.0); MCV 90 fL (80-95); MPV 9.5 fL (8.0-11.0); Platelet Count 296 10^3/uL (130-400); RBC 4.59 10^6/uL (4.36-5.78); RDW 12.1 % (11.8-14.1); RDW-SD 40.2 fL; WBC 11.15 10^3/uL (4.4-10.8)
[2025-01-04] MEDS: risperiDONE 1 MG TAB 2 MG PO (20:37)
[2025-01-04] MEDS: LORazepam 1 MG TAB 2 MG PO (20:37)
[2025-01-04 20:55] LABS: ALT 25 U/L (16-63); AST 19 U/L (15-37); Albumin 4.7 g/dL (3.4-5.0); Alkaline Phosphatase 80 U/L (46-116); Anion Gap 13.0 mmol/L (3-11); BUN 7 mg/dL (7-18); Bilirubin, Total 0.6 mg/dL (0.2-1.0); CO2 25.0 mmol/L (21.0-32.0); Calcium 9.5 mg/dL (8.5-10.1); Chloride 97 mmol/L (98-107); Estimated GFR 96.14 (mL/min/1.73m2); Glucose 113 mg/dL (74-106); Potassium 3.4 mmol/L (3.5-5.1); Sodium 135 mmol/L (136-145); TSH (W/Ref FT4) 0.31 uIU/mL (0.36-3.74); Total Protein 7.8 g/dL (6.4-8.2)
[2025-01-04 21:33] LABS: Glucose Negative (Negative)
[2025-01-04 21:43] LABS: Cannabinoids THC Positive (Negative); METHADONE URINE SCREEN Negative (Negative)
[2025-01-05] MEDS: Nicotine 21 MG/24 HR PATCH TD (08:14)
[2025-01-05] MEDS: risperiDONE 1 MG TAB 2 MG PO ×2 (08:14→20:11)
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
[2025-01-05] MEDS: LORazepam 1 MG TAB 2 MG PO (10:53)
[2025-01-05] MEDS: Nicotine 4 MG LOZG SUC ×4 (10:53→20:16)
[2025-01-05 12:27] VITALS: BP 107/65; PULSE 105; RESP 18; TEMP 37.5; O2SAT 97
--- NOTE | 2025-01-05 13:58 | CMSP_ITS ---
Date of service: 01/05/25 Time of Service: 13:58 Care Management Safety Plan Status Status: Involuntary Reason for Wait Reason for Wait: Inpatient Admission Safety Plan Safety Plan: INVOLUNTARY FOR INPATIENT PSYCHIATRIC STABILIZATION.? Patient is appropriate in all interactions since arriving at [facility]; Pt has demonstrated appropriate coping and communication skills, has articulated his or her needs and concerns and is fully engaged during staff interactions. Safety plan has been established with patient, and care team, to adhere to patient goals, identify restrictions based on behavioral status, address nutrition, and determine allowed personal belongings, tools for hygiene and personal care. Determine level of activity including ambulation, level of supervision, visitors, and determine privileges based on behaviors and level of engagement by pt. SAFETY PLAN: 1. Will remain on suicide precautions, in paper clothes 2. Will remain in Zone B under direct supervision of one-on-one staff at all times provided by [employer]; HERI, CARD PROCESSING CLERK shipping and receiving coordinator. 3. May have paper cups, plates, finger foods as well as a cardboard spoon with which to eat meals. 4. Follow [facility] Management of the Admitted Behavioral Health Patient policy. 5. Shower available in Zone B without restriction. 6. Personal belongings-soft items permitted at RN discretion. 7. Visitors-none at this time. 8. Activities: soft cart items approved per RN discretion. 9.? Bathroom available in Zone B without restriction. 10. Phone: limited to legal assistant on [facility] cordless phone at RN discretion. Due to INVOLUNTARY status, patient is being held at [facility] by the Department of Mental Health ([facility]) until 2nd certification by [facility] Psychiatrist can be performed (within 24 hours). Staff will provide de-escalation support (CPI) as needed. If patient wishes to leave [facility], staff will contact [facility] Crisis Screener ([phone]) and Health Care Coordinator ([phone]) as soon as possible. In the event of elopement, notify [place] Police ([phone]). Patient is currently involuntarily at [facility]. [facility] Frontline [employer] Set Up Technician will continue seeking placement. Please contact the Health Care Coordinator for any needed changes to Safety Plan. Safety plan has been provided to interdepartmental care team. Patient will be transported by [employer] at time of discharge.
--- NOTE | 2025-01-05 13:58 | PDOC.CMSAFE ---
Date of service: 01/05/25 Time of Service: 13:58 Care Management Safety Plan Status Status: Involuntary Reason for Wait Reason for Wait: Inpatient Admission Safety Plan Safety Plan: INVOLUNTARY FOR INPATIENT PSYCHIATRIC STABILIZATION.? Patient is appropriate in all interactions since arriving at [facility]; Pt has demonstrated appropriate coping and communication skills, has articulated his or her needs and concerns and is fully engaged during staff interactions. Safety plan has been established with patient, and care team, to adhere to patient goals, identify restrictions based on behavioral status, address nutrition, and determine allowed personal belongings, tools for hygiene and personal care. Determine level of activity including ambulation, level of supervision, visitors, and determine privileges based on behaviors and level of engagement by pt. SAFETY PLAN: 1. Will remain on suicide precautions, in paper clothes 2. Will remain in Zone B under direct supervision of one-on-one staff at all times provided by [employer]; HERI, PERSONNEL PLACEMENT SPECIALIST stile ripsaw operator. 3. May have paper cups, plates, finger foods as well as a cardboard spoon with which to eat meals. 4. Follow [facility] Management of the Admitted Behavioral Health Patient policy. 5. Shower available in Zone B without restriction. 6. Personal belongings-soft items permitted at RN discretion. 7. Visitors-none at this time. 8. Activities: soft cart items approved per RN discretion. 9.? Bathroom available in Zone B without restriction. 10. Phone: limited to legal researcher on [facility] cordless phone at RN discretion. Due to INVOLUNTARY status, patient is being held at [facility] by the Department of Mental Health ([facility]) until 2nd certification by [facility] Psychiatrist can be performed (within 24 hours). Staff will provide de-escalation support (CPI) as needed. If patient wishes to leave [facility], staff will contact [facility] Crisis Screener ([phone]) and Big Data Platform Architect ([phone]) as soon as possible. In the event of elopement, notify [place] [employer] [facility] [employer] ([phone]). Patient is currently involuntarily at [facility]. [facility] Frontline Log Tumbler will continue seeking placement. Please contact the Big Data Platform Architect for any needed changes to Safety Plan. Safety plan has been provided to interdepartmental care team. Patient will be transported by [employer] at time of discharge.
--- NOTE | 2025-01-05 16:47 | NUR.NOTE ---
Patient advised that he would not be going anywhere today. Patient agreed to let his mother picker and sorter load and unload his keys so she could feed his rats. [place] given to mother.
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
[2025-01-05] MEDS: LORazepam 1 MG TAB (18:21)
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
== END 2025-01-05 21:37 | disposition left against medical advice (07) ==
PROVIDERS: Emergency Medicine; Emergency Provider Student in an Organized Health Care Education/Training Program; PCP Family Medicine
DX: F31.9 Bipolar disorder, unspecified (principal); F17.290 Nicotine dependence, other tobacco product, uncomplicated; Z53.29 Procedure and treatment not carried out because of patient's decision for other reasons
CPT/HCPCS: 00123; 80053; 80307; 99284; 80320; 81003; 84439; 84443; 85025

== ENCOUNTER 2025-01-31 22:07 | Emergency (ER) | payer MEDICAID, SELFPAY ==
[2025-01-31 22:10] VITALS: BP 160/86; PULSE 84; RESP 16; TEMP 35.8; O2SAT 98
[2025-01-31] MEDS: LORazepam 1 MG TAB 2 MG PO (22:33)
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
[2025-01-31] MEDS: Nicotine 2 MG LOZG SUC (23:43)
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
--- NOTE | 2025-02-01 08:19 | CMSP_ITS ---
Date of service: 02/01/25 Time of Service: 08:27 Care Management Safety Plan Status Status: Involuntary Reason for Wait Reason for Wait: Inpatient Admission Safety Plan Safety Plan: INVOLUNTARY FOR INPATIENT PSYCHIATRIC STABILIZATION.? Patient is appropriate in all interactions since arriving at [facility]; Pt has demonstrated appropriate coping and communication skills, has articulated his or her needs and concerns and is fully engaged during staff interactions. Safety plan has been established with patient, and care team, to adhere to patient goals, identify restrictions based on behavioral status, address nutrition, and determine allowed personal belongings, tools for hygiene and personal care. Determine level of activity including ambulation, level of supervision, visitors, and determine privileges based on behaviors and level of engagement by pt. SAFETY PLAN: 1. Will remain on suicide precautions, in paper clothes 2. Will remain in Zone B under direct supervision of one-on-one staff at all times provided by [employer]; HERI, HOMICIDE SQUAD COMMANDING OFFICER labor training manager. 3. May have paper cups, plates, finger foods as well as a cardboard spoon with which to eat meals. 4. Follow [facility] Management of the Admitted Behavioral Health Patient policy. 5. Shower available in Zone B without restriction. 6. Personal belongings-soft items permitted at RN discretion. 7. Visitors-none at this time. 8. Activities: soft cart items approved per RN discretion. 9.? Bathroom available in Zone B without restriction. 10. Phone: limited to legal administrator on [facility] cordless phone at RN discretion. Due to INVOLUNTARY status, patient is being held at [facility] by the Department of Mental Health ([facility]) until 2nd certification by [facility] Psychiatrist can be performed (within 24 hours). Staff will provide de-escalation support (CPI) as needed. If patient wishes to leave [facility], staff will contact [facility] Crisis Screener ([phone]) and [employer] Inspector ([phone]) as soon as possible. In the event of elopement, notify [place] [employer] ([phone]). Patient is currently involuntarily at [facility]. [facility] Frontline Photograph Retoucher will continue seeking placement. Please contact the [employer] Inspector for any needed changes to Safety Plan. Safety plan has been provided to interdepartmental care team. Patient will be transported by [employer] at time of discharge.
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
--- NOTE | 2025-02-01 08:19 | PDOC.CMSAFE ---
Date of service: 02/01/25 Time of Service: 08:27 Care Management Safety Plan Status Status: Involuntary Reason for Wait Reason for Wait: Inpatient Admission Safety Plan Safety Plan: INVOLUNTARY FOR INPATIENT PSYCHIATRIC STABILIZATION.? Patient is appropriate in all interactions since arriving at [facility]; Pt has demonstrated appropriate coping and communication skills, has articulated his or her needs and concerns and is fully engaged during staff interactions. Safety plan has been established with patient, and care team, to adhere to patient goals, identify restrictions based on behavioral status, address nutrition, and determine allowed personal belongings, tools for hygiene and personal care. Determine level of activity including ambulation, level of supervision, visitors, and determine privileges based on behaviors and level of engagement by pt. SAFETY PLAN: 1. Will remain on suicide precautions, in paper clothes 2. Will remain in Zone B under direct supervision of one-on-one staff at all times provided by [employer]; HERI, EXECUTIVE ASSOCIATE stock handler floorperson. 3. May have paper cups, plates, finger foods as well as a cardboard spoon with which to eat meals. 4. Follow [facility] Management of the Admitted Behavioral Health Patient policy. 5. Shower available in Zone B without restriction. 6. Personal belongings-soft items permitted at RN discretion. 7. Visitors-none at this time. 8. Activities: soft cart items approved per RN discretion. 9.? Bathroom available in Zone B without restriction. 10. Phone: limited to legal instructor on [facility] cordless phone at RN discretion. Due to INVOLUNTARY status, patient is being held at [facility] by the Department of Mental Health ([facility]) until 2nd certification by [facility] Psychiatrist can be performed (within 24 hours). Staff will provide de-escalation support (CPI) as needed. If patient wishes to leave [facility], staff will contact [facility] Crisis Screener ([phone]) and [employer] ([phone]) as soon as possible. In the event of elopement, notify [place] [employer] [employer] Police ([phone]). Patient is currently involuntarily at [facility]. [facility] Frontline Spinner Open End will continue seeking placement. Please contact the [employer] for any needed changes to Safety Plan. Safety plan has been provided to interdepartmental care team. Patient will be transported by [facility] at time of discharge.
[2025-02-01] MEDS: risperiDONE 1 MG TAB 2 MG PO (10:32)
[2025-02-01] MEDS: Nicotine 2 MG LOZG SUC (13:17)
--- NOTE | 2025-02-01 17:00 | PDOC.MHCN ---
Date of service: 02/01/25 Time of Service: 11:45 PHQ-9 Over the last 2 weeks, how often have you been bothered by any of the following problems? 1. Little interest or pleasure in doing things: not at all 2. Feeling down, depressed, or hopeless: not at all 3. Trouble falling or staying asleep, or sleeping too much: not at all 4. Feeling tired or having little energy: not at all 5. Poor appetite or overeating: not at all 6. Feeling bad about yourself - or that you are a failure or have let yourself and your family down: not at all 7. Trouble concentrating on things, such as reading the newspaper or watching television: not at all 8. Moving or speaking so slowly that other people could have noticed? - Or the opposite - being so fidgety or restless that you have been moving around a lot more than usual: not at all 9. Thoughts that you would be better off or of hurting yourself in some way: not at all Total score: 0 PHQ-9 Results: Negative Source: Developed by Drs. Piero Zaman, Doreen Power, Khari Duque and colleagues, with an educational rosa from [employer]. 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 Intent: yes, has intent to harm others Plan: no, does not have a plan. Risk: Does risk to harm exist?: yes. Risk: High Risk Duty to warn indicated: No Asssessment/Mental Status Appearance: Disheveled and Poor hygiene Attitude: Cooperative, Demanding and Other Behavior: Posturing and Agitated Speech: Normal Affect: Cogruent with mood Mood: Stressed and Irritable Thought process: Other Hallucinations: No Delusions: yes, Episcopalian, Persectory/Paranoid and Bizarre Attention: Unremarkable Perception: Other Orientation: Fully orientated Memory: Intact Insight: Poor Judgement: Poor Neurovegetative Symptoms Sleep: No change Appetitie: Decrease Interests: No change Energy: No change Libido: No change Substance Use: Do you use nicotine?: Yes Have you used substances in the last 7 days?: yes, marijuana, 3+ bowls per day Additional Issues: Assaultive/Threatening Behavior: Yes Medical Concerns: No Client engaged in active self harm w/weapon: No Threatening to run away: No Child reported abuse/neglect: No Voluntarily presenting for services: No Domestic violence is a concern: No Extreme Psychosis or extreme behavior is present: Yes Impression The client presented as calm and cooperative, maintaining good eye contact despite a malodorous appearance, dressed in blue safety scrubs and yellow grippy socks. He awoke for the assessment and agreed to speak with the team, although he frequently changed positions, alternating between laying down and sitting up without getting off the bed. The client refused food and reported only having a small amount of water today. He denied suicidal ideation (SI) and non-suicidal self-injury (NSSI), but claimed to experience indirect, telepathic homicidal ideation (HI). The client expressed a connection to a divine source, stating that God is Dad and that God is furious about his detainment. He proudly proclaimed, I do miracle-work all the time, I'm constantly creating miracles, and requested that the team contact the [place] or other important world leaders to inform them of his location. The client challenged the team's belief in his claims and displayed a victim mentality regarding recent events, asserting that he acted in self-defense. His insight and judgment appeared poor, as he viewed himself as a deity or saint, suggesting a grandiose self-perception. Additionally, he remains a risk to others in the community, targeting anyone who bothers him or looks at him in a challenging way. He angrily labeled those involved in the weekend events as insignificant, referring to them as tiny cubes of cheese. The client arrived at [facility] on a warrant for emergency evaluation (EE), with a second certification pending. Plan/Disposition Recommended Disposition: Hospitalization No, PHOTOGRAPHY EDITOR and Psych Screening. Plan: Awaiting physician's cert and 2nd certification. Person reported agreement to plan: No Reports/communication Outcome discussed with: ED/Personnel
--- NOTE | 2025-02-02 01:13 | PDOC.MHPN2 ---
Date of service: 02/01/25 Time of Service: 19:44 Mental Health Emergency Note Release [facility] release signed:: Yes Reason for Visit In the last 2 weeks has the pt presented for ES prior to today?: No Asssessment/Mental Status Appearance: Disheveled and Poor hygiene Attitude: Cooperative and Guarded Behavior: Unremarkable Speech: Normal Affect: Normal Mood: Other (Bored) Thought process: Unremarkable Hallucinations: yes, Visual and Auditory Delusions: yes, Lutheran, Persectory/Paranoid, Grandiose and Bizarre Attention: Unremarkable Perception: Derealization Orientation: Fully orientated Memory: Intact Insight: Poor Judgement: Poor Neurovegetative Symptoms Sleep: No change Appetitie: No change Interests: No change Energy: No change Libido: Not applicable Impression Skyler reported no change in his sleep, appetite, energy, and interests. Skyler was being served dinner when this typewriter assembler came. Skyler has been reading the bible but has not engaged in any other activity provided by the hospital. Skyler was reminded of the resources available to keep himself occupied. Skyler reported no SI, HI, or NSSI, but still is experiencing hallucinations and delusions. Skyler reported that he had not showered yet but might later. Plan/Disposition Recommended Disposition: Hospitalization (Involuntary ) facilities contacted. Plan: Skyler will remain at [facility] until inpatient placement has been found for her current involuntary status. Skyler will need twice daily assessments till placed. Reports/communication Outcome discussed with: ED/Personnel
[2025-02-02] MEDS: Nicotine 2 MG LOZG SUC ×3 (07:29→17:16)
--- NOTE | 2025-02-02 07:36 | ED.PROG1_ITS ---
Date of service: 02/02/25 Time of Service: 07:38 Psychiatric Border Handoff Update Brief Story: 24 year old male presents for HI, erractic behavior under police custody. Endorsing delusions. Hx of bipolar. Placed under involuntary hold, now taking risperidone. No acute events overnight. Status: EE Able to leave: no, this patient is an EE Behavioral Concerns: Erratic and aggresive behavior. Potential Disposition: Inpatient psych-facility Barriers to Disposition: Bed search Medical Concerns: None Mediation Reconciliation performed: Yes Code Status ordered: Yes Diet ordered: Yes Future to do Items: Patient accepted to [facility], doc-to-doc performed, expected time of transfer for 1899 today Discharge Plan Disposition Patient Disposition: Psychiatric Hospital/Unit Specific Psychiatric Facility: [facility] Condition: Fair Discharge Details Clinical Impression: Homicidal ideation, Shayla Primary Care Provider: Laron Smith ED Provider: Daniele De Souza Home Meds and New Rx's Prescriptions: Continued risperidone 1 mg tablet 2 mg PO BID Discharge Instructions Instructions: Bipolar disorder
[2025-02-02] MEDS: risperiDONE 1 MG TAB 2 MG PO (07:52)
--- NOTE | 2025-02-02 12:19 | CMSP_ITS ---
Date of service: 02/02/25 Time of Service: 12:19 Care Management Safety Plan Status Status: Involuntary Reason for Wait Reason for Wait: Inpatient Admission Safety Plan Safety Plan: INVOLUNTARY FOR INPATIENT PSYCHIATRIC STABILIZATION.? Patient is appropriate in all interactions since arriving at [facility]; Pt has demonstrated appropriate coping and communication skills, has articulated his or her needs and concerns and is fully engaged during staff interactions. Safety plan has been established with patient, and care team, to adhere to patient goals, identify restrictions based on behavioral status, address nutrition, and determine allowed personal belongings, tools for hygiene and personal care. Determine level of activity including ambulation, level of supervision, visitors, and determine privileges based on behaviors and level of engagement by pt. SAFETY PLAN: 1. Will remain on suicide precautions, in paper clothes 2. Will remain in Zone B under direct supervision of one-on-one staff at all times provided by [employer]; HERI, DENTAL FINANCIAL COORDINATOR lighting director. 3. May have paper cups, plates, finger foods as well as a cardboard spoon with which to eat meals. 4. Follow [facility] Management of the Admitted Behavioral Health Patient policy. 5. Shower available in Zone B without restriction. 6. Personal belongings-soft items permitted at RN discretion. 7. Visitors-none at this time. 8. Activities: soft cart items approved per RN discretion. 9.? Bathroom available in Zone B without restriction. 10. Phone: limited to personal injury legal assistant on [facility] cordless phone at RN discretion. Due to INVOLUNTARY status, patient is being held at [facility] by the Department of Mental Health ([facility]) until 2nd certification by [facility] Psychiatrist can be performed (within 24 hours). Staff will provide de-escalation support (CPI) as needed. If patient wishes to leave [facility], staff will contact [facility] Crisis Screener ([phone]) and Engineer And Geologist ([phone]) as soon as possible. In the event of elopement, notify [place] Police ([phone]). Patient is currently involuntarily at [facility]. [facility] Frontline Construction Plumber will continue seeking placement. Please contact the Engineer And Geologist for any needed changes to Safety Plan. Safety plan has been provided to interdepartmental care team. Patient will be transported by [employer] at time of discharge.
--- NOTE | 2025-02-02 12:19 | PDOC.CMSAFE ---
Date of service: 02/02/25 Time of Service: 12:19 Care Management Safety Plan Status Status: Involuntary Reason for Wait Reason for Wait: Inpatient Admission Safety Plan Safety Plan: INVOLUNTARY FOR INPATIENT PSYCHIATRIC STABILIZATION.? Patient is appropriate in all interactions since arriving at [facility]; Pt has demonstrated appropriate coping and communication skills, has articulated his or her needs and concerns and is fully engaged during staff interactions. Safety plan has been established with patient, and care team, to adhere to patient goals, identify restrictions based on behavioral status, address nutrition, and determine allowed personal belongings, tools for hygiene and personal care. Determine level of activity including ambulation, level of supervision, visitors, and determine privileges based on behaviors and level of engagement by pt. SAFETY PLAN: 1. Will remain on suicide precautions, in paper clothes 2. Will remain in Zone B under direct supervision of one-on-one staff at all times provided by [employer]; HERI, DIVER PUMPER medical authorization specialist. 3. May have paper cups, plates, finger foods as well as a cardboard spoon with which to eat meals. 4. Follow [facility] Management of the Admitted Behavioral Health Patient policy. 5. Shower available in Zone B without restriction. 6. Personal belongings-soft items permitted at RN discretion. 7. Visitors-none at this time. 8. Activities: soft cart items approved per RN discretion. 9.? Bathroom available in Zone B without restriction. 10. Phone: limited to legal compliance officer on [facility] cordless phone at RN discretion. Due to INVOLUNTARY status, patient is being held at [facility] by the Department of Mental Health ([facility]) until 2nd certification by [facility] Psychiatrist can be performed (within 24 hours). Staff will provide de-escalation support (CPI) as needed. If patient wishes to leave [facility], staff will contact [facility] Crisis Screener ([phone]) and Command And Control Officer ([phone]) as soon as possible. In the event of elopement, notify [place] Police ([phone]). Patient is currently involuntarily at [facility]. [facility] Frontline Wind Turbine Installer will continue seeking placement. Please contact the Command And Control Officer for any needed changes to Safety Plan. Safety plan has been provided to interdepartmental care team. Patient will be transported by [employer] at time of discharge.
--- NOTE | 2025-02-02 12:20 | CMPROGNOTE_ITS ---
Date of service: 02/02/25 Time of Service: 12:20 Care Management Progress Note Progress Note Text Progress Note Text: CM huddled with [facility], ED provider, ED RN, ED charge master analyst, and RN boat and plant utility supervisor to discuss Skyler's plan of care. Per [facility] has not happened yet, but [facility] is expected to reach out shortly. Transport will be arranged by [facility], as Skyler is involuntary. Safety plan remains in place while waiting for disposition. CM will continue to follow. Social Determinants of Health Screening Will the Patient Participate in the Screening?: Unable to obtain
--- NOTE | 2025-02-02 12:20 | PDOC.CMPRO ---
Date of service: 02/02/25 Time of Service: 12:20 Care Management Progress Note Progress Note Text Progress Note Text: CM huddled with [facility], ED provider, ED RN, ED charger tester, and RN farm equipment maintenance supervisor to discuss Skyler's plan of care. Per [facility] has not happened yet, but [facility] is expected to reach out shortly. Transport will be arranged by [facility], as Skyler is involuntary. Safety plan remains in place while waiting for disposition. CM will continue to follow. Social Determinants of Health Screening Will the Patient Participate in the Screening?: Unable to obtain
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
== END 2025-02-02 18:33 ==
PROVIDERS: Emergency Provider Emergency Medicine; PCP Family Medicine
DX: F30.9 Manic episode, unspecified (principal); R45.850 Homicidal ideations
CPT/HCPCS: 99285 ×3; 00123; 96127; H0046